=== PATIENT | female | born 1940 | race Caucasian/White ===

== ENCOUNTER 2019-02-27 15:36 | Inpatient (IN) | payer MEDICARE, OTHER ==
[~2019-02-27] VITALS: Ht 157.5 cm; Wt 68.5 kg
[2019-02-27] MEDS ORDERED: SOD CHLORIDE 0.9% 1,000 ML IV STA (15:39)
[2019-02-27 15:46] VITALS: Ht 157.5 cm; Wt 68.5 kg
[2019-02-27] MEDS ORDERED: KETOROLAC 15 MG INJ IV STA (15:52)
[2019-02-27] MEDS ORDERED: LORAZEPAM 2 MG INJ IV ONE (16:00)
[2019-02-27] MEDS ORDERED: ATEN50TA ORAL (16:30)
[2019-02-27] MEDS ORDERED: QUET50TA22 PO (16:30)
[2019-02-27] MEDS ORDERED: ESCI10TA48 ORAL (16:30)
[2019-02-27] MEDS ORDERED: BACL10TA ORAL (16:30)
[2019-02-27] MEDS ORDERED: IBUP-1544 ORAL (16:30)
[2019-02-27] MEDS ORDERED: TRAM50TA2 ORAL (16:30)
[2019-02-27] MEDS ORDERED: HYDR12.53 ORAL (16:30)
[2019-02-27] MEDS ORDERED: ARIP5TAB20 ORAL (16:30)
[2019-02-27] MEDS ORDERED: FURO20TA3 ORAL (16:30)
--- NOTE | 2019-02-27 17:24 | ERD ---
ER Documentation Chief Complaint Chief Complaint BIBA; ALTERED MORE THAN USUAL ACCDG TO FAMILY; MOANING; A/OX1 HPI This is an 78-year-old woman brought in by EMS from [facility] for complaints of chest pain today left hip pain x2 days, weakness, and hypotension at the facility. Symptoms were noted by family members were visiting her today. Her chest pain cannot be accurately described, but she denies cough, she has had no fevers, no vomiting or diarrhea. HPI was limited but supplemented by reviewing longterm records, and speaking to EMS and family members later at the bedside. ROS All systems reviewed and are negative except as per history of present illness. Medications Home Meds Reported Medications Aripiprazole (Aripiprazole) 5 Mg Tablet, 1 TAB ORAL DAILY 02/27/19 Escitalopram Oxalate* (Escitalopram Oxalate*) 10 Mg Tablet, 1 TAB ORAL QHS 02/27/19 Furosemide* (Furosemide*) 20 Mg Tablet, 1 TAB ORAL DAILY 02/27/19 Atenolol* (Atenolol*) 50 Mg Tablet, 1 TAB ORAL DAILY 02/27/19 Baclofen* (Baclofen*) 10 Mg Tablet, 1 TAB ORAL BID PRN for MUSCLE SPASMS 02/27/19 Hydrochlorothiazide (Hydrochlorothiazide) 12.5 Mg Capsule, 1 CAP ORAL DAILY 02/27/19 Quetiapine Fumarate* (Quetiapine Fumarate*) 50 Mg Tablet, 50 MG PO HS, TAB 02/27/19 Ibuprofen* (Ibuprofen*) 800 Mg Tablet, 1 TAB ORAL Q8 02/27/19 Tramadol HCl (Tramadol HCl) 50 Mg Tablet, 1 TAB ORAL Q12 02/27/19 Allergies Allergies: Coded Allergies: No Known Allergy (Unverified , 02/27/19) PMhx/Soc Hypertension, Alzheimer dementia, left intratrochanteric hip fracture status post fall 2 months ago Anesthesia Reaction: No Hx Neurological Disorder: No Hx Respiratory Disorders: No Hx Cardiac Disorders: Yes (HTN) Hx Psychiatric Problems: No Hx Miscellaneous Medical Probl: No (GEN BODY PAIN) Hx Alcohol Use: No Hx Substance Use: No Hx Tobacco Use: No Smoking Status: Never smoker FmHx Family History: No diabetes Physical Exam Vitals Vital Signs Date Temp Pulse Resp B/P (MAP) Pulse Ox O2 O2 Flow FiO2 Time Delivery Rate 02/27/19 68 18 126/90 100 Room Air 17:29 (102) 02/27/19 98.0 65 20 139/66 99 15:46 (90) Physical Exam Const: In moderate discomfort, anxious, afebrile HEENT: Dry mucous membranes, pink conjunctive a, no cervical spine deformity or tenderness Resp: Clear to auscultation bilaterally Cardio: Regular rate and rhythm, no murmurs Abd: Soft, non tender, non distended. No guarding or masses Skin: No petechiae or rashes, mottled skin to the lower extremities bilaterally, no abrasions hematomas or contusions Back: No midline or flank tenderness Ext: No cyanosis, 2+ pitting edema in the lower extremities bilaterally, capillary refill less than 2 seconds, osteoarthritic changes to the knees Neur: Eyes open, patient moving all extremities, agitated, pupils equal round reactive to light, responsive to verbal stimuli Result Diagram: 02/27/19 1550 02/27/19 1550 Results 24 hrs Laboratory Tests Test 02/27/19 15:50 02/27/19 16:02 White Blood Count 13.8 10^3/ul Red Blood Count 4.40 10^6/ul Hemoglobin 12.2 g/dl Hematocrit 39.1 % Mean Corpuscular Volume 88.9 fl Mean Corpuscular Hemoglobin 27.7 pg Mean Corpuscular Hemoglobin Concent 31.2 g/dl Red Cell Distribution Width 13.0 % Platelet Count 410 10^3/UL Mean Platelet Volume 10.1 fl Immature Granulocytes % 0.600 % Neutrophils % 78.4 % Lymphocytes % 13.9 % Monocytes % 6.0 % Eosinophils % 0.9 % Basophils % 0.2 % Nucleated Red Blood Cells % 0.0 /100WBC Immature Granulocytes # 0.080 10^3/ul Neutrophils # 10.8 10^3/ul Lymphocytes # 1.9 10^3/ul Monocytes # 0.8 10^3/ul Eosinophils # 0.1 10^3/ul Basophils # 0.0 10^3/ul Nucleated Red Blood Cells # 0.0 10^3/ul Prothrombin Time 13.1 Sec Prothrombin Time Ratio 1.0 INR International Normalized Ratio 0.98 Activated Partial Thromboplast Time 27.4 Sec Sodium Level 138 mmol/L Potassium Level 3.6 mmol/L Chloride Level 98 mmol/L Carbon Dioxide Level 30 mmol/L Anion Gap 10 Blood Urea Nitrogen 38 mg/dl Creatinine 0.98 mg/dl Est Glomerular Filtrat Rate mL/min mL/min Glucose Level 174 mg/dl Calcium Level 8.6 mg/dl Total Bilirubin 0.6 mg/dl Direct Bilirubin 0.00 mg/dl Indirect Bilirubin 0.6 mg/dl Aspartate Amino Transf (AST/SGOT) 65 IU/L Alanine Aminotransferase (ALT/SGPT) 45 IU/L Alkaline Phosphatase 111 IU/L Troponin I < 0.012 ng/ml B-Type Natriuretic Peptide 2840 PG/ML Total Protein 6.7 g/dl Albumin 3.5 g/dl Globulin 3.20 g/dl Albumin/Globulin Ratio 1.09 Lipase 206 U/L Urine Color JOHN Urine Clarity SLIGHTLY CLOUDY Urine pH 5.0 Urine Specific [place] 1.017 Urine Ketones NEGATIVE mg/dL Urine Nitrite NEGATIVE mg/dL Urine Bilirubin NEGATIVE mg/dL Urine Urobilinogen 2+ mg/dL Urine Leukocyte Esterase NEGATIVE Delgado/ul Urine Microscopic RBC 1 /HPF Urine Microscopic WBC 4 /HPF Urine Bacteria FEW /HPF Urine Hemoglobin NEGATIVE mg/dL Urine Glucose NEGATIVE mg/dL Urine Total Protein NEGATIVE mg/dl Current Medications Medications Dose Sig/Brittney Start Time Status Last (Trade) Ordered Route PRN Stop Time Admin Dose Reason Admin Lorazepam 1 mg ONCE ONCE 02/27/19 DC 02/27/19 (Ativan) IV 16:00 16:03 02/27/19 16:01 Sodium 1,000 ml @ Q1H STAT 02/27/19 DC 02/27/19 Chloride 1,000 mls/hr IV 15:39 16:04 02/27/19 16:38 Ketorolac 15 mg ONCE STAT 02/27/19 DC 02/27/19 Tromethamine IV 15:52 16:03 (Toradol) 02/27/19 15:53 Aspirin 162 mg ONCE ONCE 02/27/19 DC (Aspirin) PO 18:00 02/27/19 18:01 Aspirin 300 mg ONCE ONCE 02/27/19 (Aspirin) WV 18:30 02/27/19 18:31 Procedures/MDM IV line was established patient was placed on rn cardiac rhythm strip revealed a sinus rhythm at about 70 bpm with upright P and T waves. Patient was afebrile For dehydration administered 1 L normal saline IV For agitation I administered lorazepam 1 mg IV and Toradol 15 mg IV x1 for pain 1 view chest x-ray performed, read by me reveals atelectatic changes bilaterally, no acute infiltrates, no pneumothorax CT scan of the brain was negative for acute bleed mass or shift. 1 view pelvis x-ray performed, read by me reveals a left intratrochanteric femur fracture and osteoarthritic changes bilaterally, no other fracture dislocations noted Doppler ultrasound of the bilateral lower extremities was performed, no acute DVT noted. EKG performed, read by me revealed a normal sinus rhythm at 72 bpm, normal axis, narrow QRS complex, no concerning ST elevations or depressions noted CBC was unremarkable, electrolytes revealed dehydration with a BUN/creatinine 38/1, liver function tests normal, troponin negative, BNP elevated, urinalysis negative for infection. I administered aspirin 300 mg per rectum for cardioprotective measures. Departure Diagnosis: Primary Impression: Acute encephalopathy Additional Impressions: Acute dehydration Chest pain Chest pain type: unspecified Qualified Codes: R07.9 - Chest pain, unspecified Condition: JUSTINA Frederick MD February 27, 2019 17:24
[2019-02-27] MEDS ORDERED: ASPIRIN 81 MG TAB PO ONE (18:00)
[2019-02-27] MEDS ORDERED: ASPIRIN 300 MG SUPP PR ONE (18:30)
[2019-02-27] MEDS ORDERED: traMADol 50 MG TAB PO PRN (18:30)
[2019-02-27] MEDS ORDERED: DOCUSATE SODIUM 100 MG CAP PO PRN (18:30)
[2019-02-27] MEDS ORDERED: NACL 0.9% 3 ML SYG IV SCH (18:30)
[2019-02-27] MEDS ORDERED: NITROGLYCERIN (SL) 0.4 MG TAB SL PRN (18:30)
[2019-02-27] MEDS ORDERED: ONDANSETRON 4 MG INJ IV PRN (18:30)
[2019-02-27] MEDS ORDERED: ACETAMINOPHEN 325 MG TAB PO PRN (18:30)
[2019-02-27] MEDS ORDERED: MAGNESIUM HYDROXIDE 30ML CUP PO PRN (18:30)
--- NOTE | 2019-02-27 18:42 | HP ---
Date/Time of Note Date/Time of Note DATE: 02/27/19 TIME: 18:24 Assessment/Plan VTE Prophylaxis SCD applied (from Nsg): Yes Pharmacological prophylaxis: heparin Lines/Catheters IV Catheter Type (from Nrsg): Saline Lock Urinary Cath still in place: Yes Reason Cath still needed: terminal illness/intractable pain Assessment/Plan Assessment/Plan 1. Acute metabolic encephalopathy - per family, more altered than normal and concerned about dehydration - will monitor for improvement in mentation 2. Acute on chronic heart failure - BNP elevated - ECHO ordered to assess EF - CXR negative for congestion - will continue Lasix daily and monitor I/O and daily weights - patient does not have any pulmonary congestion but does have b/l LE edema 3. Left hip fracture - noted with fall 2 months ago and was treated at [facility]. Will triage for records given family states she had R hip repairs but also unsure what side - if new, will consult ortho for evaluation and cardiology consult for clearance - LE dopplers negative 4. Acute chest pain - trop negative and will trend - most likely secondary to CHF - nitro and O2 PRN 5. Dementia - stable - per family, was able to feed self and ambulate to bathroom prior to fall 6. Gait instability - will await records from [place] and PT/OT based on results 7. Diet - Cardiac 8. DVT ppx - Heparin 9. Disposition - Admit to telemetry for treatment of acute congestive heart failure. Will awaiting records from [facility] prior to pursing intervention for L hip fracture. Result Diagram: 02/27/19 1550 02/27/19 1550 Results 24hrs Laboratory Tests Test 02/27/19 15:50 02/27/19 16:02 White Blood Count 13.8 H Red Blood Count 4.40 Hemoglobin 12.2 Hematocrit 39.1 Mean Corpuscular Volume 88.9 Mean Corpuscular Hemoglobin 27.7 L Mean Corpuscular Hemoglobin Concent 31.2 L Red Cell Distribution Width 13.0 Platelet Count 410 Mean Platelet Volume 10.1 Immature Granulocytes % 0.600 H Neutrophils % 78.4 H Lymphocytes % 13.9 L Monocytes % 6.0 Eosinophils % 0.9 Basophils % 0.2 Nucleated Red Blood Cells % 0.0 Immature Granulocytes # 0.080 H Neutrophils # 10.8 H Lymphocytes # 1.9 Monocytes # 0.8 Eosinophils # 0.1 Basophils # 0.0 Nucleated Red Blood Cells # 0.0 Prothrombin Time 13.1 Prothrombin Time Ratio 1.0 INR International Normalized Ratio 0.98 Activated Partial Thromboplast Time 27.4 Sodium Level 138 Potassium Level 3.6 Chloride Level 98 Carbon Dioxide Level 30 Anion Gap 10 Blood Urea Nitrogen 38 H Creatinine 0.98 Est Glomerular Filtrat Rate mL/min Glucose Level 174 Calcium Level 8.6 Total Bilirubin 0.6 Direct Bilirubin 0.00 Indirect Bilirubin 0.6 Aspartate Amino Transf (AST/SGOT) 65 H Alanine Aminotransferase (ALT/SGPT) 45 Alkaline Phosphatase 111 Troponin I < 0.012 B-Type Natriuretic Peptide 2840 H Total Protein 6.7 Albumin 3.5 Globulin 3.20 Albumin/Globulin Ratio 1.09 Lipase 206 Urine Color JOHN Urine Clarity SLIGHTLY CLOUDY A Urine pH 5.0 Urine Specific [place] 1.017 Urine Ketones NEGATIVE Urine Nitrite NEGATIVE Urine Bilirubin NEGATIVE Urine Urobilinogen 2+ H Urine Leukocyte Esterase NEGATIVE Urine Microscopic RBC 1 Urine Microscopic WBC 4 Urine Bacteria FEW A Urine Hemoglobin NEGATIVE Urine Glucose NEGATIVE Urine Total Protein NEGATIVE HPI/ROS Admit Date/Time Admit Date/Time 02/27/19 at 1830 Hx of Present Illness 78 yo F with PMH Alzheimers and HTN presented to ED from board and care for altered mental status. Patients is lethargic since given ativan and history obtained from family at bedside and ED physician. Per family, patient was not acting her normal self and was moaning. She was complaining of chest discomfort and BP was taken by daughter in law. She noticed her BP was low and called 9- 11. She was concerned about dehydration causing her symptoms. Patient did complaining to Ed physician of dizziness and chest discomfort and left hip pain, but denied any shortness of breath. Patient did have an fall a couple months ago and was seen at [facility] where she was found with hip fracture and "glued back together." Family believes it was right hip but following discharge, she was not able to ambulate despite orthopedic surgeon assuring she would walk again. Prior to fall patient was able to manage her ADLs and ambulate without issues. ROS All 12 systems reviewed and pertinent positives as per HPI. Unable to fully obtain ROS given patient sedated. Constitutional: disoriented PMH/Family/Social Past Medical History Medical History: hypertension, other (alzheimers) Medications Current Medications Aspirin (Aspirin) 300 mg ONCE ONCE TN Last administered on 02/27/19at 18:20; Admin Dose 300 MG; Start 02/27/19 at 18:30; Stop 02/27/19 at 18:31 Aripiprazole (Abilify) 5 mg DAILY PO ; Start 02/28/19 at 09:00; Status UNV Atenolol (Tenormin) 50 mg DAILY PO ; Start 02/28/19 at 09:00; Status UNV Escitalopram Oxalate (Lexapro) 10 mg QHS PO ; Start 02/27/19 at 21:00; Status UNV Tramadol HCl (Ultram) 50 mg Q8H PRN PO PAIN LEVEL 4-6; Start 02/27/19 at 18:30; Status UNV Miscellaneous Information 50 mg HS PO ; Start 02/27/19 at 21:00; Status UNV Furosemide (Lasix) 20 mg DAILY IV ; Start 02/28/19 at 09:00 Coded Allergies: No Known Allergy (Unverified , 02/27/19) Past Surgical History Past Surgical Hx: other (right hip repair) Family History Significant Family History: no pertinent family hx Social History Alcohol Use: none Smoking Status: Never smoker Drug Use: none Exam/Review of Systems Vital Signs Vitals Vital Signs Date Temp Pulse Resp B/P (MAP) Pulse Ox O2 O2 Flow FiO2 Time Delivery Rate 02/27/19 68 18 126/90 100 Room Air 17:29 (102) 02/27/19 98.0 15:46 Exam Exam General: Patient is in no acute distress. sedated after given ativan in ED. HEENT: Atraumatic, normocephalic. The pupils are equal, round and reactive. Extraocular motor are intact Neck: Supple with full range of motion. No rigidity or meningismus Chest: Nontender Lungs: Clear to auscultation bilaterally, no wheezing or rhonchi Heart: Normal S1-S2, Regular rhythm and rate. No murmur, S3, or S4 Abdomen: Soft , nontender, nondistended , bowel sounds are present. No guarding no rebound tenderness , No masses or organomegaly. No costovertebral temporal angle mass Extremities: Normal to inspection, 1+ pitting edema LLE. no cyanosis or clubbing Skin: no rashes or lesions Additional Comments Home medications reviewed PROCEDURE: US Lower extremity Venous. Bilateral CLINICAL INDICATION: swelling TECHNIQUE: Multiple sonographic images of the bilateral lower extremity deep venous system was obtained utilizing grayscale, color-flow, compressive sonography and doppler imaging with augmentation. The images were reviewed on a PACS workstation. COMPARISON: None. FINDINGS: There is normal compressibility and flow within the bilateral common femoral, superficial femoral, posterior tibial, peroneal and popliteal veins. The peroneal veins are poorly visualized due to subcutaneous edema. IMPRESSION: No sonographic evidence for deep venous thrombosis. Subcutaneous edema is seen in the lower extremities. RPTAT: AA .Lynette Persaud MD, Date Time Electronically viewed and signed by .Lynette Persaud MD, MD on 02/27/2019 17:39 PROCEDURE: Pelvis. CLINICAL INDICATION: Status post trauma TECHNIQUE: A single AP view the pelvis. COMPARISON: Pelvis, 01/03/2019 FINDINGS: Since the previous exam there is now a displaced left intertrochanteric fracture with slight superior subluxation of the proximal femur. There is varus deformity of the fracture site. The femoral head is present within the acetabulum. Images of the right femur again demonstrate moderate to severe degenerative changes with joint space narrowing. The osseous structures are osteopenic. Pubic symphysis is intact. The sacroiliac joints are not well visualized. The sacrum is partially obscured secondary to overlying stool content. Soft tissues are unremarkable. IMPRESSION: There is a left intertrochanteric fracture with varus deformity. RPTAT: [facility] Physician Manuel Date Time Electronically viewed and signed by Physician Manuel on 02/27/2019 16:47 PROCEDURE: CT Brain without contrast. CLINICAL INDICATION: Altered level of consciousness TECHNIQUE: A CT of the brain was performed on a multidetector CT scanner utilizing axial sections from the skull base through the vertex without contrast. Images were reviewed on a high-resolution PACS workstation. Exam CTDI = 38.54 mGy and the DLP = 634.23 mGy-cm. DICOM images are available. One or more of the following dose reduction techniques were used: Automated exposure control. Adjustment of the mA and/or kV according to patient size. Use of iterative reconstruction technique. COMPARISON: CT head 01/15/2019 and MRI brain 01/03/2019. FINDINGS: Mild diffuse cerebral and cerebellar atrophy is present. There is proportionate dilatation of the ventricular system and sulci in a symmetric fashion. There is prominence of the extraaxial spaces secondary to atrophy. There is no evidence of intracranial hemorrhage, mass effect or midline shift. There is approximately 1.9 x 2.1 cm (craniocaudal x transverse) Planum sphenoidale meningioma with mild surrounding vasogenic edema in the left anterior frontal lobe. No abnormal intra-axial or extra-axial fluid collections are seen. The density of the brain is normal and the soriano/white matter diff erentiation is well preserved. Mild to moderate patchy diffuse deep white matter microangiopathic ischemic change is seen. The osseous structures are intact. Mild mucosal thickening is seen in the sphenoid sinuses. The remainder of the paranasal sinuses are clear. Intracranial vascular calcifications are present. IMPRESSION: 1. No intracranial hemorrhage, mass effect or midline shift. 2. Mild generalized atrophy. Mild to moderate chronic microangiopathic ischemic change. 3. Intracranial atherosclerosis. 4. 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 RPTAT: [facility] .Ambreen Jamil MD, MD Date Time Electronically viewed and signed by .Ambreen Jamil MD, on 02/27/2019 16:57 PROCEDURE: XR Chest. CLINICAL INDICATION: Chest pain TECHNIQUE: AP chest x-ray. COMPARISON: CR NON GRID CHEST 02/26/2015; FINDINGS: The cardiomediastinal silhouette is grossly stable. There is a apparent lucency in the mid trachea which may represent a direct visualization into the trachea lumen as it is probably tortuous.. The lungs are clear. No focal opacification is seen. There is no pleural effusion or pneumothorax. The osseous structures are unremarkable. IMPRESSION: No acute cardiopulmonary process RPTAT: [facility] Physician Manuel Date Time Electronically viewed and signed by Johan Paredes Physician on 02/27/2019 16:48 VIRI STOKES MD February 27, 2019 18:42
[2019-02-27 20:40] VITALS: PULSE 69
[2019-02-27 22:30] VITALS: BP 129/59; PULSE 79; RESP 18
[2019-02-27] MEDS: ESCITALOPRAM 10 MG TAB PO SCH (23:01)
[2019-02-27] MEDS: QUETIAPINE 25 MG TAB PO SCH (23:01)
[2019-02-27] MEDS: FAMOTIDINE 20 MG TAB PO SCH (23:03)
[2019-02-28] VITALS (25 sets, daily range): BP systolic 109–189; BP diastolic 55–102; PULSE 54–87; RESP 12–21
[2019-02-28] MEDS: ENOXAPARIN 40 MG/0.4 ML SYG SC SCH (07:59)
[2019-02-28] MEDS: FAMOTIDINE 20 MG TAB PO SCH (09:00)
[2019-02-28] MEDS: ARIPIPRAZOLE 5 MG TAB PO SCH (09:00)
[2019-02-28] MEDS: ATENOLOL 50 MG TAB PO SCH (09:00)
[2019-02-28] MEDS ORDERED: FUROSEMIDE 20 MG INJ IV SCH (09:00)
[2019-02-28] MEDS: POTASSIUM CHLORIDE 100 ML IVPB SCH ×3 (09:08→13:31)
--- NOTE | 2019-02-28 10:07 | RADRPT ---
Echocardiogram Report Patient Name: Mayur ANNA ID: [id number] : 1940 (78y 4m)Study Date: 02/28/2019 7:53:53 AM Gender: FAccession #: [id number] Tech: ChonRafy Doll [facility] Location: [facility] Ref.Physician: VIRI STOKES Height(Cm): BSA: Weight(Kg): Quality: AdequateOrder Physician: VIRI STOKES Account #: Procedures: Echocardiographic Report: Transthoracic echocardiogram with complete 2D, M-Mode, and doppler examination. Indications: Evaluate Left Ventricular function, and Congestive Heart Failure. Measurements: 2D/M Mode Doppler Measurement Value Normal Range Measurement Value Normal Range LVIDd 2D 4.0 [ 3.8 - 5.2 ] cm ROBERT VTI 2.8 [ 2.0 - 4.0 ] cm2 LVIDs 2D 1.6 [ 2.2 - 3.5 ] cm AV Mean Diego 1.5 [ 70.0 - 90.0 ] cm/sec LVPWd 2D 1.1 [ 0.6 - 0.9 ] cm AV Mean PG 11.0 [ 2.0 - 4.0 ] mmHg IVSd 2D 1.0 [ 0.6 - 0.9 ] cm AV VTI 43.8 cm AoR Diam 2D 2.6 [ 2.3 - 3.1 ] cm LVOT Mean Diego 1.4 [ 60.0 - 80.0 ] cm/sec EDV 2D 68.3 [ 46.0 - 106.0 ] ml LVOT Mean PG 9.0 [ 1.0 - 3.0 ] mmHg ESV 2D 7.4 [ 14.0 - 42.0 ] ml LVOT Peak Diego 2.0 [ 70.0 - 110.0 ] cm/sec EF 2D 89.2 [ 54.0 - 74.0 ] percent LVOT Peak PG 16.0 [ 2.0 - 6.0 ] mmHg LA Dimen 2D 3.0 [ 2.7 - 3.8 ] cm LVOT VTI 38.7 [ 20.0 - 30.0 ] cm LVOT Diam 2.0 [ 2.1 - 2.5 ] cm MV E Peak Diego 0.7 [ 60.0 - 130.0 ] cm/sec MV A Peak Diego 1.0 [ 100.0 - 120.0 ] cm/sec MV E/A 0.6 [ 0.8 - 1.5 ] ratio MV Decel Time 190 [ 104 - 258 ] msec Lat E` Diego 0.1 [ 10.0 - 15.0 ] cm/sec Lateral E/E` 7.9 [ 1.0 - 2.0 ] ratio MV E/A 0.6 [ 0.8 - 1.5 ] ratio TR Peak Diego 1.8 [ 100.0 - 280.0 ] cm/sec TR Peak PG 13.0 mmHg RVSP 16.0 [ 10.0 - 36.0 ] mmHg RA Pressure 3.0 mmHg Findings: Left Ventricle: Normal left ventricular systolic function. Normal left ventricular cavity size. Mild concentric left ventricular hypertrophy. Ejection fraction is visually estimated at 65 %. Tissue Doppler/Mitral Doppler indices are consistent with impaired relaxation (Stage I diastolic dysfunction). Right Ventricle: Normal right ventricular size. Normal right ventricular systolic function. Left Atrium: The left atrium is normal in size. Right Atrium: The right atrium is normal in size. Mitral Valve: Mitral valve leaflets appear mildly thickened. Mild mitral annular calcification. Trace mitral regurgitation. Aortic Valve: Aortic valve Max velocity 2.18 m/sec. Max PG 19.00 mmHg. Mean PG 11.00 mmHg. Aortic valve area 2.80 cm2. Aortic sclerosis without significant stenosis. Trace aortic valve regurgitation. Tricuspid Valve: Normal appearance of the tricuspid valve. The estimated Peak RVSP is 16 mmHg. There is trace tricuspid regurgitation. Pulmonic Valve: Pulmonic valve not well visualized. Pericardium: Normal pericardium with no significant pericardial effusion. Aorta: Normal aortic root. IVC: Normal size and normal respiratory collapse consistent with normal right atrial pressure. Conclusions: Normal left ventricular systolic function. Normal left ventricular cavity size. Mild concentric left ventricular hypertrophy. Ejection fraction is visually estimated at 65 %. Tissue Doppler/Mitral Doppler indices are consistent with impaired relaxation (Stage I diastolic dysfunction). Mitral valve leaflets appear mildly thickened. Mild mitral annular calcification. Trace mitral regurgitation. Aortic valve Max velocity 2.18 m/sec. Max PG 19.00 mmHg. Mean PG 11.00 mmHg. Aortic valve area 2.80 cm2. Aortic sclerosis without significant stenosis. Trace aortic valve regurgitation. Normal appearance of the tricuspid valve. The estimated Peak RVSP is 16 mmHg. There is trace tricuspid regurgitation. Electronically Signed By: Chris Smith 2019-02-28 10:07:05 PDT
[2019-02-28] MEDS: D5W-0.45 NACL + KCL 20 MEQ 1,000 ML IV SCH (10:28)
--- NOTE | 2019-02-28 10:42 | CONS ---
Assessment/Plan Assessment/Plan Hospital Course (Demo Recall) Cardiovascular preop evaluation Hip fracture Hypertension Aortic valve disorder Dementia Encephalopathy Hypokalemia Elevated BNP level. Clinically does not appear to be in decompensated heart f ailure though Recommendations: Her potassium is being replaced now. I will discontinue the Lasix given especially her hypokalemia. We will replace electrolytes as needed Continue the beta-william as tolerated We will obtain a baseline EKG Otherwise no further cardiac work-up would be indicated prior to proposed hip surgery. Patient has multiple risk factors with replacement at least at moderate risk of cardiovascular event. Above was discussed with patient and son extensively Thank you for his referral we will continue to follow along with SADE DEMPSEY MD [facility] Consultation Date/Type/Reason Admit Date/Time 02/27/19 at 1830 Date of Consultation: February 28, 2019 Type of Consult Cardiology Reason for Consultation cv preop evaluation Requesting Provider: VIRI STOKES MD Date/Time of Note DATE: 02/28/19 TIME: 10:36 Hx of Present Illness Interventional cardiology consultation note Chief complaint: encephalopathy Reason for consult: Cardiovascular preop evaluation, elevated BNP History of present illness: Thank you for this referral. History was obtained from the patient's son dis cussion with the staff and physicians. Patient himself is nonverbal and history to me. This is a 78-year-old Filipino female with history of severe dementia who was brought in because of positive consciousness. Patient pain has become more confused and altered was [facility]. Patient also noted to have left hip fracture and has been scheduled for hip surgery this afternoon. Patient himself is unable to provide any reliable history to me she has severe dementia has not been able to answer any of my question. According to the son she has had no cardiac disorders in the past. No history of diabetes. She has had hip surgeries as of some sort per son's report 2 months ago and no cardiac complication was noted. She is not able to walk much she has severe pain apparently with any movement Allergies: No known drug allergies Medications were reviewed as per medical reconciliation sheet Family history: No reported history of early coronary artery disease Social history: Non-smoker Past medical history: Dementia. According to the son at baseline she knows her son but not anybody else. , status post some sort of hip injuries at the right side per family report. Possibly mild hypertension Review of system: Patient denies all others except for above-mentioned Past Medical History Home Meds Reported Medications Aripiprazole (Aripiprazole) 5 Mg Tablet, 1 TAB ORAL DAILY 02/27/19 Escitalopram Oxalate* (Escitalopram Oxalate*) 10 Mg Tablet, 1 TAB ORAL QHS 02/27/19 Furosemide* (Furosemide*) 20 Mg Tablet, 1 TAB ORAL DAILY 02/27/19 Atenolol* (Atenolol*) 50 Mg Tablet, 1 TAB ORAL DAILY 02/27/19 Baclofen* (Baclofen*) 10 Mg Tablet, 1 TAB ORAL BID PRN for MUSCLE SPASMS 02/27/19 Hydrochlorothiazide (Hydrochlorothiazide) 12.5 Mg Capsule, 1 CAP ORAL DAILY 02/27/19 Quetiapine Fumarate* (Quetiapine Fumarate*) 50 Mg Tablet, 50 MG PO HS, TAB 02/27/19 Ibuprofen* (Ibuprofen*) 800 Mg Tablet, 1 TAB ORAL Q8 02/27/19 Tramadol HCl (Tramadol HCl) 50 Mg Tablet, 1 TAB ORAL Q12 02/27/19 Medications Current Medications Aripiprazole (Abilify) 5 mg DAILY PO ; Start 02/28/19 at 09:00 Atenolol (Tenormin) 50 mg DAILY PO ; Start 02/28/19 at 09:00 Escitalopram Oxalate (Lexapro) 10 mg QHS PO Last administered on 02/27/19at 23:01; Admin Dose 10 MG; Start 02/27/19 at 21:00 Tramadol HCl (Ultram) 50 mg Q8H PRN PO PAIN LEVEL 4-6; Start 02/27/19 at 18:30 Quetiapine Fumarate (Seroquel) 50 mg HS PO Last administered on 02/27/19at 23:01 ; Admin Dose 50 MG; Start 02/27/19 at 21:00 Furosemide (Lasix) 20 mg DAILY IV Last administered on 02/28/19at 09:09; Admin Dose 20 MG; Start 02/28/19 at 09:00 IV Flush (NS 3 ml) 3 ml PER PROTOCOL IV ; Start 02/27/19 at 18:30 Ondansetron HCl (Zofran Inj) 4 mg Q6H PRN IV NAUSEA/VOMITING; Start 02/27/19 at 18:30 Nitroglycerin (Nitroglycerin (Sl Tab) 0.4 Mg) 1 tab Q5M PRN SL .CHEST PAIN; Start 02/27/19 at 18:30 Acetaminophen (Tylenol Tab) 650 mg Q6H PRN PO .PAIN 1-3 OR TEMP; Start 02/27/19 at 18:30 Docusate Sodium (Colace) 100 mg Q12H PRN PO .CONSTIPATION; Start 02/27/19 at 18:30 Magnesium Hydroxide (Milk Of Mag) 30 ml DAILY PRN PO .CONSTIPATION; Start 02/27/19 at 18:30 Famotidine (Pepcid) 20 mg DAILY PO Last administered on 02/27/19at 23:03; Admin Dose 20 MG; Start 02/27/19 at 21:00 Enoxaparin Sodium (Lovenox) 40 mg DAILY SC ; Start 02/28/19 at 09:00 Potassium Chloride 100 ml @ 50 mls/hr Q2H IVPB Last administered on 02/28/19at 09:08; Admin Dose 50 MLS/HR; Start 02/28/19 at 09:00; Stop 02/28/19 at 14:59 Potassium Chloride/Dextrose/ Sod Cl 1,000 ml @ 40 mls/hr Q24H IV Last admini stered on 02/28/19at 10:28; Admin Dose 40 MLS/HR; Start 02/28/19 at 09:30 Allergies: Coded Allergies: No Known Allergy (Unverified , 02/27/19) Past Surgical History Past Surgical Hx: other (right hip repair) Social History Alcohol Use: none Smoking Status: Never smoker Drug Use: none Exam/Review of Systems Vital Signs Vitals Vital Signs Date Temp Pulse Resp B/P (MAP) Pulse Ox O2 O2 Flow FiO2 Time Delivery Rate 02/28/19 76 08:20 02/28/19 98.6 20 127/58 94 07:11 (81) 02/28/19 Room Air 00:55 Exam Exam General: no acute distress HEENT: NC/AT. pupils are equal. round. NECK: NO JVD. no stridor. CV: RRR. systolic murmur; no gallop or rubs. PULM: no wheezing or rhonchi. GI: SOFT, NT, ND, no rebound or guarding Extremity: trace B/L LE edema. no clubbing. neuro: awake but no pneumonias answer questions Psych: calm rectal: deferred Echocardiogram was personally reviewed which shows: ormal left ventricular systolic function. Normal left ventricular cavity size. Mild concentric left ventricular hypertrophy. Ejection fraction is visually estimated at 65 %. Tissue Doppler/Mitral Doppler indices are consistent with impaired relaxation (Stage I diastolic dysfunction). Mitral valve leaflets appear mildly thickened. Mild mitral annular calcification. Trace mitral regurgitation. Aortic valve Max velocity 2.18 m/sec. Max PG 19.00 mmHg. Mean PG 11.00 mmHg. Aortic valve area 2.80 cm2. Aortic sclerosis without significant stenosis. Trace aortic valve regurgitation. Normal appearance of the tricuspid valve. The estimated Peak RVSP is 16 mmHg. There is trace tricuspid regurgitation. Labs Result Diagram: 02/28/19 0503 02/28/19 0503 Results 24hrs Laboratory Tests Test 02/27/19 15:50 02/27/19 16:02 02/27/19 19:03 02/27/19 19:04 White Blood Count 13.8 H Red Blood Count 4.40 Hemoglobin 12.2 Hematocrit 39.1 Mean Corpuscular 88.9 Volume Mean Corpuscular 27.7 L Hemoglobin Mean Corpuscular 31.2 L Hemoglobin Concen t Red Cell 13.0 Distribution Width Platelet Count 410 Mean Platelet 10.1 Volume Immature 0.600 H Granulocytes % Neutrophils % 78.4 H Lymphocytes % 13.9 L Monocytes % 6.0 Eosinophils % 0.9 Basophils % 0.2 Nucleated Red 0.0 Blood Cells % Immature 0.080 H Granulocytes # Neutrophils # 10.8 H Lymphocytes # 1.9 Monocytes # 0.8 Eosinophils # 0.1 Basophils # 0.0 Nucleated Red 0.0 Blood Cells # Prothrombin Time 13.1 Prothrombin Time 1.0 Ratio INR International 0.98 Normalized Ratio Activated 27.4 Partial Thrombopl ast Time Sodium Level 138 Potassium Level 3.6 Chloride Level 98 Carbon Dioxide 30 Level Anion Gap 10 Blood Urea 38 H Nitrogen Creatinine 0.98 Est Glomerular Filtrat Rate mL/min Glucose Level 174 Calcium Level 8.6 Total Bilirubin 0.6 Direct Bilirubin 0.00 Indirect 0.6 Bilirubin Aspartate Amino 65 H Transf (AST/SGOT) Alanine 45 Aminotransferase (ALT/SGPT) Alkaline 111 Phosphatase Troponin I < 0.012 < 0.012 B-Type 2840 H Natriuretic Peptide Total Protein 6.7 Albumin 3.5 Globulin 3.20 Albumin/Globulin 1.09 Ratio Lipase 206 Urine Color JOHN Urine Clarity SLIGHTLY CLOUDY A Urine pH 5.0 Urine Specific 1.017 [place] Urine Ketones NEGATIVE Urine Nitrite NEGATIVE Urine Bilirubin NEGATIVE Urine 2+ H Urobilinogen Urine Leukocyte NEGATIVE Esterase Urine Microscopic 1 RBC Urine Microscopic 4 WBC Urine Bacteria FEW A Urine Hemoglobin NEGATIVE Urine Glucose NEGATIVE Urine Total NEGATIVE Protein Creatine Kinase 757 H Creatine Kinase 1.6 Index Creatinine Kinase 11.90 H MB (Mass) Hemoglobin A1c 5.3 Test 02/28/19 00:45 02/28/19 05:03 Creatine Kinase 593 H Creatine Kinase 1.4 Index Creatinine Kinase 8.21 H MB (Mass) Troponin I < 0.012 White Blood Count 9.8 # Red Blood Count 3.46 #L Hemoglobin 9.7 #L Hematocrit 30.0 #L Mean Corpuscular 86.7 Volume Mean Corpuscular 28.0 L Hemoglobin Mean Corpuscular 32.3 Hemoglobin Concen t Red Cell 13.1 Distribution Width Platelet Count 325 # Mean Platelet 10.9 H Volume Immature 0.400 Granulocytes % Neutrophils % 66.6 Lymphocytes % 21.4 Monocytes % 9.0 Eosinophils % 2.3 Basophils % 0.3 Nucleated Red 0.0 Blood Cells % Immature 0.040 H Granulocytes # Neutrophils # 6.5 Lymphocytes # 2.1 Monocytes # 0.9 Eosinophils # 0.2 Basophils # 0.0 Nucleated Red 0.0 Blood Cells # Sodium Level 137 Potassium Level 2.9 *L Chloride Level 104 Carbon Dioxide 29 Level Anion Gap 4 L Blood Urea 30 H Nitrogen Creatinine 0.61 Est Glomerular Filtrat Rate mL/min Glucose Level 81 # Calcium Level 7.5 L Magnesium Level 1.9 Medications Medications Current Medications Aripiprazole (Abilify) 5 mg DAILY PO ; Start 02/28/19 at 09:00 Atenolol (Tenormin) 50 mg DAILY PO ; Start 02/28/19 at 09:00 Escitalopram Oxalate (Lexapro) 10 mg QHS PO Last administered on 02/27/19at 23:01; Admin Dose 10 MG; Start 02/27/19 at 21:00 Tramadol HCl (Ultram) 50 mg Q8H PRN PO PAIN LEVEL 4-6; Start 02/27/19 at 18:30 Quetiapine Fumarate (Seroquel) 50 mg HS PO Last administered on 02/27/19at 2 3:01; Admin Dose 50 MG; Start 02/27/19 at 21:00 Furosemide (Lasix) 20 mg DAILY IV Last administered on 02/28/19at 09:09; Admin Dose 20 MG; Start 02/28/19 at 09:00 IV Flush (NS 3 ml) 3 ml PER PROTOCOL IV ; Start 02/27/19 at 18:30 Ondansetron HCl (Zofran Inj) 4 mg Q6H PRN IV NAUSEA/VOMITING; Start 02/27/19 at 18:30 Nitroglycerin (Nitroglycerin (Sl Tab) 0.4 Mg) 1 tab Q5M PRN SL .CHEST PAIN; Start 02/27/19 at 18:30 Acetaminophen (Tylenol Tab) 650 mg Q6H PRN PO .PAIN 1-3 OR TEMP; Start 02/27/19 at 18:30 Docusate Sodium (Colace) 100 mg Q12H PRN PO .CONSTIPATION; Start 02/27/19 at 18:30 Magnesium Hydroxide (Milk Of Mag) 30 ml DAILY PRN PO .CONSTIPATION; Start 02/27/19 at 18:30 Famotidine (Pepcid) 20 mg DAILY PO Last administered on 02/27/19at 23:03; Admin Dose 20 MG; Start 02/27/19 at 21:00 Enoxaparin Sodium (Lovenox) 40 mg DAILY SC ; Start 02/28/19 at 09:00 Potassium Chloride 100 ml @ 50 mls/hr Q2H IVPB Last administered on 02/28/19at 09:08; Admin Dose 50 MLS/HR; Start 02/28/19 at 09:00; Stop 02/28/19 at 14:59 Potassium Chloride/Dextrose/ Sod Cl 1,000 ml @ 40 mls/hr Q24H IV Last ad ministered on 02/28/19at 10:28; Admin Dose 40 MLS/HR; Start 02/28/19 at 09:30 SADE DEMPSEY MD February 28, 2019 10:42
--- NOTE | 2019-02-28 10:57 | PN ---
Date/Time of Note Date/Time of Note DATE: 02/28/19 TIME: 10:56 Assessment/Plan VTE Prophylaxis SCD applied (from Nsg): Yes Pharmacological prophylaxis: heparin Lines/Catheters IV Catheter Type (from Nrsg): Saline Lock Urinary Cath still in place: Yes Reason Cath still needed: terminal illness/intractable pain Assessment/Plan Assessment/Plan 1. Acute metabolic encephalopathy - still pleasantly confused but remains stable - continue monitoring for improvement 2. Acute on chronic heart failure - BNP elevated - ECHO results noted with preserved EF - CXR negative for congestion - Cardiology consultation appreciated 3. Left hip fracture s/p fall 2 months ago - Ortho on board and plans for intervention today. Cleared by cardiology and medicine to proceed - LE dopplers negative 4. Acute chest pain- resolved - serial trop neg 5. Dementia - stable - per family, was able to feed self and ambulate to bathroom prior to fall 6. Gait instability - PT per Ortho following surgical intervention 7. Disposition - Plans for L hip repair today. Discharge planning based on how patient progresses with physical therapy Result Diagram: 02/28/19 0503 02/28/19 0503 Results 24hrs Laboratory Tests Test 02/27/19 15:50 02/27/19 16:02 02/27/19 19:03 02/27/19 19:04 White Blood Count 13.8 H Red Blood Count 4.40 Hemoglobin 12.2 Hematocrit 39.1 Mean Corpuscular 88.9 Volume Mean Corpuscular 27.7 L Hemoglobin Mean Corpuscular 31.2 L Hemoglobin Concen t Red Cell 13.0 Distribution Width Platelet Count 410 Mean Platelet 10.1 Volume Immature 0.600 H Granulocytes % Neutrophils % 78.4 H Lymphocytes % 13.9 L Monocytes % 6.0 Eosinophils % 0.9 Basophils % 0.2 Nucleated Red 0.0 Blood Cells % Immature 0.080 H Granulocytes # Neutrophils # 10.8 H Lymphocytes # 1.9 Monocytes # 0.8 Eosinophils # 0.1 Basophils # 0.0 Nucleated Red 0.0 Blood Cells # Prothrombin Time 13.1 Prothrombin Time 1.0 Ratio INR International 0.98 Normalized Ratio Activated 27.4 Partial Thrombopl ast Time Sodium Level 138 Potassium Level 3.6 Chloride Level 98 Carbon Dioxide 30 Level Anion Gap 10 Blood Urea 38 H Nitrogen Creatinine 0.98 Est Glomerular Filtrat Rate mL/min Glucose Level 174 Calcium Level 8.6 Total Bilirubin 0.6 Direct Bilirubin 0.00 Indirect 0.6 Bilirubin Aspartate Amino 65 H Transf (AST/SGOT) Alanine 45 Aminotransferase (ALT/SGPT) Alkaline 111 Phosphatase Troponin I < 0.012 < 0.012 B-Type 2840 H Natriuretic Peptide Total Protein 6.7 Albumin 3.5 Globulin 3.20 Albumin/Globulin 1.09 Ratio Lipase 206 Urine Color JOHN Urine Clarity SLIGHTLY CLOUDY A Urine pH 5.0 Urine Specific 1.017 [place] Urine Ketones NEGATIVE Urine Nitrite NEGATIVE Urine Bilirubin NEGATIVE Urine 2+ H Urobilinogen Urine Leukocyte NEGATIVE Esterase Urine Microscopic 1 RBC Urine Microscopic 4 WBC Urine Bacteria FEW A Urine Hemoglobin NEGATIVE Urine Glucose NEGATIVE Urine Total NEGATIVE Protein Creatine Kinase 757 H Creatine Kinase 1.6 Index Creatinine Kinase 11.90 H MB (Mass) Hemoglobin A1c 5.3 Test 02/28/19 00:45 02/28/19 05:03 Creatine Kinase 593 H Creatine Kinase 1.4 Index Creatinine Kinase 8.21 H MB (Mass) Troponin I < 0.012 White Blood Count 9.8 # Red Blood Count 3.46 #L Hemoglobin 9.7 #L Hematocrit 30.0 #L Mean Corpuscular 86.7 Volume Mean Corpuscular 28.0 L Hemoglobin Mean Corpuscular 32.3 Hemoglobin Concen t Red Cell 13.1 Distribution Width Platelet Count 325 # Mean Platelet 10.9 H Volume Immature 0.400 Granulocytes % Neutrophils % 66.6 Lymphocytes % 21.4 Monocytes % 9.0 Eosinophils % 2.3 Basophils % 0.3 Nucleated Red 0.0 Blood Cells % Immature 0.040 H Granulocytes # Neutrophils # 6.5 Lymphocytes # 2.1 Monocytes # 0.9 Eosinophils # 0.2 Basophils # 0.0 Nucleated Red 0.0 Blood Cells # Sodium Level 137 Potassium Level 2.9 *L Chloride Level 104 Carbon Dioxide 29 Level Anion Gap 4 L Blood Urea 30 H Nitrogen Creatinine 0.61 Est Glomerular Filtrat Rate mL/min Glucose Level 81 # Calcium Level 7.5 L Magnesium Level 1.9 Subjective 24 Hr Interval Summary Free Text/Dictation Patient still confused and moaning with left leg moved. No acute overnight events. Plans for L hip surgery today. Exam/Review of Systems Exam Vitals Vital Signs Date Temp Pulse Resp B/P (MAP) Pulse Ox O2 O2 Flow FiO2 Time Delivery Rate 02/28/19 76 08:20 02/28/19 98.6 20 127/58 94 07:11 (81) 02/28/19 Room Air 00:55 Exam General: Patient is in no acute distress. pleasantly confused Neck: Supple Chest: Nontender Lungs: Clear to auscultation bilaterally, no wheezing or rhonchi Heart: Normal S1-S2, Regular rhythm and rate. No murmur, S3, or S4 Abdomen: Soft , nontender, nondistended , bowel sounds are present. No guarding no rebound tenderness Extremities: Normal to inspection, 1+ pitting edema LLE. no cyanosis or clubbing Skin: no rashes or lesions Results Results 24hrs Laboratory Tests Test 02/27/19 15:50 02/27/19 16:02 02/27/19 19:03 02/27/19 19:04 White Blood Count 13.8 H Red Blood Count 4.40 Hemoglobin 12.2 Hematocrit 39.1 Mean Corpuscular 88.9 Volume Mean Corpuscular 27.7 L Hemoglobin Mean Corpuscular 31.2 L Hemoglobin Concen t Red Cell 13.0 Distribution Width Platelet Count 410 Mean Platelet 10.1 Volume Immature 0.600 H Granulocytes % Neutrophils % 78.4 H Lymphocytes % 13.9 L Monocytes % 6.0 Eosinophils % 0.9 Basophils % 0.2 Nucleated Red 0.0 Blood Cells % Immature 0.080 H Granulocytes # Neutrophils # 10.8 H Lymphocytes # 1.9 Monocytes # 0.8 Eosinophils # 0.1 Basophils # 0.0 Nucleated Red 0.0 Blood Cells # Prothrombin Time 13.1 Prothrombin Time 1.0 Ratio INR International 0.98 Normalized Ratio Activated 27.4 Partial Thrombopl ast Time Sodium Level 138 Potassium Level 3.6 Chloride Level 98 Carbon Dioxide 30 Level Anion Gap 10 Blood Urea 38 H Nitrogen Creatinine 0.98 Est Glomerular Filtrat Rate mL/min Glucose Level 174 Calcium Level 8.6 Total Bilirubin 0.6 Direct Bilirubin 0.00 Indirect 0.6 Bilirubin Aspartate Amino 65 H Transf (AST/SGOT) Alanine 45 Aminotransferase (ALT/SGPT) Alkaline 111 Phosphatase Troponin I < 0.012 < 0.012 B-Type 2840 H Natriuretic Peptide Total Protein 6.7 Albumin 3.5 Globulin 3.20 Albumin/Globulin 1.09 Ratio Lipase 206 Urine Color JOHN Urine Clarity SLIGHTLY CLOUDY A Urine pH 5.0 Urine Specific 1.017 [place] Urine Ketones NEGATIVE Urine Nitrite NEGATIVE Urine Bilirubin NEGATIVE Urine 2+ H Urobilinogen Urine Leukocyte NEGATIVE Esterase Urine Microscopic 1 RBC Urine Microscopic 4 WBC Urine Bacteria FEW A Urine Hemoglobin NEGATIVE Urine Glucose NEGATIVE Urine Total NEGATIVE Protein Creatine Kinase 757 H Creatine Kinase 1.6 Index Creatinine Kinase 11.90 H MB (Mass) Hemoglobin A1c 5.3 Test 02/28/19 00:45 02/28/19 05:03 Creatine Kinase 593 H Creatine Kinase 1.4 Index Creatinine Kinase 8.21 H MB (Mass) Troponin I < 0.012 White Blood Count 9.8 # Red Blood Count 3.46 #L Hemoglobin 9.7 #L Hematocrit 30.0 #L Mean Corpuscular 86.7 Volume Mean Corpuscular 28.0 L Hemoglobin Mean Corpuscular 32.3 Hemoglobin Concen t Red Cell 13.1 Distribution Width Platelet Count 325 # Mean Platelet 10.9 H Volume Immature 0.400 Granulocytes % Neutrophils % 66.6 Lymphocytes % 21.4 Monocytes % 9.0 Eosinophils % 2.3 Basophils % 0.3 Nucleated Red 0.0 Blood Cells % Immature 0.040 H Granulocytes # Neutrophils # 6.5 Lymphocytes # 2.1 Monocytes # 0.9 Eosinophils # 0.2 Basophils # 0.0 Nucleated Red 0.0 Blood Cells # Sodium Level 137 Potassium Level 2.9 *L Chloride Level 104 Carbon Dioxide 29 Level Anion Gap 4 L Blood Urea 30 H Nitrogen Creatinine 0.61 Est Glomerular Filtrat Rate mL/min Glucose Level 81 # Calcium Level 7.5 L Magnesium Level 1.9 Medications Medication Current Medications Aripiprazole (Abilify) 5 mg DAILY PO ; Start 02/28/19 at 09:00 Atenolol (Tenormin) 50 mg DAILY PO ; Start 02/28/19 at 09:00 Escitalopram Oxalate (Lexapro) 10 mg QHS PO Last administered on 02/27/19at 23:01; Admin Dose 10 MG; Start 02/27/19 at 21:00 Tramadol HCl (Ultram) 50 mg Q8H PRN PO PAIN LEVEL 4-6; Start 02/27/19 at 18:30 Quetiapine Fumarate (Seroquel) 50 mg HS PO Last administered on 02/27/19at 23:01; Admin Dose 50 MG; Start 02/27/19 at 21:00 IV Flush (NS 3 ml) 3 ml PER PROTOCOL IV ; Start 02/27/19 at 18:30 Ondansetron HCl (Zofran Inj) 4 mg Q6H PRN IV NAUSEA/VOMITING; Start 02/27/19 at 18:30 Nitroglycerin (Nitroglycerin (Sl Tab) 0.4 Mg) 1 tab Q5M PRN SL .CHEST PAIN; Start 02/27/19 at 18:30 Acetaminophen (Tylenol Tab) 650 mg Q6H PRN PO .PAIN 1-3 OR TEMP; Start 02/27/19 at 18:30 Docusate Sodium (Colace) 100 mg Q12H PRN PO .CONSTIPATION; Start 02/27/19 at 18:30 Magnesium Hydroxide (Milk Of Mag) 30 ml DAILY PRN PO .CONSTIPATION; Start 02/27/19 at 18:30 Famotidine (Pepcid) 20 mg DAILY PO Last administered on 02/27/19at 23:03; Admin Dose 20 MG; Start 02/27/19 at 21:00 Enoxaparin Sodium (Lovenox) 40 mg DAILY SC ; Start 02/28/19 at 09:00 Potassium Chloride 100 ml @ 50 mls/hr Q2H IVPB Last administered on 02/28/19at 09:08; Admin Dose 50 MLS/HR; Start 02/28/19 at 09:00; Stop 02/28/19 at 14:59 Potassium Chloride/Dextrose/ Sod Cl 1,000 ml @ 40 mls/hr Q24H IV Last administered on 02/28/19at 10:28; Admin Dose 40 MLS/HR; Start 02/28/19 at 09:30 Magnesium Sulfate 50 ml @ 25 mls/hr ONCE ONCE IVPB ; Start 02/28/19 at 11:00; Stop 02/28/19 at 12:59 [facility]isc[facility] This patient briones... PRN PRN XX WOUND CARE; Start 02/28/19 at 11:00 VIRI STOKES MD February 28, 2019 10:56
[2019-02-28] MEDS ORDERED: PENDING SANTYL ORDER FOR WOUND CARE XX PRN (11:00)
[2019-02-28] MEDS ORDERED: MAGNESIUM SULFATE 2 GM/50 ML 50 ML IVPB ONE (11:00)
--- NOTE | 2019-02-28 14:30 | PREAC ---
Date/Time of Note Date/Time of Note DATE: 02/28/19 TIME: 14:22 Anesthesia Eval and Record Evaluation Time Pre-Procedure Interview DATE: 02/28/19 TIME: 14:22 Age 78 Sex female NPO: 8 hrs Preoperative diagnosis left hip fracture (fell 2 months ago) Planned procedure left hip IM nailing Past Medical History Past Medical History: Includes Cardio: HTN, Dyslipidemia, CHF (elevated BNPs, acute on chronic CHF, EF 65%), Other (on admission, chest pain, NEGATIVE troponins) Neuro: Other (dementia. acute metabolic encephalopathy. ) Musculoskeletal: Other (left hip fracture from a fall 2 months ago) Surgery & Anesthesia Issues No known issue (no issues according to son) Meds Anticoagulation: Yes (ASA NV given today) Beta Jayden within 24 hr: Yes Reported Medications Aripiprazole (Aripiprazole) 5 Mg Tablet, 1 TAB ORAL DAILY 02/27/19 Escitalopram Oxalate* (Escitalopram Oxalate*) 10 Mg Tablet, 1 TAB ORAL QHS 02/27/19 Furosemide* (Furosemide*) 20 Mg Tablet, 1 TAB ORAL DAILY 02/27/19 Atenolol* (Atenolol*) 50 Mg Tablet, 1 TAB ORAL DAILY 02/27/19 Baclofen* (Baclofen*) 10 Mg Tablet, 1 TAB ORAL BID PRN for MUSCLE SPASMS 02/27/19 Hydrochlorothiazide (Hydrochlorothiazide) 12.5 Mg Capsule, 1 CAP ORAL DAILY 02/27/19 Quetiapine Fumarate* (Quetiapine Fumarate*) 50 Mg Tablet, 50 MG PO HS, TAB 02/27/19 Ibuprofen* (Ibuprofen*) 800 Mg Tablet, 1 TAB ORAL Q8 02/27/19 Tramadol HCl (Tramadol HCl) 50 Mg Tablet, 1 TAB ORAL Q12 02/27/19 Current Medications Aripiprazole (Abilify) 5 mg DAILY PO ; Start 02/28/19 at 09:00 Atenolol (Tenormin) 50 mg DAILY PO ; Start 02/28/19 at 09:00 Escitalopram Oxalate (Lexapro) 10 mg QHS PO Last administered on 02/27/19at 23:01; Admin Dose 10 MG; Start 02/27/19 at 21:00 Tramadol HCl (Ultram) 50 mg Q8H PRN PO PAIN LEVEL 4-6; Start 02/27/19 at 18:30 Quetiapine Fumarate (Seroquel) 50 mg HS PO Last administered on 02/27/19at 23:01; Admin Dose 50 MG; Start 02/27/19 at 21:00 IV Flush (NS 3 ml) 3 ml PER PROTOCOL IV ; Start 02/27/19 at 18:30 Ondansetron HCl (Zofran Inj) 4 mg Q6H PRN IV NAUSEA/VOMITING; Start 02/27/19 at 18:30 Nitroglycerin (Nitroglycerin (Sl Tab) 0.4 Mg) 1 tab Q5M PRN SL .CHEST PAIN; Start 02/27/19 at 18:30 Acetaminophen (Tylenol Tab) 650 mg Q6H PRN PO .PAIN 1-3 OR TEMP; Start 02/27/19 at 18:30 Docusate Sodium (Colace) 100 mg Q12H PRN PO .CONSTIPATION; Start 02/27/19 at 18:30 Magnesium Hydroxide (Milk Of Mag) 30 ml DAILY PRN PO .CONSTIPATION; Start 02/27/19 at 18:30 Famotidine (Pepcid) 20 mg DAILY PO Last administered on 02/27/19at 23:03; Admin Dose 20 MG; Start 02/27/19 at 21:00 Enoxaparin Sodium (Lovenox) 40 mg DAILY SC ; Start 02/28/19 at 09:00 Potassium Chloride 100 ml @ 50 mls/hr Q2H IVPB Last administered on 02/28/19at 13:31; Admin Dose 50 MLS/HR; Start 02/28/19 at 09:00; Stop 02/28/19 at 14:59 Potassium Chloride/Dextrose/ Sod Cl 1,000 ml @ 40 mls/hr Q24H IV Last administered on 02/28/19at 10:28; Admin Dose 40 MLS/HR; Start 02/28/19 at 09:30 Miscellaneous Information (Pending Santyl Order For Wound Care) This patient briones... PRN PRN XX WOUND CARE; Start 02/28/19 at 11:00 Meds reviewed: Yes Allergies Coded Allergies: No Known Allergy (Unverified , 02/27/19) Allergies Reviewed: Yes Labs/Studies Labs Reviewed: Other (K 2.9 this am, KCL repleted by primary team, will recheck K before surgery-already ordered, Dr Tayefeh aware. ) Result Diagram: 02/28/19 0503 02/28/19 0503 Laboratory Tests 02/28/19 05:03 test: N/A Studies: ECG (NSR nonspecific T wave abn), CXR (no acute disease ) Pre-procedure Exam Last vitals Vital Signs Date Temp Pulse Resp B/P (MAP) Pulse Ox O2 O2 Flow FiO2 Time Delivery Rate 02/28/19 83 12:26 02/28/19 99.2 20 136/65 93 11:08 (88) 02/28/19 Room Air 00:55 Airway: Adequate mouth opening (unable to assess, dementi), Adequate thyromental dist (unable to assess, dementia ) Mallampati: Mallampati I (unable to assess, dementia) Teeth: Abnormal (unable to assess, dementia ) Lung: Normal Heart: Normal ASA Physical Status ASA physical status: 3 Emergency: None Planned Anesthetic General/MAC: LMA Neuraxial: Spinal Nerve block: Femoral, Other (fascia iliaca, left ) Planned Pain Management Sub-arachniod narcotics, Single shot nerve block, Parenteral pain med, Local by surgeon Pre-operative Attestations Prior to commencing anesthesia and surgery, the patient was re-evaluated, there was verification of: *The patient's identity *The results of appropriate recent lab work and preoperative vital signs *The above evaluation not changing prior to induction *Anesthetic plan, risk benefits, alternative and complications discussed with patient/family; questions answered; patient/family understands, accepts and wishes to proceed. ANSHU MATAMOROS February 28, 2019 14:30
[2019-02-28] MEDS ORDERED: PHENYLephrine (100 MCG/ML) 10ML SYG ONE ×3 (15:40→17:00)
[2019-02-28] MEDS ORDERED: MIDAZOLAM 1 MG/ML 2 ML INJ ONE (15:40)
[2019-02-28] MEDS ORDERED: PROPOFOL 100 ML ONE (15:40)
[2019-02-28] MEDS ORDERED: ROPIVACAINE 0.5 % 30 ML VIAL ONE (15:40)
[2019-02-28] MEDS ORDERED: CEFAZOLIN 1 GM INJ ONE ×2 (15:40→19:07)
[2019-02-28] MEDS ORDERED: FENTAnyl 50 MCG/ML VIAL ONE (15:40)
--- NOTE | 2019-02-28 15:42 | HPN ---
Date/Time of Note Date/Time of Note DATE: 02/28/19 TIME: 15:41 Interval H&P Admission Note Pt. seen H&P reviewed: No system changes Patient denies fever, chills, shortness of breath, chest pain, nausea/vomiting, constipation, diarrhea, numbness, and tingling. MUSCULOSKELETAL: Left lower extremity Skin intact over thigh and hip region. There is a superficial abrasion/ulcer over the anterior tibia. There is chronic venous stasis over bilateral lower extremities. Unable to test sensation motor function accurately secondary to patient's end- stage dementia. She does spontaneously wiggle her toes. Dorsalis Pedis pulse +2, Brisk capillary refill. Compartments are soft. Calves non-tender to palpation bilaterally. DAV SUAZO MD February 28, 2019 15:42
[2019-02-28] MEDS: ACCU-CHEK XX SCH ×2 (17:00→21:00)
[2019-02-28] MEDS ORDERED: HETASTARCH 6% NACL 500 ML ONE (17:01)
[2019-02-28] MEDS ORDERED: ALBUMIN HUMAN 5% 500 ML ONE (17:01)
[2019-02-28] MEDS ORDERED: METOCLOPRAMIDE 10 MG INJ ONE (17:12)
[2019-02-28] MEDS ORDERED: ONDANSETRON 4 MG INJ ONE (17:12)
[2019-02-28] MEDS ORDERED: DEXAMETHASONE 4 MG/ML 5 ML INJ ONE (17:12)
[2019-02-28] MEDS ORDERED: POLYMYXIN/BACITRACIN 1L IRRIG ONE (17:16)
[2019-02-28] MEDS ORDERED: HYDROmorphONE 1 MG/5 ML IV SYRINGE IV PRN ×2 (17:30)
[2019-02-28] MEDS ORDERED: ACETAMINOPHEN 500 MG TAB PO PRN (17:30)
[2019-02-28] MEDS ORDERED: NALBUPHINE HCL (10 MG/1 ML) INJ IV PRN (17:30)
[2019-02-28] MEDS ORDERED: ALBUMIN HUMAN 5% 250 ML IV PRN (17:30)
[2019-02-28] MEDS ORDERED: HYDROmorphONE 0.5 MG/0.5 ML SYG IV PRN ×3 (17:30→20:00)
[2019-02-28] MEDS ORDERED: FENTAnyl 50 MCG/ML VIAL IV PRN ×2 (17:30)
[2019-02-28] MEDS ORDERED: MEPERIDINE 25 MG INJ IV PRN (17:30)
[2019-02-28] MEDS ORDERED: OXYCODONE/ACETAMINOPHEN (5/325) TAB PO PRN (17:30)
[2019-02-28] MEDS ORDERED: EPHEDrine 25 MG/5 ML SYG IV PRN (17:30)
[2019-02-28] MEDS ORDERED: hydrALAzine 20 MG INJ IV PRN (17:30)
[2019-02-28] MEDS ORDERED: NALOXONE (0.4 MG/ML) INJ IV PRN ×2 (17:30→20:00)
[2019-02-28] MEDS ORDERED: LABETALOL HCL 20MG INJ IV PRN (17:30)
[2019-02-28] MEDS ORDERED: DIPHENHYDRAMINE 50 MG INJ IV PRN ×3 (17:30→20:00)
[2019-02-28] MEDS ORDERED: morphine 2 MG INJ IV PRN ×2 (17:30)
[2019-02-28] MEDS ORDERED: ONDANSETRON 4 MG INJ IV PRN ×2 (17:30)
[2019-02-28] MEDS ORDERED: TRANEXAMIC ACID 1GM/100ML(PMX) 100 ML ONE (18:54)
--- NOTE | 2019-02-28 19:37 | PAC ---
Date/Time of Note Date/Time of Note DATE: 02/28/19 TIME: 19:36 Post-Anesthesia Notes Post-Anesthesia Note Last documented vital signs Vital Signs Date Temp Pulse Resp B/P (MAP) Pulse Ox O2 O2 Flow FiO2 Time Delivery Rate 02/28/19 83 12:26 02/28/19 99.2 54 20 136/65 93 face mask 19:38 (88) 02/28/19 Room Air 00:55 Activity: WNL Respiratory function: WNL Cardiovascular function: WNL Mental status: Baseline Pain reasonably controlled: Yes Hydration appropriate: Yes Nausea/Vomiting absent: Yes JED BHATIA MD February 28, 2019 19:37
[2019-02-28] MEDS ORDERED: NA PHOSPHATE/BIPHOS 133 ML ENEMA PR PRN (20:00)
[2019-02-28] MEDS ORDERED: SENNA/DOCUSATE NA (8.6MG/50MG) TAB PO PRN (20:00)
[2019-02-28] MEDS ORDERED: MAGNESIUM HYDROXIDE 30ML CUP PO PRN (20:00)
[2019-02-28] MEDS ORDERED: NACL 0.9% 3 ML SYG IV SCH (20:00)
[2019-02-28] MEDS ORDERED: BISACODYL 10 MG SUPP PR PRN (20:00)
[2019-02-28] MEDS ORDERED: oxyCODONE 5 MG TAB PO PRN (20:00)
--- NOTE | 2019-02-28 20:08 | CONS ---
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 Orthopedics was consulted for the intertrochanteric left hip fracture. Based on the history of the patient falling and not walking for the past 4 to 6 weeks as well as the appearance on x-ray, and the fact there are decubitus ulcers on the right greater trochanter in order to offload the left hip I am suspicious that this may be a subacute IT fracture that occurred when the patient stopped walking and beginning to mid January. The patient continues to have significant pain and is bedridden and is sustaining decubitus ulcers as a result. I am recommending to the family that she undergo intramedullary nailing of her left intertrochanteric hip fracture. I reviewed the benefits and risks. The risks include but not limited to, medical complications, anesthesia, cardiopulmonary, , DVT, nonunion, malunion, hardware failure, pain, need for revision surgery, neurovascular injury. They understood this and wished to proceed with surgery. Plan: N.p.o. Nonweightbearing left lower extremity Cardiac clearance Pain control Wound care DVT prophylaxis: SCDs. Postop patient will need Lovenox 40 mg daily x6 weeks Consultation Date/Type/Reason Admit Date/Time 02/27/19 at 0700 Date of Consultation: February 28, 2019 Reason for Consultation Left IT fracture Date/Time of Note DATE: 02/28/19 TIME: 19:59 Hx of Present Illness 78-year-old female with end-stage Alzheimer's presented to the [facility] emergency department for change in mental status. She was found to have a left intertrochanteric hip fracture. She has had multiple falls over the last several months. The beginning of January she fell and underwent a kyphoplasty at [facility]. Shortly after that the beginning of January she fell again. Per the family she did not want to walk after that. She did not have any known fracture at that time, but she was not evaluated for such as the patient was not showing any signs of pain. Orthopedics was consulted in regards to the left intertrochanteric hip fracture. Prior to her stop walking about 6 weeks ago she was walking using a walker. Could not obtain secondary to end-stage Alzheimer's Past Medical History Medical History: hypertension, other (alzheimers) Home Meds Reported Medications Aripiprazole (Aripiprazole) 5 Mg Tablet, 1 TAB ORAL DAILY 02/27/19 Escitalopram Oxalate* (Escitalopram Oxalate*) 10 Mg Tablet, 1 TAB ORAL QHS 02/27/19 Furosemide* (Furosemide*) 20 Mg Tablet, 1 TAB ORAL DAILY 02/27/19 Atenolol* (Atenolol*) 50 Mg Tablet, 1 TAB ORAL DAILY 02/27/19 Baclofen* (Baclofen*) 10 Mg Tablet, 1 TAB ORAL BID PRN for MUSCLE SPASMS 02/27/19 Hydrochlorothiazide (Hydrochlorothiazide) 12.5 Mg Capsule, 1 CAP ORAL DAILY 02/27/19 Quetiapine Fumarate* (Quetiapine Fumarate*) 50 Mg Tablet, 50 MG PO HS, TAB 02/27/19 Ibuprofen* (Ibuprofen*) 800 Mg Tablet, 1 TAB ORAL Q8 02/27/19 Tramadol HCl (Tramadol HCl) 50 Mg Tablet, 1 TAB ORAL Q12 02/27/19 Medications Current Medications Aripiprazole (Abilify) 5 mg DAILY PO ; Start 02/28/19 at 09:00 Atenolol (Tenormin) 50 mg DAILY PO ; Start 02/28/19 at 09:00 Escitalopram Oxalate (Lexapro) 10 mg QHS PO Last administered on 02/27/19at 23:01; Admin Dose 10 MG; Start 02/27/19 at 21:00 Tramadol HCl (Ultram) 50 mg Q8H PRN PO PAIN LEVEL 4-6; Start 02/27/19 at 18:30 Quetiapine Fumarate (Seroquel) 50 mg HS PO Last administered on 02/27/19at 23:01; Admin Dose 50 MG; Start 02/27/19 at 21:00 IV Flush (NS 3 ml) 3 ml PER PROTOCOL IV ; Start 02/27/19 at 18:30 Ondansetron HCl (Zofran Inj) 4 mg Q6H PRN IV NAUSEA/VOMITING; Start 02/27/19 at 18:30 Nitroglycerin (Nitroglycerin (Sl Tab) 0.4 Mg) 1 tab Q5M PRN SL .CHEST PAIN; Start 02/27/19 at 18:30 Acetaminophen (Tylenol Tab) 650 mg Q6H PRN PO .PAIN 1-3 OR TEMP; Start 02/27/19 at 18:30 Docusate Sodium (Colace) 100 mg Q12H PRN PO .CONSTIPATION; Start 02/27/19 at 18:30 Magnesium Hydroxide (Milk Of Mag) 30 ml DAILY PRN PO .CONSTIPATION; Start 02/27/19 at 18:30 Famotidine (Pepcid) 20 mg DAILY PO Last administered on 02/27/19at 23:03; Admin Dose 20 MG; Start 02/27/19 at 21:00 Enoxaparin Sodium (Lovenox) 40 mg DAILY SC ; Start 02/28/19 at 09:00 Potassium Chloride/Dextrose/ Sod Cl 1,000 ml @ 40 mls/hr Q24H IV Last administered on 02/28/19at 10:28; Admin Dose 40 MLS/HR; Start 02/28/19 at 09:30 Miscellaneous Information (Pending Santyl Order For Wound Care) This patient briones... PRN PRN XX WOUND CARE; Start 02/28/19 at 11:00 Diagnostic Test (Pha) (Accu-Chek) 1 ea Q4 XX ; Start 02/28/19 at 17:00 Hydromorphone HCl (Dilaudid) 0.2 mg PACU PRN IV MILD PAIN 1-3; Start 02/28/19 at 17:30; Stop 02/28/19 at 23:30 Hydromorphone HCl (Dilaudid) 0.4 mg PACU PRN IV MOD PAIN 4-6; Start 02/28/19 at 17:30; Stop 02/28/19 at 23:30 Fentanyl (Sublimaze) 25 mcg PACU ORDER PRN IV MILD PAIN 1-3; Start 02/28/19 at 17:30; Stop 02/28/19 at 23:30 Fentanyl (Sublimaze) 50 mcg PACU ORDER PRN IV MOD PAIN 4-6; Start 02/28/19 at 17:30; Stop 02/28/19 at 23:30 Oxycodone/ Acetaminophen (Percocet (5/ 325)) 1 tab PACU ORDER PRN PO .PAIN 1-5; Start 02/28/19 at 17:30; Stop 02/28/19 at 23:30 Ondansetron HCl (Zofran Inj) 4 mg PACU ORDER PRN IV NAUSEA/VOMITING; Start 02/28/19 at 17:30; Stop 02/28/19 at 23:30 Labetalol HCl (Labetalol) 5 mg PACU ORDER PRN IV HIGH BLOOD PRESSURE; Start 02/28/19 at 17:30; Stop 02/28/19 at 23:30 Hydralazine HCl (Apresoline) 5 mg PACU ORDER PRN IV HIGH BLOOD PRESSURE; Start 02/28/19 at 17:30; Stop 02/28/19 at 23:30 Ephedrine Sulfate 5 mg PACU ORDER PRN IV BLOOD PRESSURE SUPPORT; Start 02/28/19 at 17:30; Stop 02/28/19 at 23:30 Albumin Human 250 ml @ 750 mls/hr PACU ORDER PRN IV BP SUPPORT; Start 02/28/19 at 17:30; Stop 02/28/19 at 23:30 Meperidine HCl (Demerol) 25 mg PACU ORDER PRN IV .RIGORS; Start 02/28/19 at 17:30; Stop 02/28/19 at 23:30 Diphenhydramine HCl (Benadryl) 25 mg PACU ORDER PRN IV .PRURITUS; Start 02/28/19 at 17:30; Stop 02/28/19 at 23:30 Hydromorphone HCl (Dilaudid) 0.2 mg Q2H PRN IV .PAIN 1-5; Start 02/28/19 at 17:30; Stop 02/28/19 at 21:00 Hydromorphone HCl (Dilaudid) 0.4 mg Q2H PRN IV .PAIN 6-10; Start 02/28/19 at 17:30; Stop 02/28/19 at 21:00 Morphine Sulfate (morphine) 2 mg Q2H PRN IV .PAIN 1-5; Start 02/28/19 at 17:30; Stop 02/28/19 at 21:00 Morphine Sulfate (morphine) 4 mg Q2H PRN IV .PAIN 6-10; Start 02/28/19 at 17:30; Stop 02/28/19 at 21:00 Acetaminophen (Tylenol Tab) 500 mg Q4H PRN PO .PAIN 1-3; Start 02/28/19 at 17:30; Stop 02/28/19 at 21:00 Diphenhydramine HCl (Benadryl) 25 mg Q4H PRN IV .PRURITUS; Start 02/28/19 at 17:30; Stop 02/28/19 at 21:00 Nalbuphine HCl (Nubain) 10 mg Q4H PRN IV .PRURITUS; Start 02/28/19 at 17:30; Stop 02/28/19 at 21:00 Ondansetron HCl (Zofran Inj) 4 mg Q6H PRN IV .NAUSEA/VOMITING; Start 02/28/19 at 17:30; Stop 02/28/19 at 21:00 Naloxone HCl (Narcan) 0.2 mg Q2M PRN IV .RESP RATE; Start 02/28/19 at 17:30; Stop 02/28/19 at 21:00 Miscellaneous Information (* Miscellaneous Pharmacy Order) FENTANYL: 20 ... GIVEN NEURAXIAL XX ; Start 02/28/19 at 17:30; Stop 02/28/19 at 21:00 Allergies: Coded Allergies: No Known Allergy (Unverified , 02/27/19) Past Surgical History Kyphoplasty Past Surgical Hx: other (right hip repair) Social History Alcohol Use: none Smoking Status: Never smoker Drug Use: none Exam/Review of Systems Exam Vitals Vital Signs Date Temp Pulse Resp B/P (MAP) Pulse Ox O2 O2 Flow FiO2 Time Delivery Rate 02/28/19 Simple 8.0 19:53 Mask 02/28/19 99.0 19:34 02/28/19 83 12:26 02/28/19 20 136/65 93 11:08 (88) Exam General: Awake, alert, in no acute distress, pleasant and cooperative Heart: regular rhythm Lungs: breathing comfortably, no tachypnea or dyspnea MUSCULOSKELETAL: Left lower extremity: The skin is intact over the thigh and hip area. There is a wound over the anterior tibia and a large serous blister over the heel. The extremity is shortened and externally rotated. Movement of the extremity does cause the patient pain. Not able to test sensation and motor accurately secondary to patient's inability to follow commands. She does spontaneously wiggle her toes. Dorsalis Pedis pulse +2, Brisk capillary refill. Compartments are soft. Calves non-tender to palpation bilaterally. Bilateral venous stasis. On the right lower extremity there is a decubitus ulcer stage II over the greater trochanter Results Result Diagram: 02/28/19 0503 02/28/19 1420 Results 24hrs Laboratory Tests Test 02/28/19 00:45 02/28/19 05:03 02/28/19 14:20 Creatine Kinase 593 H Creatine Kinase Index 1.4 Creatinine Kinase MB (Mass) 8.21 H Troponin I < 0.012 White Blood Count 9.8 # Red Blood Count 3.46 #L Hemoglobin 9.7 #L Hematocrit 30.0 #L Mean Corpuscular Volume 86.7 Mean Corpuscular Hemoglobin 28.0 L Mean Corpuscular Hemoglobin Concent 32.3 Red Cell Distribution Width 13.1 Platelet Count 325 # Mean Platelet Volume 10.9 H Immature Granulocytes % 0.400 Neutrophils % 66.6 Lymphocytes % 21.4 Monocytes % 9.0 Eosinophils % 2.3 Basophils % 0.3 Nucleated Red Blood Cells % 0.0 Immature Granulocytes # 0.040 H Neutrophils # 6.5 Lymphocytes # 2.1 Monocytes # 0.9 Eosinophils # 0.2 Basophils # 0.0 Nucleated Red Blood Cells # 0.0 Sodium Level 137 Potassium Level 2.9 *L 3.8 Chloride Level 104 Carbon Dioxide Level 29 Anion Gap 4 L Blood Urea Nitrogen 30 H Creatinine 0.61 Est Glomerular Filtrat Rate mL/min Glucose Level 81 # Calcium Level 7.5 L Magnesium Level 1.9 Imaging Imaging AP pelvis and AP and lateral of the left femur demonstrate a displaced intertrochanteric hip fracture. There are some subtle signs that this may be a subacute fracture. No obvious callus formation Medications Medication Current Medications Aripiprazole (Abilify) 5 mg DAILY PO ; Start 02/28/19 at 09:00 Atenolol (Tenormin) 50 mg DAILY PO ; Start 02/28/19 at 09:00 Escitalopram Oxalate (Lexapro) 10 mg QHS PO Last administered on 02/27/19at 23:01; Admin Dose 10 MG; Start 02/27/19 at 21:00 Tramadol HCl (Ultram) 50 mg Q8H PRN PO PAIN LEVEL 4-6; Start 02/27/19 at 18:30 Quetiapine Fumarate (Seroquel) 50 mg HS PO Last administered on 02/27/19at 23:01; Admin Dose 50 MG; Start 02/27/19 at 21:00 IV Flush (NS 3 ml) 3 ml PER PROTOCOL IV ; Start 02/27/19 at 18:30 Ondansetron HCl (Zofran Inj) 4 mg Q6H PRN IV NAUSEA/VOMITING; Start 02/27/19 at 18:30 Nitroglycerin (Nitroglycerin (Sl Tab) 0.4 Mg) 1 tab Q5M PRN SL .CHEST PAIN; Start 02/27/19 at 18:30 Acetaminophen (Tylenol Tab) 650 mg Q6H PRN PO .PAIN 1-3 OR TEMP; Start 02/27/19 at 18:30 Docusate Sodium (Colace) 100 mg Q12H PRN PO .CONSTIPATION; Start 02/27/19 at 18:30 Magnesium Hydroxide (Milk Of Mag) 30 ml DAILY PRN PO .CONSTIPATION; Start 02/27/19 at 18:30 Famotidine (Pepcid) 20 mg DAILY PO Last administered on 02/27/19at 23:03; Admin Dose 20 MG; Start 02/27/19 at 21:00 Enoxaparin Sodium (Lovenox) 40 mg DAILY SC ; Start 02/28/19 at 09:00 Potassium Chloride/Dextrose/ Sod Cl 1,000 ml @ 40 mls/hr Q24H IV Last administ ered on 02/28/19at 10:28; Admin Dose 40 MLS/HR; Start 02/28/19 at 09:30 [facility] This patient briones... PRN PRN XX WOUND CARE; Start 02/28/19 at 11:00 Diagnostic Test (Pha) (Accu-Chek) 1 ea Q4 XX ; Start 02/28/19 at 17:00 Hydromorphone HCl (Dilaudid) 0.2 mg PACU PRN IV MILD PAIN 1-3; Start 02/28/19 at 17:30; Stop 02/28/19 at 23:30 Hydromorphone HCl (Dilaudid) 0.4 mg PACU PRN IV MOD PAIN 4-6; Start 02/28/19 at 17:30; Stop 02/28/19 at 23:30 Fentanyl (Sublimaze) 25 mcg PACU ORDER PRN IV MILD PAIN 1-3; Start 02/28/19 at 17:30; Stop 02/28/19 at 23:30 Fentanyl (Sublimaze) 50 mcg PACU ORDER PRN IV MOD PAIN 4-6; Start 02/28/19 at 17:30; Stop 02/28/19 at 23:30 Oxycodone/ Acetaminophen (Percocet (5/ 325)) 1 tab PACU ORDER PRN PO .PAIN 1-5; Start 02/28/19 at 17:30; Stop 02/28/19 at 23:30 Ondansetron HCl (Zofran Inj) 4 mg PACU ORDER PRN IV NAUSEA/VOMITING; Start 02/28/19 at 17:30; Stop 02/28/19 at 23:30 Labetalol HCl (Labetalol) 5 mg PACU ORDER PRN IV HIGH BLOOD PRESSURE; Start 02/28/19 at 17:30; Stop 02/28/19 at 23:30 Hydralazine HCl (Apresoline) 5 mg PACU ORDER PRN IV HIGH BLOOD PRESSURE; Start 02/28/19 at 17:30; Stop 02/28/19 at 23:30 Ephedrine Sulfate 5 mg PACU ORDER PRN IV BLOOD PRESSURE SUPPORT; Start 02/28/19 at 17:30; Stop 02/28/19 at 23:30 Albumin Human 250 ml @ 750 mls/hr PACU ORDER PRN IV BP SUPPORT; Start 02/28/19 at 17:30; Stop 02/28/19 at 23:30 Meperidine HCl (Demerol) 25 mg PACU ORDER PRN IV .RIGORS; Start 02/28/19 at 17: 30; Stop 02/28/19 at 23:30 Diphenhydramine HCl (Benadryl) 25 mg PACU ORDER PRN IV .PRURITUS; Start 02/28/19 at 17:30; Stop 02/28/19 at 23:30 Hydromorphone HCl (Dilaudid) 0.2 mg Q2H PRN IV .PAIN 1-5; Start 02/28/19 at 17:30; Stop 02/28/19 at 21:00 Hydromorphone HCl (Dilaudid) 0.4 mg Q2H PRN IV .PAIN 6-10; Start 02/28/19 at 17:30; Stop 02/28/19 at 21:00 Morphine Sulfate (morphine) 2 mg Q2H PRN IV .PAIN 1-5; Start 02/28/19 at 17:30; Stop 02/28/19 at 21:00 Morphine Sulfate (morphine) 4 mg Q2H PRN IV .PAIN 6-10; Start 02/28/19 at 17:30; Stop 02/28/19 at 21:00 Acetaminophen (Tylenol Tab) 500 mg Q4H PRN PO .PAIN 1-3; Start 02/28/19 at 17:30; Stop 02/28/19 at 21:00 Diphenhydramine HCl (Benadryl) 25 mg Q4H PRN IV .PRURITUS; Start 02/28/19 at 17:30; Stop 02/28/19 at 21:00 Nalbuphine HCl (Nubain) 10 mg Q4H PRN IV .PRURITUS; Start 02/28/19 at 17:30; Stop 02/28/19 at 21:00 Ondansetron HCl (Zofran Inj) 4 mg Q6H PRN IV .NAUSEA/VOMITING; Start 02/28/19 at 17:30; Stop 02/28/19 at 21:00 Naloxone HCl (Narcan) 0.2 mg Q2M PRN IV .RESP RATE; Start 02/28/19 at 17:30; Stop 02/28/19 at 21:00 Miscellaneous Information (* Miscellaneous Pharmacy Order) FENTANYL: 20 ... GIVEN NEURAXIAL XX ; Start 02/28/19 at 17:30; Stop 02/28/19 at 21:00 DAV SUAZO MD February 28, 2019 20:08
--- NOTE | 2019-02-28 20:20 | OPR ---
Date/Time of Note Date/Time of Note DATE: 02/28/19 TIME: 20:09 Operative Report Procedure Date: February 28, 2019 Preoperative Diagnosis Left intertrochanteric hip fracture Postoperative Diagnosis Subacute left intertrochanteric hip fracture Operation/Procedure Performed Percutaneous reduction of left intratrochanteric hip fracture Intramedullary nail of left intertrochanteric hip fracture Modifier 22 secondary to significantly increased complexity requiring 50% more time and effort. This was secondary to the fracture not being acute and being 6 weeks old. Reduction and fixation required additional techniques, equipment, and time. Surgeon see signature line Patient Advocate None Anesthesia Type: general, spinal Estimated Blood Loss: 250 - 300 ml's Transfusion none Specimen None Grafts/Implants Implants [place] gamma cephalo-medullary nail size 11 x 360, 125 degree angle 85 mm lag screw 40 mm distal interlocking screws Complications none Pt Condition Post Procedure: stable Procedure Description Procedure IT fracture indications and consent: This is a 78-year-old woman with end-stage Alzheimer's and hypertension who presented to the emergency department for altered mental status and was found to have a left hip fracture. Discussing the history with the family I was highly suspicious that this may be a subacute fracture and not an acute fracture. The patient stopped walking about 4 to 6 weeks ago. She has had multiple falls prior to this. Secondary to her end-stage Alzheimer's she is not able to communicate her pain appropriately. Orthopedics was consulted. Preoperative clearance process was begun. I discussed treatment options with the patient. I recommended surgical treatment as nonoperative treatment would leave the patient bed bound. I reviewed the benefits and risks. The risks include but not limited to medical complications, cardiopulmonary complications, anesthetic complications, bleeding, infection, nonunion, malunion, hardware failure, continued pain, need for further surgery, need for removal of hardware, neurovascular injury. The patient understood these benefits and risks and wished to proceed with surgery. Procedure in detail: Patient was brought to the operating room. The patient was given a spinal anesthetic and placed in supine position on the [place] table. All bony prominences were well-padded. Patient was appropriately positioned and put in traction on the left lower extremity. At this time fluoroscopy was used to confirm positioning as well as reduction of left intertrochanteric hip fracture. The fracture could not be reduced. It was 100% displaced on the lateral view and closed reduction with traction is not adequate. At this time the left lower extremity was prepped and draped in normal sterile fashion. A timeout was performed confirming the patient's name, medical record number, diagnosis, procedure performed, and laterality procedure. 2 g of Ancef was dosed. Fluoroscopy was used to localize the tip of greater trochanter and obtain the longitudinal axis of the femur. A #10 blade was used to make a skin incision several centimeters proximal and posterior to the tip of the greater trochanter. IT band was sharply incised. Tip of the greater trochanter could be palpated. The guidepin was then placed on the tip of the greater trochanter. Placement was confirmed on both AP and lateral fluoroscopy. The pin was then driven down with a wire tour driver just past the lesser trochanter. Soft tissue guide was placed over the guidepin followed by the opening reamer. This was then removed. A ball-tipped guidewire with a bend was placed into the opening hole. The guide wire was confirmed to be in the femur on both AP and lateral films. It was placed in the center of the femur distally in both the AP and lateral planes. This was measured at approximately 385 mm, a 360 mm length nail was chosen. The canal was quite capacious began reaming with a 9 mm reamer and sequentially reamed up to a 13 mm reamer where there was appropriate chatter at the isthmus. Therefore a 11 x 360 mm nail with 125 degree angle was chosen. This was then placed over the guidewire until the proper depth was obtained in the guidewire was then pulled out. A small 2 cm incision was made over the location of the future lag screw. Further attempts to reduce the fracture were made at this time as a lag screw would not be able to enter the neck on the lateral view. Indirect methods such as further adjustments with traction including adduction and rotation and using a mallet for direct pressure failed. Therefore fluoroscopy was used to locate the anterior aspect of the neck. A small longitudinal 2 cm incision was made directly over this spot. Blunt dissection was used to reach the femoral neck. This was palpated with a long tonsil. At this time a trocar with a sharp tip for traction was carefully placed over the anterior aspect of the neck. Pushing down and increasing traction reduced the fracture in both the lateral and AP. The lag screw sleeve was placed through the jig and a guidepin was placed center center in the femoral head which was confirmed on both AP and lateral fluoroscopy. The pin was driven to the subchondral bone. This measured 95 mm but was off bone. Therefore reamed to 90 mm and placed 85 mm screw. The lag screw was then put in compression mode. The fracture reduced and compressed very nicely on fluoroscopy. The set screw was then tightened all the way down. The screw was center center in the femoral head on both AP and lateral films. Our attention turned distally the distal interlocking screw jig was used. The static interlocking screw hole was used. Appropriate drill was used to drill through these holes. All jigs and hardware was removed and final x-rays were obtained confirming good reduction of the fracture and positioning placement of the hardware. At this time all wounds were closely irrigated. The IT band was closed with #0 Vicryl in [id number] fashion followed by subcutaneous closure and khoa for the skin. The lag screw and interlocking screw incisions were closed with 2-0 Vicryl and skin for khoa. The dressings were covered with Mepilex dressing. All counts were correct x2 Disposition: Patient was awoken from anesthesia and transferred back in stable condition. Patient will be weight-bear as tolerated in the left lower extremity. Will rece kelli Ancef 2 g for 24 hours postop. The patient will be on DVT prophylaxis, lovenox 40mg daily x6 weeks and SCDs while admitted. I would like to see the patient in clinic in 2 weeks. Implants [place] gamma cephalo-medullary nail size 11 x 360, 125 degree angle 85 mm lag screw 40 mm distal interlocking screws DAV SUAZO MD February 28, 2019 20:20
[2019-02-28] MEDS ORDERED: DOCUSATE SODIUM 100 MG CAP PO ONE (20:30)
[2019-02-28] MEDS: LACTATED RINGER'S 1,000 ML IV SCH (20:30)
[2019-02-28] MEDS: ESCITALOPRAM 10 MG TAB PO SCH (21:40)
[2019-02-28] MEDS: QUETIAPINE 25 MG TAB PO SCH (21:44)
[2019-02-28] MEDS: BALSAM PERU/CASTOR OIL 60 GM TUBE TOP SCH (21:44)
[2019-02-28] MEDS: CEFAZOLIN 2 GM/50 ML (PMX) 50 ML IVPB SCH (21:45)
[2019-02-28] MEDS: ACETAMINOPHEN 500 MG TAB PO SCH (23:00)
[2019-03-01] VITALS (12 sets, daily range): BP systolic 82–157; BP diastolic 56–78; PULSE 51–72; RESP 18–20
[2019-03-01] MEDS: ACCU-CHEK XX SCH ×4 (01:00→21:02)
[2019-03-01] MEDS: PANTOPRAZOLE (EC) 40 MG TAB PO SCH (05:54)
[2019-03-01] MEDS: CEFAZOLIN 2 GM/50 ML (PMX) 50 ML IVPB SCH ×2 (05:54→13:35)
[2019-03-01] MEDS: ACETAMINOPHEN 500 MG TAB PO SCH ×3 (05:55→22:00)
--- NOTE | 2019-03-01 08:13 | CONS ---
Consult Date/Type/Reason Admit Date/Time February 27, 2019 at 17:40 Initial Consult Date 02/28/19 Requesting Provider: VIRI STOKSE MD Date/Time of Note DATE: 03/01/19 TIME: 08:11 Subjective Interventional cardiology follow-up progress note Subjective: Discussed with staff telemetry was reviewed. Discussed with Dr. Garvin Patient status post orthopedic surgery March 01, 2019. No cardiac complications reported patient does not question though but appears to be more awake and more responsive. Objective: General: no acute distress HEENT: NC/AT. pupils are equal. round. NECK: NO JVD. no stridor. CV: RRR. systolic murmur; no gallop or rubs. PULM: no wheezing or rhonchi. GI: SOFT, NT, ND, no rebound or guarding Extremity: trace B/L LE edema. no clubbing. neuro: awake oriented x1 Psych: calm rectal: deferred Echocardiogram was personally reviewed which shows: ormal left ventricular systolic function. Normal left ventricular cavity size. Mild concentric left ventricular hypertrophy. Ejection fraction is visually estimated at 65 %. Tissue Doppler/Mitral Doppler indices are consistent with impaired relaxation (Stage I diastolic dysfunction). Mitral valve leaflets appear mildly thickened. Mild mitral annular calcification. Trace mitral regurgitation. Aortic valve Max velocity 2.18 m/sec. Max PG 19.00 mmHg. Mean PG 11.00 mmHg. Aortic valve area 2.80 cm2. Aortic sclerosis without significant stenosis. Trace aortic valve regurgitation. Normal appearance of the tricuspid valve. The estimated Peak RVSP is 16 mmHg. There is trace tricuspid regurgitation. Objective Vitals Vital Signs Date Temp Pulse Resp B/P (MAP) Pulse Ox O2 O2 Flow FiO2 Time Delivery Rate 03/01/19 97.4 51 20 157/67 98 07:12 (97) 02/28/19 Nasal 3.0 20:30 Cannula Intake and Output 02/28/19 02/28/19 03/01/19 1515:00 23:00 07:00 IntakeIntake Total 250 ml 500 ml OutputOutput Total 2350 ml BalanceBalance 250 ml -1850 ml Results/Medications Result Diagram: 03/01/19 0520 03/01/19 0520 Results 24 hrs Laboratory Tests Test 02/28/19 14:20 02/28/19 21:14 03/01/19 04:45 03/01/19 05:20 Potassium Level 3.8 3.8 Bedside Glucose 85 121 White Blood Count 8.9 Red Blood Count 3.12 L Hemoglobin 8.7 L Hematocrit 27.5 L Mean Corpuscular 88.1 Volume Mean Corpuscular 27.9 L Hemoglobin Mean Corpuscular 31.6 L Hemoglobin Concent Red Cell 13.2 Distribution Width Platelet Count 293 Mean Platelet Volume 10.9 H Immature 0.600 H Granulocytes % Neutrophils % 86.8 H Lymphocytes % 8.6 L Monocytes % 4.0 Eosinophils % 0.0 Basophils % 0.0 Nucleated Red Blood 0.0 Cells % Immature 0.050 H Granulocytes # Neutrophils # 7.7 H Lymphocytes # 0.8 Monocytes # 0.4 Eosinophils # 0.0 Basophils # 0.0 Nucleated Red Blood 0.0 Cells # Prothrombin Time 15.2 H Prothrombin Time 1.2 Ratio INR International 1.19 Normalized Ratio Sodium Level 141 Chloride Level 109 Carbon Dioxide Level 26 Anion Gap 6 Blood Urea Nitrogen 19 # Creatinine 0.48 Est Glomerular Filtrat Rate mL/min Glucose Level 103 Calcium Level 7.4 L Magnesium Level 2.0 Total Bilirubin 0.6 Direct Bilirubin 0.00 Indirect Bilirubin 0.6 Aspartate Amino 59 H Transf (AST/SGOT) Alanine 44 Aminotransferase (AL T/SGPT) Alkaline Phosphatase 105 Total Protein 4.8 #L Albumin 2.5 #L Globulin 2.30 Albumin/Globulin 1.08 Ratio Home Meds Reported Medications Aripiprazole (Aripiprazole) 5 Mg Tablet, 1 TAB ORAL DAILY 02/27/19 Escitalopram Oxalate* (Escitalopram Oxalate*) 10 Mg Tablet, 1 TAB ORAL QHS 02/27/19 Furosemide* (Furosemide*) 20 Mg Tablet, 1 TAB ORAL DAILY 02/27/19 Atenolol* (Atenolol*) 50 Mg Tablet, 1 TAB ORAL DAILY 02/27/19 Baclofen* (Baclofen*) 10 Mg Tablet, 1 TAB ORAL BID PRN for MUSCLE SPASMS 02/27/19 Hydrochlorothiazide (Hydrochlorothiazide) 12.5 Mg Capsule, 1 CAP ORAL DAILY 02/27/19 Quetiapine Fumarate* (Quetiapine Fumarate*) 50 Mg Tablet, 50 MG PO HS, TAB 02/27/19 Ibuprofen* (Ibuprofen*) 800 Mg Tablet, 1 TAB ORAL Q8 02/27/19 Tramadol HCl (Tramadol HCl) 50 Mg Tablet, 1 TAB ORAL Q12 02/27/19 Medications Current Medications Aripiprazole (Abilify) 5 mg DAILY PO ; Start 02/28/19 at 09:00 Atenolol (Tenormin) 50 mg DAILY PO ; Start 02/28/19 at 09:00 Escitalopram Oxalate (Lexapro) 10 mg QHS PO Last administered on 02/28/19at 21:40; Admin Dose 10 MG; Start 02/27/19 at 21:00 Tramadol HCl (Ultram) 50 mg Q8H PRN PO PAIN LEVEL 4-6; Start 02/27/19 at 18:30 Quetiapine Fumarate (Seroquel) 50 mg HS PO Last administered on 02/28/19at 21:44; Admin Dose 50 MG; Start 02/27/19 at 21:00 IV Flush (NS 3 ml) 3 ml PER PROTOCOL IV ; Start 02/27/19 at 18:30 Ondansetron HCl (Zofran Inj) 4 mg Q6H PRN IV NAUSEA/VOMITING; Start 02/27/19 at 18:30 Nitroglycerin (Nitroglycerin (Sl Tab) 0.4 Mg) 1 tab Q5M PRN SL .CHEST PAIN; Start 02/27/19 at 18:30 Acetaminophen (Tylenol Tab) 650 mg Q6H PRN PO .PAIN 1-3 OR TEMP; Start 02/27/19 at 18:30 Docusate Sodium (Colace) 100 mg Q12H PRN PO .CONSTIPATION; Start 02/27/19 at 18:30 Magnesium Hydroxide (Milk Of Mag) 30 ml DAILY PRN PO .CONSTIPATION; Start 02/27/19 at 18:30 Famotidine (Pepcid) 20 mg DAILY PO Last administered on 02/27/19at 23:03; Admin Dose 20 MG; Start 02/27/19 at 21:00 Enoxaparin Sodium (Lovenox) 40 mg DAILY SC ; Start 02/28/19 at 09:00 Potassium Chloride/Dextrose/ Sod Cl 1,000 ml @ 40 mls/hr Q24H IV Last administered on 02/28/19at 10:28; Admin Dose 40 MLS/HR; Start 02/28/19 at 09:30 Miscellaneous Information (Pending Santyl Order For Wound Care) This patient briones... PRN PRN XX WOUND CARE; Start 02/28/19 at 11:00 Diagnostic Test (Pha) (Accu-Chek) 1 ea Q4 XX Last administered on 03/01/19at 04:47; Admin Dose 1 EA; Start 02/28/19 at 17:00 Lactated Ringer's 1,000 ml @ 80 mls/hr [id number] IV Last administered on 02/28/19at 20:30; Admin Dose 80 MLS/HR; Start 02/28/19 at 20:30 Oxycodone HCl (Roxicodone) 10 mg Q4H PRN PO pain 6-10; Start 02/28/19 at 20:00 Oxycodone HCl (Roxicodone) 5 mg Q4H PRN PO .PAIN; Start 02/28/19 at 20:00 Hydromorphone HCl (Dilaudid) 0.5 mg Q3H PRN IV .BREAKTHROUGH PAIN; Start 02/28/19 at 20:00 Acetaminophen (Tylenol Tab) 1,000 mg Q8 PO Last administered on 03/01/19at 05:55; Admin Dose 1,000 MG; Start 02/28/19 at 22:00 Ondansetron HCl (Zofran Inj) 4 mg Q4H PRN IV NAUSEA/VOMITING; Start 03/01/19 at 20:00 Cefazolin Sodium/ Dextrose 50 ml @ 100 mls/hr Q8H IVPB Last administered on 03/01/19at 05:54; Admin Dose 100 MLS/HR; Start 02/28/19 at 22:00; Stop 03/01/19 at 14:29 Pantoprazole (Protonix Tab) 40 mg DAILY@06 PO Last administered on 03/01/19at 05:54; Admin Dose 40 MG; Start 03/01/19 at 06:00 Docusate Sodium (Colace) 200 mg BID PO ; Start 03/01/19 at 09:00; Stop 03/03/19 at 21:01 Simethicone (Mylicon) 80 mg TID PRN PO .GAS; Start 02/28/19 at 20:00 Senna/Docusate Sodium (Senokot-S) 2 tab BID PRN PO .CONSTIPATION; Start 02/28/19 at 20:00 Magnesium Hydroxide (Milk Of Mag) 30 ml HS PRN PO .CONSTIPATION; Start 02/28/19 at 20:00 Bisacodyl (Dulcolax Supp) 10 mg DAILY PRN [place] .CONSTIPATION; Start 02/28/19 at 20:00 Sodium Biphosphate/ Sodium Phosphate (Fleet Enema) 133 ml DAILY PRN [place] .CONSTIPATION; Start 02/28/19 at 20:00 Diphenhydramine HCl (Benadryl) 25 mg Q4H PRN IV .ITCHING; Start 02/28/19 at 20:00 Naloxone HCl (Narcan) 0.2 mg Q2M PRN IV .RESP RATE; Start 02/28/19 at 20:00 IV Flush (NS 3 ml) 3 ml per protocol IV ; Start 02/28/19 at 20:00 Enoxaparin Sodium (Lovenox) 40 mg DAILY SC ; Start 03/02/19 at 09:00 Assessment/Plan Hospital Course (Demo Recall) Cardiovascular preop evaluation Hip fracture : Status post hip surgery Hypertension Aortic valve disorder Dementia Encephalopathy Hypokalemia Elevated BNP level. Clinically does not appear to be in decompensated heart failure though Recommendations: Her potassium has been replaced now. OFF the Lasix We will replace electrolytes as needed Continue the beta-william as tolerated POST OP CARE and DVT prophylaxis as per IM/ ortho rec Thank you for his referral we will continue to follow along with SADE DEMPSEY MD [facility] SADE DEMPSEY MD March 01, 2019 08:13
--- NOTE | 2019-03-01 08:19 | PN ---
Date/Time of Note Date/Time of Note DATE: 03/01/19 TIME: 08:17 Assessment/Plan Lines/Catheters IV Catheter Type (from Nrsg): Peripheral IV Feliciano in Place (from Nrsg): Yes Assessment/Plan Chief Complaint/Hosp Course POD#1 s/p left IM nail of subacute IT fracture -Post op H&H, continue to follow -PT/OT. -Joints pain control protocol -DVT prophylaxis: SCD's, 40 mg enoxaparin daily starting tomorrow x6 weeks -Weight bearing status: as tolerated -Post-op XR ordered -Abx: 24h vanc/ancef -Diet: ADAT -Feliciano: DC today versus tomorrow -Discharge planning consult Recommend discharge to SNF when medically stable Subjective 24 Hr Interval Summary Patient doing well No acute events overnight Pain is well controlled Exam/Review of Systems Vital Signs Vitals Vital Signs Date Temp Pulse Resp B/P (MAP) Pulse Ox O2 O2 Flow FiO2 Time Delivery Rate 03/01/19 97.4 51 20 157/67 98 07:12 (97) 02/28/19 Nasal 3.0 20:30 Cannula Intake and Output 02/28/19 02/28/19 03/01/19 1515:00 23:00 07:00 IntakeIntake Total 250 ml 500 ml OutputOutput Total 2350 ml BalanceBalance 250 ml -1850 ml Exam Free Text/Dictation Left lower extremity: Dressing: clean, dry, and intact, no erythema Spontaneously wiggles toes. Dorsalis Pedis pulse +2, Brisk capillary refill. Compartments are soft. Calves non-tender to palpation bilaterally. Results Result Diagram: 03/01/19 0520 03/01/19 0520 DAV SUAZO MD March 01, 2019 08:19
[2019-03-01] MEDS: ATENOLOL 50 MG TAB PO SCH (09:00)
[2019-03-01] MEDS: ENOXAPARIN 40 MG/0.4 ML SYG SC SCH (09:00)
[2019-03-01] MEDS: LACTATED RINGER'S 1,000 ML IV SCH (09:00)
[2019-03-01] MEDS: DOCUSATE SODIUM 100 MG CAP PO SCH ×2 (09:15→20:58)
[2019-03-01] MEDS: FAMOTIDINE 20 MG TAB PO SCH (09:17)
[2019-03-01] MEDS: ARIPIPRAZOLE 5 MG TAB PO SCH (09:17)
[2019-03-01] MEDS: BALSAM PERU/CASTOR OIL 60 GM TUBE TOP SCH ×2 (09:18→21:02)
[2019-03-01] MEDS: D5W-0.45 NACL + KCL 20 MEQ 1,000 ML IV SCH (09:18)
--- NOTE | 2019-03-01 11:33 | PN ---
Date/Time of Note Date/Time of Note DATE: 03/01/19 TIME: 11:33 Assessment/Plan VTE Prophylaxis Risk score (from Nsg)>0 risk: 12 SCD applied (from Nsg): Yes Pharmacological prophylaxis: heparin Lines/Catheters IV Catheter Type (from Nrsg): Peripheral IV Urinary Cath still in place: Yes Reason Cath still needed: terminal illness/intractable pain Assessment/Plan Assessment/Plan 1. Left hip fracture s/p mechanical fall - Ortho on board and appreciate consultation. s/p Intramedullary nail of left intertrochanteric hip fracture 02/28 - LE dopplers negative 2. PVD - seen on arterial studies - Vascular consultation placed for further recommendations 3. Left heel ulcer - appreciate Podiatry recommendations - offloading boots - Vascular consult placed 4. Acute metabolic encephalopathy- stable - still pleasantly confused - continue monitoring for improvement 5. Dysphagia - Speech on board and appreciate recommendations. not tolerating pureed foods and best to keep NPO for now 6. Acute on chronic heart failure- stable - ECHO results noted with preserved EF - CXR negative for congestion - Cardiology consultation appreciated 7. Dementia - stable - per family, was able to feed self and ambulate to bathroom prior to fall 8. Disposition - Vascular consultation placed for further recommendations - Continue PT for discharge planning Result Diagram: 03/01/19 0520 03/01/19 0520 Results 24hrs Laboratory Tests Test 02/28/19 14:20 02/28/19 21:14 03/01/19 04:45 03/01/19 05:20 Potassium Level 3.8 3.8 Bedside Glucose 85 121 White Blood Count 8.9 Red Blood Count 3.12 L Hemoglobin 8.7 L Hematocrit 27.5 L Mean Corpuscular 88.1 Volume Mean Corpuscular 27.9 L Hemoglobin Mean Corpuscular 31.6 L Hemoglobin Concent Red Cell 13.2 Distribution Width Platelet Count 293 Mean Platelet Volume 10.9 H Immature 0.600 H Granulocytes % Neutrophils % 86.8 H Lymphocytes % 8.6 L Monocytes % 4.0 Eosinophils % 0.0 Basophils % 0.0 Nucleated Red Blood 0.0 Cells % Immature 0.050 H Granulocytes # Neutrophils # 7.7 H Lymphocytes # 0.8 Monocytes # 0.4 Eosinophils # 0.0 Basophils # 0.0 Nucleated Red Blood 0.0 Cells # Prothrombin Time 15.2 H Prothrombin Time 1.2 Ratio INR International 1.19 Normalized Ratio Sodium Level 141 Chloride Level 109 Carbon Dioxide Level 26 Anion Gap 6 Blood Urea Nitrogen 19 # Creatinine 0.48 Est Glomerular Filtrat Rate mL/min Glucose Level 103 Calcium Level 7.4 L Magnesium Level 2.0 Total Bilirubin 0.6 Direct Bilirubin 0.00 Indirect Bilirubin 0.6 Aspartate Amino 59 H Transf (AST/SGOT) Alanine 44 Aminotransferase (AL T/SGPT) Alkaline Phosphatase 105 Total Protein 4.8 #L Albumin 2.5 #L Globulin 2.30 Albumin/Globulin 1.08 Ratio Subjective 24 Hr Interval Summary Free Text/Dictation Patient still pleasantly confused but blowing kisses when I walked into the room. per nursing coughing with fluids. she is also hesitating with physical therapy when being ambulated. Exam/Review of Systems Exam Vitals Vital Signs Date Temp Pulse Resp B/P (MAP) Pulse Ox O2 O2 Flow FiO2 Time Delivery Rate 03/01/19 97.4 58 20 136/60 100 11:17 (85) 02/28/19 Nasal 3.0 20:30 Cannula Intake and Output 02/28/19 02/28/19 03/01/19 1515:00 23:00 07:00 IntakeIntake Total 250 ml 500 ml OutputOutput Total 2350 ml BalanceBalance 250 ml -1850 ml Exam General: Patient is in no acute distress. pleasantly confused Neck: Supple Chest: Nontender Lungs: Clear to auscultation bilaterally, no wheezing or rhonchi Heart: Normal S1-S2, Regular rhythm and rate. No murmur, S3, or S4 Abdomen: Soft , nontender, nondistended , bowel sounds are present. No guarding no rebound tenderness Extremities: Normal to inspection, trace pitting edema LLE. no cyanosis or clubbing Skin: no rashes or lesions, dressing on LLE, CDI. Left hip dressing CDI Results Results 24hrs Laboratory Tests Test 02/28/19 14:20 02/28/19 21:14 03/01/19 04:45 03/01/19 05:20 Potassium Level 3.8 3.8 Bedside Glucose 85 121 White Blood Count 8.9 Red Blood Count 3.12 L Hemoglobin 8.7 L Hematocrit 27.5 L Mean Corpuscular 88.1 Volume Mean Corpuscular 27.9 L Hemoglobin Mean Corpuscular 31.6 L Hemoglobin Concent Red Cell 13.2 Distribution Width Platelet Count 293 Mean Platelet Volume 10.9 H Immature 0.600 H Granulocytes % Neutrophils % 86.8 H Lymphocytes % 8.6 L Monocytes % 4.0 Eosinophils % 0.0 Basophils % 0.0 Nucleated Red Blood 0.0 Cells % Immature 0.050 H Granulocytes # Neutrophils # 7.7 H Lymphocytes # 0.8 Monocytes # 0.4 Eosinophils # 0.0 Basophils # 0.0 Nucleated Red Blood 0.0 Cells # Prothrombin Time 15.2 H Prothrombin Time 1.2 Ratio INR International 1.19 Normalized Ratio Sodium Level 141 Chloride Level 109 Carbon Dioxide Level 26 Anion Gap 6 Blood Urea Nitrogen 19 # Creatinine 0.48 Est Glomerular Filtrat Rate mL/min Glucose Level 103 Calcium Level 7.4 L Magnesium Level 2.0 Total Bilirubin 0.6 Direct Bilirubin 0.00 Indirect Bilirubin 0.6 Aspartate Amino 59 H Transf (AST/SGOT) Alanine 44 Aminotransferase (AL T/SGPT) Alkaline Phosphatase 105 Total Protein 4.8 #L Albumin 2.5 #L Globulin 2.30 Albumin/Globulin 1.08 Ratio Medications Medication Current Medications Aripiprazole (Abilify) 5 mg DAILY PO Last administered on 03/01/19at 09:17; Admin Dose 5 MG; Start 02/28/19 at 09:00 Atenolol (Tenormin) 50 mg DAILY PO ; Start 02/28/19 at 09:00 Escitalopram Oxalate (Lexapro) 10 mg QHS PO Last administered on 02/28/19at 21:40; Admin Dose 10 MG; Start 02/27/19 at 21:00 Tramadol HCl (Ultram) 50 mg Q8H PRN PO PAIN LEVEL 4-6; Start 02/27/19 at 18:30 Quetiapine Fumarate (Seroquel) 50 mg HS PO Last administered on 02/28/19at 21:44; Admin Dose 50 MG; Start 02/27/19 at 21:00 IV Flush (NS 3 ml) 3 ml PER PROTOCOL IV ; Start 02/27/19 at 18:30 Ondansetron HCl (Zofran Inj) 4 mg Q6H PRN IV NAUSEA/VOMITING; Start 02/27/19 at 18:30 Nitroglycerin (Nitroglycerin (Sl Tab) 0.4 Mg) 1 tab Q5M PRN SL .CHEST PAIN; S tart 02/27/19 at 18:30 Acetaminophen (Tylenol Tab) 650 mg Q6H PRN PO .PAIN 1-3 OR TEMP; Start 02/27/19 at 18:30 Docusate Sodium (Colace) 100 mg Q12H PRN PO .CONSTIPATION; Start 02/27/19 at 18:30 Magnesium Hydroxide (Milk Of Mag) 30 ml DAILY PRN PO .CONSTIPATION; Start 02/27/19 at 18:30 Famotidine (Pepcid) 20 mg DAILY PO Last administered on 03/01/19at 09:17; Admin Dose 20 MG; Start 02/27/19 at 21:00 Enoxaparin Sodium (Lovenox) 40 mg DAILY SC ; Start 02/28/19 at 09:00 Potassium Chloride/Dextrose/ Sod Cl 1,000 ml @ 40 mls/hr Q24H IV Last administered on 03/01/19at 09:18; Admin Dose 40 MLS/HR; Start 02/28/19 at 09:30 Miscellaneous Information (Pending [facility] Order For Wound Care) This patient briones... PRN PRN XX WOUND CARE; Start 02/28/19 at 11:00 Oxycodone HCl (Roxicodone) 10 mg Q4H PRN PO pain 6-10; Start 02/28/19 at 20:00 Oxycodone HCl (Roxicodone) 5 mg Q4H PRN PO .PAIN; Start 02/28/19 at 20:00 Hydromorphone HCl (Dilaudid) 0.5 mg Q3H PRN IV .BREAKTHROUGH PAIN; Start 02/28/19 at 20:00 Acetaminophen (Tylenol Tab) 1,000 mg Q8 PO Last administered on 03/01/19at 05:55; Admin Dose 1,000 MG; Start 02/28/19 at 22:00 Ondansetron HCl (Zofran Inj) 4 mg Q4H PRN IV NAUSEA/VOMITING; Start 03/01/19 at 20:00 Cefazolin Sodium/ Dextrose 50 ml @ 100 mls/hr Q8H IVPB Last administered on 03/01/19at 05:54; Admin Dose 100 MLS/HR; Start 02/28/19 at 22:00; Stop 03/01/19 at 14:29 Pantoprazole (Protonix Tab) 40 mg DAILY@06 PO Last administered on 03/01/19at 05:54; Admin Dose 40 MG; Start 03/01/19 at 06:00 Docusate Sodium (Colace) 200 mg BID PO Last administered on 03/01/19at 09:15; Admin Dose 200 MG; Start 03/01/19 at 09:00; Stop 03/03/19 at 21:01 Simethicone (Mylicon) 80 mg TID PRN PO .GAS; Start 02/28/19 at 20:00 Senna/Docusate Sodium (Senokot-S) 2 tab BID PRN PO .CONSTIPATION; Start at 20:00 Magnesium Hydroxide (Milk Of Mag) 30 ml HS PRN PO .CONSTIPATION; Start 02/28/19 at 20:00 Bisacodyl (Dulcolax Supp) 10 mg DAILY PRN PA .CONSTIPATION; Start 02/28/19 at 20:00 Sodium Biphosphate/ Sodium Phosphate (Fleet Enema) 133 ml DAILY PRN PA .CONSTIPATION; Start 02/28/19 at 20:00 Diphenhydramine HCl (Benadryl) 25 mg Q4H PRN IV .ITCHING; Start 02/28/19 at 20:00 Naloxone HCl (Narcan) 0.2 mg Q2M PRN IV .RESP RATE; Start 02/28/19 at 20:00 IV Flush (NS 3 ml) 3 ml per protocol IV ; Start 02/28/19 at 20:00 Enoxaparin Sodium (Lovenox) 40 mg DAILY SC ; Start 03/02/19 at 09:00 VIRI STOKES MD March 01, 2019 11:33
--- NOTE | 2019-03-01 12:39 | CONS ---
DATE OF ADMISSION: 02/27/2019 DATE OF CONSULTATION: 03/01/2019 REFERRING PHYSICIAN: Jillian Cash. REASON FOR CONSULTATION: Bilateral heel ulceration. HISTORY OF PRESENT ILLNESS: This is an 78-year-old female transferred from [facility] post left IM nail of left intertrochanteric hip fracture. The patient is noted to have pressure sores to bilateral heel and left anterior lower leg at the time of admission prior to surgical intervention was asked to evaluate the patient's postoperative day #1 left hip surgery. PAST MEDICAL HISTORY: Acute metabolic encephalopathy, acute and chronic heart failure, left hip fracture status post surgery, dementia. MEDICATIONS: reviewed ALLERGIES: NONE. PHYSICAL EXAMINATION: VITAL SIGNS: Temperature 97.4, pulse 51, respiratory rate 20, blood pressure is 157/67, pulse ox is 98% on room air. GENERAL: The patient is awake, unable to provide any history as bilateral lower extremities are warm. Pedal pulses 1+ on the right foot 0 popliteal. Left popliteal 2+, pedal pulses, nonpalpable. The patient with a deep tissue injury, unstageable ulceration, bilateral left heels, epidermolysis of skin, pain with palpation. No malodor, no cellulitis. The patient using appropriate mattress and has pillows on the posterior aspect of the calf. Mycotic nails. LABORATORIES: WBC 8.9, hemoglobin 8.7, hematocrit 27.5, platelets 293. Sodium 141, potassium 3.8, chloride 109, CO2 26, BUN 19, creatinine 0.48. Urine culture gram-negative and positive organisms. ASSESSMENT: 1. Left lower extremity ulceration without cellulitis. 2. Unstageable heel ulcers present at the time of admission. 3. Status post postop day left IM nail of subacute IT fracture. PLAN: Continue offloading heels. Recommend use of Prevalon boots. Obtain arterial studies and if compromised, recommend a vascular consult. Nursing recommendations given. Dictated By: AGUEDA HARRIS DPM RB/LUIS Conf#: [id number] DID#: [id number] CC: JILLIAN CASH MD; ADAM DICK MD;*EndCC* MTDD
--- NOTE | 2019-03-01 15:27 | CONS ---
DATE OF ADMISSION: 02/27/2019 DATE OF CONSULTATION: 03/01/2019 REFERRING PHYSICIAN: Dr. Agueda Harris. REASON FOR CONSULTATION: Bilateral heel ulcers. HISTORY OF PRESENT ILLNESS: This is an 78-year-old woman. She is Thai. She has got some [place] ia. She came in because of the left hip fractures. She had an intertrochanteric hip fracture. She had surgery yesterday. When she came in, she had already had ulcers on her heels that was probably s ubacute fracture and she has been just kind of lying in bed and developed a heel ulceration. She briones s got dry gangrene on the right heel. On the left, there is just kind of boggy blistering and deep t issue necrosis. She is awake and alert, but she only speaks Thai and she does have dementia, not sure if she is in pain. She looks to be comfortable. Family apparently was involved when she came in and then she is not hospice care. PAST MEDICAL HISTORY: Significant for hypertension and Alzheimer's dementia. MEDICATIONS: Consist of: 1. Abilify. 2. Tenormin 3. Lexapro. 4. Ultram. 5. Seroquel. 6. Zofran. 7. Nitroglycerin. 8. Tylenol. 9. Colace. 10. Pepcid. 11. Subcutaneous Lovenox. 12. Dilaudid. ALLERGIES: SHE HAS NO KNOWN DRUG ALLERGIES. PAST SURGICAL HISTORY: Significant for kyphoplasty and a right hip surgery broken or just had a hip replacement in the past. SOCIAL HISTORY: She is a nonsmoker. She speaks Thai. She does not drink or use any illicit lupe gs. She has been living in a fpc facility. REVIEW OF SYSTEMS: Really not obtainable. She is awake and alert, but does not follow commands and is not interactive, and some of this may be her because of her language barrier that is not really cl ear. PHYSICAL EXAMINATION GENERAL: She is an elderly woman. She is in no acute distress. VITAL SIGNS: She has been afebrile. Her blood pressure is 136/60, heart rate 58, respiratory rate i s 20. She is 100% sat on room air. NECK: She has 2+ carotid, radial and brachial pulses bilaterally. LUNGS: Clear. HEART: Regular rate and rhythm. ABDOMEN: Soft, nontender, and nondistended. EXTREMITIES: She has 2+ femoral and popliteal pulses bilaterally. I do not feel popliteal, DP or PT pulses in either lower extremity. On the right, she has dry necrosis of the heel. There is dry esc erica on the left, it is kind of boggy blister with some deep tissue necrosis, but it has not demarcate d unlike the right heel did. She had a venous duplex that showed no DVT and a lot of edema in both l egs. She has an arterial study pending. LABORATORY DATA: Her white count is 8, platelet count is 293. Kidney function is normal. The rest of her electrolytes are normal. IMPRESSION: Extensive heel necrosis bilaterally after her hip fracture. It sounds like it was a sub acute fracture. She has been in a fpc facility and has pressure necrosis of both heels. I do not feel pedal pulses. She likely has some chronic arterial insufficiency. She has an arteria l study pending to see what the result of that is before I make any further recommendation. She defi nitely needs to have the heels offloaded. I would just paint them with Betadine. Dr. Harris is see ing her and he is going to give her further wound care recommendations. Dictated By: MICHAEL ENRIQUE/LUIS Conf#: [id number] DID#: [id number] CC: DAV SUAZO; AGUEDA HARRIS DPM; VIRI STOKES MD; ADAM DICK MD;*EndCC*
[2019-03-01] MEDS ORDERED: ONDANSETRON 4 MG INJ IV PRN (20:00)
[2019-03-01] MEDS: ESCITALOPRAM 10 MG TAB PO SCH (20:58)
[2019-03-01] MEDS: DAKINS 0.0125%(1/40) 473 ML SOLUTION TP SCH (21:02)
[2019-03-01] MEDS: QUETIAPINE 25 MG TAB PO SCH (21:02)
[2019-03-02] VITALS (12 sets, daily range): BP systolic 91–167; BP diastolic 50–78; PULSE 62–82; RESP 17–19
[2019-03-02] MEDS: ACCU-CHEK XX SCH ×4 (01:00→13:43)
[2019-03-02] MEDS: ACETAMINOPHEN 500 MG TAB PO SCH ×3 (05:50→21:37)
[2019-03-02] MEDS: PANTOPRAZOLE (EC) 40 MG TAB PO SCH (05:51)
[2019-03-02] MEDS ORDERED: POTASSIUM CHLORIDE (SR) 20 MEQ TAB PO STA (08:14)
--- NOTE | 2019-03-02 08:14 | CONS ---
Consult Date/Type/Reason Admit Date/Time February 27, 2019 at 17:40 Initial Consult Date 02/28/19 Requesting Provider: VIRI STOKES MD Date/Time of Note DATE: 03/02/19 TIME: 08:12 Subjective Interventional cardiology follow-up progress note Subjective: Discussed with staff telemetry was reviewed. pt remains in NSR Patient status post orthopedic surgery March 01, 2019. No cardiac complications reported patient does not answer question and remains confused. Objective: General: no acute distress HEENT: NC/AT. pupils are equal. round. NECK: NO JVD. no stridor. CV: RRR. systolic murmur; no gallop or rubs. PULM: no wheezing or rhonchi. GI: SOFT, NT, ND, no rebound or guarding Extremity: trace B/L LE edema. no clubbing. neuro: Comfortably sleeping Psych: calm rectal: deferred Echocardiogram was personally reviewed which shows: ormal left ventricular systolic function. Normal left ventricular cavity size. Mild concentric left ventricular hypertrophy. Ejection fraction is visually estimated at 65 %. Tissue Doppler/Mitral Doppler indices are consistent with impaired relaxation (Stage I diastolic dysfunction). Mitral valve leaflets appear mildly thickened. Mild mitral annular calcification. Trace mitral regurgitation. Aortic valve Max velocity 2.18 m/sec. Max PG 19.00 mmHg. Mean PG 11.00 mmHg. Aortic valve area 2.80 cm2. Aortic sclerosis without significant stenosis. Trace aortic valve regurgitation. Normal appearance of the tricuspid valve. The estimated Peak RVSP is 16 mmHg. There is trace tricuspid regurgitation. Objective Vitals Vital Signs Date Temp Pulse Resp B/P (MAP) Pulse Ox O2 O2 Flow FiO2 Time Delivery Rate 03/02/19 98.4 82 19 136/61 99 07:58 (86) 02/28/19 Nasal 3.0 20:30 Cannula Intake and Output 03/01/19 03/01/19 03/02/19 1515:00 23:00 07:00 IntakeIntake Total 1010 ml 150 ml OutputOutput Total 400 ml 2200 ml BalanceBalance 1010 ml -250 ml -2200 ml Results/Medications Result Diagram: 03/02/19 0523 03/02/19 0523 Results 24 hrs Laboratory Tests Test 03/01/19 20:56 03/02/19 01:39 03/02/19 05:23 03/02/19 05:48 Bedside Glucose 160 105 87 White Blood Count 10.4 Red Blood Count 2.86 L Hemoglobin 8.1 L Hematocrit 25.4 L Mean Corpuscular 88.8 Volume Mean Corpuscular 28.3 L Hemoglobin Mean Corpuscular 31.9 L Hemoglobin Concent Red Cell 13.2 Distribution Width Platelet Count 288 Mean Platelet Volume 10.4 Immature 0.700 H Granulocytes % Neutrophils % 65.1 Lymphocytes % 24.1 Monocytes % 8.7 Eosinophils % 1.3 Basophils % 0.1 Nucleated Red Blood 0.0 Cells % Immature 0.070 H Granulocytes # Neutrophils # 6.8 Lymphocytes # 2.5 Monocytes # 0.9 Eosinophils # 0.1 Basophils # 0.0 Nucleated Red Blood 0.0 Cells # Prothrombin Time 14.0 Prothrombin Time 1.1 Ratio INR International 1.07 Normalized Ratio Sodium Level 139 Potassium Level 3.6 Chloride Level 110 Carbon Dioxide Level 29 Anion Gap 0 L Blood Urea Nitrogen 21 H Creatinine 0.50 Est Glomerular Filtrat Rate mL/min Glucose Level 88 Calcium Level 7.5 L Home Meds Reported Medications Aripiprazole (Aripiprazole) 5 Mg Tablet, 1 TAB ORAL DAILY 02/27/19 Escitalopram Oxalate* (Escitalopram Oxalate*) 10 Mg Tablet, 1 TAB ORAL QHS 02/27/19 Furosemide* (Furosemide*) 20 Mg Tablet, 1 TAB ORAL DAILY 02/27/19 Atenolol* (Atenolol*) 50 Mg Tablet, 1 TAB ORAL DAILY 02/27/19 Baclofen* (Baclofen*) 10 Mg Tablet, 1 TAB ORAL BID PRN for MUSCLE SPASMS 02/27/19 Hydrochlorothiazide (Hydrochlorothiazide) 12.5 Mg Capsule, 1 CAP ORAL DAILY 02/27/19 Quetiapine Fumarate* (Quetiapine Fumarate*) 50 Mg Tablet, 50 MG PO HS, TAB 02/27/19 Ibuprofen* (Ibuprofen*) 800 Mg Tablet, 1 TAB ORAL Q8 02/27/19 Tramadol HCl (Tramadol HCl) 50 Mg Tablet, 1 TAB ORAL Q12 02/27/19 Medications Current Medications Aripiprazole (Abilify) 5 mg DAILY PO Last administered on 03/01/19at 09:17; Admin Dose 5 MG; Start 02/28/19 at 09:00 Atenolol (Tenormin) 50 mg DAILY PO ; Start 02/28/19 at 09:00 Escitalopram Oxalate (Lexapro) 10 mg QHS PO Last administered on 03/01/19at 20:58; Admin Dose 10 MG; Start 02/27/19 at 21:00 Tramadol HCl (Ultram) 50 mg Q8H PRN PO PAIN LEVEL 4-6; Start 02/27/19 at 18:30 Quetiapine Fumarate (Seroquel) 50 mg HS PO Last administered on 03/01/19at 21:02; Admin Dose 50 MG; Start 02/27/19 at 21:00 IV Flush (NS 3 ml) 3 ml PER PROTOCOL IV ; Start 02/27/19 at 18:30 Ondansetron HCl (Zofran Inj) 4 mg Q6H PRN IV NAUSEA/VOMITING; Start 02/27/19 at 18:30 Nitroglycerin (Nitroglycerin (Sl Tab) 0.4 Mg) 1 tab Q5M PRN SL .CHEST PAIN; Start 02/27/19 at 18:30 Acetaminophen (Tylenol Tab) 650 mg Q6H PRN PO .PAIN 1-3 OR TEMP; Start 02/27/19 at 18:30 Docusate Sodium (Colace) 100 mg Q12H PRN PO .CONSTIPATION; Start 02/27/19 at 18:30 Magnesium Hydroxide (Milk Of Mag) 30 ml DAILY PRN PO .CONSTIPATION; Start 02/27/19 at 18:30 Famotidine (Pepcid) 20 mg DAILY PO Last administered on 03/01/19at 09:17; Admin Dose 20 MG; Start 02/27/19 at 21:00 Enoxaparin Sodium (Lovenox) 40 mg DAILY SC ; Start 02/28/19 at 09:00 Potassium Chloride/Dextrose/ Sod Cl 1,000 ml @ 40 mls/hr Q24H IV Last administered on 03/01/19at 09:18; Admin Dose 40 MLS/HR; Start 02/28/19 at 09:30 Miscellaneous Information (Pending [facility] Order For Wound Care) This patient briones... PRN PRN XX WOUND CARE; Start 02/28/19 at 11:00 Oxycodone HCl (Roxicodone) 10 mg Q4H PRN PO pain 6-10; Start 02/28/19 at 20:00 Oxycodone HCl (Roxicodone) 5 mg Q4H PRN PO .PAIN; Start 02/28/19 at 20:00 Hydromorphone HCl (Dilaudid) 0.5 mg Q3H PRN IV .BREAKTHROUGH PAIN; Start 02/28/19 at 20:00 Acetaminophen (Tylenol Tab) 1,000 mg Q8 PO Last administered on 03/01/19at 13:35; Admin Dose 1,000 MG; Start 02/28/19 at 22:00 Ondansetron HCl (Zofran Inj) 4 mg Q4H PRN IV NAUSEA/VOMITING; Start 03/01/19 at 20:00 Pantoprazole (Protonix Tab) 40 mg DAILY@06 PO Last administered on 03/02/19at 05:51; Admin Dose 40 MG; Start 03/01/19 at 06:00 Docusate Sodium (Colace) 200 mg BID PO Last administered on 03/01/19at 20:58; Admin Dose 200 MG; Start 03/01/19 at 09:00; Stop 03/03/19 at 21:01 Simethicone (Mylicon) 80 mg TID PRN PO .GAS; Start 02/28/19 at 20:00 Senna/Docusate Sodium (Senokot-S) 2 tab BID PRN PO .CONSTIPATION; Start 02/28/19 at 20:00 Magnesium Hydroxide (Milk Of Mag) 30 ml HS PRN PO .CONSTIPATION; Start 02/28/19 at 20:00 Bisacodyl (Dulcolax Supp) 10 mg DAILY PRN ID .CONSTIPATION; Start 02/28/19 at 20:00 Sodium Biphosphate/ Sodium Phosphate (Fleet Enema) 133 ml DAILY PRN ID .CONSTIPATION; Start 02/28/19 at 20:00 Diphenhydramine HCl (Benadryl) 25 mg Q4H PRN IV .ITCHING; Start 02/28/19 at 20:00 Naloxone HCl (Narcan) 0.2 mg Q2M PRN IV .RESP RATE; Start 02/28/19 at 20:00 IV Flush (NS 3 ml) 3 ml per protocol IV ; Start 02/28/19 at 20:00 Enoxaparin Sodium (Lovenox) 40 mg DAILY SC ; Start 03/02/19 at 09:00 Sodium Hypochlorite (Dakins Diluted (1/40)) 1 applic BID TP Last administered on 03/01/19at 21:02; Admin Dose 1 APPLIC; Start 03/01/19 at 21:00 Diagnostic Test (Pha) (Accu-Chek) 1 ea Q4 XX Last administered on 03/02/19at 05:51; Admin Dose 1 EA; Start 03/01/19 at 21:00 Assessment/Plan Hospital Course (Demo Recall) Cardiovascular preop evaluation Hip fracture : Status post hip surgery Hypertension Aortic valve disorder Dementia Encephalopathy Hypokalemia Elevated BNP level. Clinically does not appear to be in decompensated heart failure though Recommendations: Replace potassium Resume low-dose Lasix to avoid fluid overload We will replace electrolytes as needed Continue the beta-william as tolerated POST OP CARE and DVT prophylaxis as per IM/ ortho rec Okay to DC telemetry from cardiac standpoint Thank you for his referral we will continue to follow along with SADE DEMPSEY MD [facility] SADE DEMPSEY MD March 02, 2019 08:14
[2019-03-02] MEDS: DOCUSATE SODIUM 100 MG CAP PO SCH ×2 (08:53→20:19)
[2019-03-02] MEDS: FUROSEMIDE 20 MG TAB PO SCH (08:53)
[2019-03-02] MEDS: ATENOLOL 50 MG TAB PO SCH (08:53)
[2019-03-02] MEDS: FAMOTIDINE 20 MG TAB PO SCH (08:54)
[2019-03-02] MEDS: ARIPIPRAZOLE 5 MG TAB PO SCH (08:54)
[2019-03-02] MEDS: ENOXAPARIN 40 MG/0.4 ML SYG SC SCH ×2 (08:55→09:00)
[2019-03-02] MEDS: DAKINS 0.0125%(1/40) 473 ML SOLUTION TP SCH ×2 (09:01→20:20)
[2019-03-02] MEDS: BALSAM PERU/CASTOR OIL 60 GM TUBE TOP SCH ×2 (09:02→20:20)
[2019-03-02] MEDS: oxyCODONE 5 MG TAB PO PRN (09:42)
[2019-03-02] MEDS: D5W-0.45 NACL + KCL 20 MEQ 1,000 ML IV SCH (10:28)
--- NOTE | 2019-03-02 15:41 | PN ---
Date/Time of Note Date/Time of Note DATE: 03/02/19 TIME: 15:36 Assessment/Plan VTE Prophylaxis Risk score (from Nsg)>0 risk: 17 SCD applied (from Nsg): Yes Pharmacological prophylaxis: LMWH Lines/Catheters IV Catheter Type (from Nrsg): Peripheral IV Urinary Cath still in place: Yes Reason Cath still needed: terminal illness/intractable pain Assessment/Plan Assessment/Plan 1. Left hip fracture s/p mechanical fall - Ortho on board and appreciate consultation. s/p Intramedullary nail of left intertrochanteric hip fracture 02/28 - LE dopplers negative 2. PVD - seen on arterial studies - Vascular consultation appreciate and will make recommendations based on imaging study results. recommending paint heel with Betadine for now 3. Left heel ulcer - appreciate Podiatry recommendations - offloading boots 4. Acute metabolic encephalopathy- stable 5. Dysphagia - speech on board and advancing diet as tolerated 6. Acute on chronic heart failure- stable - ECHO results noted with preserved EF - CXR negative for congestion - Cardiology consultation appreciated 7. Dementia - stable - per family, was able to feed self and ambulate to bathroom prior to fall 8. Disposition - awaiting recommendations for Vascular surgery - will downgrade to med/surg Ortho floor. Result Diagram: 03/02/1952203/02/19522 Results 24hrs Laboratory Tests Test 03/01/19 20:56 03/02/19 01:39 03/02/19 05:23 03/02/19 05:48 Bedside Glucose 160 105 87 White Blood Count 10.4 Red Blood Count 2.86 L Hemoglobin 8.1 L Hematocrit 25.4 L Mean Corpuscular 88.8 Volume Mean Corpuscular 28.3 L Hemoglobin Mean Corpuscular 31.9 L Hemoglobin Concent Red Cell 13.2 Distribution Width Platelet Count 288 Mean Platelet Volume 10.4 Immature 0.700 H Granulocytes % Neutrophils % 65.1 Lymphocytes % 24.1 Monocytes % 8.7 Eosinophils % 1.3 Basophils % 0.1 Nucleated Red Blood 0.0 Cells % Immature 0.070 H Granulocytes # Neutrophils # 6.8 Lymphocytes # 2.5 Monocytes # 0.9 Eosinophils # 0.1 Basophils # 0.0 Nucleated Red Blood 0.0 Cells # Prothrombin Time 14.0 Prothrombin Time 1.1 Ratio INR International 1.07 Normalized Ratio Sodium Level 139 Potassium Level 3.6 Chloride Level 110 Carbon Dioxide Level 29 Anion Gap 0 L Blood Urea Nitrogen 21 H Creatinine 0.50 Est Glomerular Filtrat Rate mL/min Glucose Level 88 Calcium Level 7.5 L Test 03/02/19 09:41 03/02/19 13:42 Bedside Glucose 214 84 Subjective 24 Hr Interval Summary Free Text/Dictation Patient resting comfortable in no acute distress. tolerating pureed diet. Exam/Review of Systems Exam Vitals Vital Signs Date Temp Pulse Resp B/P (MAP) Pulse Ox O2 O2 Flow FiO2 Time Delivery Rate 03/02/19 98.2 73 18 145/71 99 15:11 (95) 02/28/19 Nasal 3.0 20:30 Cannula Intake and Output 03/01/19 03/01/19 03/02/19 1515:00 23:00 07:00 IntakeIntake Total 1010 ml 150 ml OutputOutput Total 400 ml 2200 ml BalanceBalance 1010 ml -250 ml -2200 ml Exam General: Patient is in no acute distress. pleasantly confused Lungs: Clear to auscultation bilaterally, no wheezing or rhonchi Heart: Normal S1-S2, Regular rhythm and rate. No murmur, S3, or S4 Abdomen: Soft , nontender, nondistended , bowel sounds are present. No guarding no rebound tenderness Extremities: Normal to inspection, trace pitting edema LLE. no cyanosis or clubbing Skin: no rashes or lesions, dressing on LLE, CDI. Left hip dressing CDI Results Results 24hrs Laboratory Tests Test 03/01/19 20:56 03/02/19 01:39 03/02/19 05:23 03/02/19 05:48 Bedside Glucose 160 105 87 White Blood Count 10.4 Red Blood Count 2.86 L Hemoglobin 8.1 L Hematocrit 25.4 L Mean Corpuscular 88.8 Volume Mean Corpuscular 28.3 L Hemoglobin Mean Corpuscular 31.9 L Hemoglobin Concent Red Cell 13.2 Distribution Width Platelet Count 288 Mean Platelet Volume 10.4 Immature 0.700 H Granulocytes % Neutrophils % 65.1 Lymphocytes % 24.1 Monocytes % 8.7 Eosinophils % 1.3 Basophils % 0.1 Nucleated Red Blood 0.0 Cells % Immature 0.070 H Granulocytes # Neutrophils # 6.8 Lymphocytes # 2.5 Monocytes # 0.9 Eosinophils # 0.1 Basophils # 0.0 Nucleated Red Blood 0.0 Cells # Prothrombin Time 14.0 Prothrombin Time 1.1 Ratio INR International 1.07 Normalized Ratio Sodium Level 139 Potassium Level 3.6 Chloride Level 110 Carbon Dioxide Level 29 Anion Gap 0 L Blood Urea Nitrogen 21 H Creatinine 0.50 Est Glomerular Filtrat Rate mL/min Glucose Level 88 Calcium Level 7.5 L Test 03/02/19 09:41 03/02/19 13:42 Bedside Glucose 214 84 Medications Medication Current Medications Aripiprazole (Abilify) 5 mg DAILY PO Last administered on 03/02/19 08:54; Admin Dose 5 MG; Start 02/28/19 at 09:00 Atenolol (Tenormin) 50 mg DAILY PO Last administered on 03/02/19 08:53; Admin Dose 50 MG; Start 02/28/19 at 09:00 Escitalopram Oxalate (Lexapro) 10 mg QHS PO Last administered on 03/01/19 20:58; Admin Dose 10 MG; Start 02/27/19 at 21:00 Tramadol HCl (Ultram) 50 mg Q8H PRN PO PAIN LEVEL 4-6; Start 02/27/19 at 18:30 Quetiapine Fumarate (Seroquel) 50 mg HS PO Last administered on 03/01/19 21:02; Admin Dose 50 MG; Start 02/27/19 at 21:00 IV Flush (NS 3 ml) 3 ml PER PROTOCOL IV ; Start 02/27/19 at 18:30 Ondansetron HCl (Zofran Inj) 4 mg Q6H PRN IV NAUSEA/VOMITING; Start 02/27/19 at 18:30 Nitroglycerin (Nitroglycerin (Sl Tab) 0.4 Mg) 1 tab Q5M PRN SL .CHEST PAIN; Start 02/27/19 at 18:30 Acetaminophen (Tylenol Tab) 650 mg Q6H PRN PO .PAIN 1-3 OR TEMP; Start 02/27/19 at 18:30 Docusate Sodium (Colace) 100 mg Q12H PRN PO .CONSTIPATION; Start 02/27/19 at 18:30 Magnesium Hydroxide (Milk Of Mag) 30 ml DAILY PRN PO .CONSTIPATION; Start 02/27/19 at 18:30 Famotidine (Pepcid) 20 mg DAILY PO Last administered on 5/30/19at 08:54; Admin Dose 20 MG; Start 02/27/19 at 21:00 Enoxaparin Sodium (Lovenox) 40 mg DAILY SC ; Start 02/28/19 at 09:00 Potassium Chloride/Dextrose/ Sod Cl 1,000 ml @ 40 mls/hr Q24H IV Last administered on 03/02/19 10:28; Admin Dose 40 MLS/HR; Start 02/28/19 at 09:30 Miscellaneous Information (Pending Santyl Order For Wound Care) This patient briones... PRN PRN XX WOUND CARE; Start 02/28/19 at 11:00 Oxycodone HCl (Roxicodone) 10 mg Q4H PRN PO pain 6-10; Start 02/28/19 at 20:00 Oxycodone HCl (Roxicodone) 5 mg Q4H PRN PO .PAIN Last administered on 03/02/19at 09:42; Admin Dose 5 MG; Start 02/28/19 at 20:00 Hydromorphone HCl (Dilaudid) 0.5 mg Q3H PRN IV .BREAKTHROUGH PAIN; Start 02/28/19 at 20:00 Acetaminophen (Tylenol Tab) 1,000 mg Q8 PO Last administered on 03/02/19at 13:43; Admin Dose 1,000 MG; Start 02/28/19 at 22:00 Ondansetron HCl (Zofran Inj) 4 mg Q4H PRN IV NAUSEA/VOMITING; Start 03/01/19 at 20:00 Pantoprazole (Protonix Tab) 40 mg DAILY@06 PO Last administered on 03/02/19at 05:51; Admin Dose 40 MG; Start 03/01/19 at 06:00 Docusate Sodium (Colace) 200 mg BID PO Last administered on 03/02/19at 08:53; Admin Dose 200 MG; Start 03/01/19 at 09:00; Stop 03/03/19 at 21:01 Simethicone (Mylicon) 80 mg TID PRN PO .GAS; Start 02/28/19 at 20:00 Senna/Docusate Sodium (Senokot-S) 2 tab BID PRN PO .CONSTIPATION; Start 02/28/19 at 20:00 Magnesium Hydroxide (Milk Of Mag) 30 ml HS PRN PO .CONSTIPATION; Start 02/28/19 at 20:00 Bisacodyl (Dulcolax Supp) 10 mg DAILY PRN [place] .CONSTIPATION; Start 02/28/19 at 20:00 Sodium Biphosphate/ Sodium Phosphate (Fleet Enema) 133 ml DAILY PRN [place] .CONSTIPATION; Start 02/28/19 at 20:00 Diphenhydramine HCl (Benadryl) 25 mg Q4H PRN IV .ITCHING; Start 02/28/19 at 20:00 Naloxone HCl (Narcan) 0.2 mg Q2M PRN IV .RESP RATE; Start 02/28/19 at 20:00 IV Flush (NS 3 ml) 3 ml per protocol IV ; Start 02/28/19 at 20:00 Enoxaparin Sodium (Lovenox) 40 mg DAILY SC Last administered on 03/02/19at 08:55; Admin Dose 40 MG; Start 03/02/19 at 09:00 Sodium Hypochlorite (Dakins Diluted ()) 1 applic BID TP Last administered on 03/02/19 09:01; Admin Dose 1 APPLIC; Start 03/01/19 at 21:00 Diagnostic Test (Pha) (Accu-Chek) 1 ea Q4 XX Last administered on 03/02/19 13:43; Admin Dose 1 EA; Start 03/01/19 at 21:00 Furosemide (Lasix) 20 mg DAILY PO Last administered on 03/02/19 08:53; Admin Dose 20 MG; Start 03/02/19 at 09:00 VIRI STOKES MD March 02, 2019 15:41
[2019-03-02] MEDS: QUETIAPINE 25 MG TAB PO SCH (20:20)
[2019-03-02] MEDS: ESCITALOPRAM 10 MG TAB PO SCH (20:20)
[2019-03-03 03:58] VITALS: BP 114/54; PULSE 67; RESP 18
[2019-03-03] MEDS: PANTOPRAZOLE (EC) 40 MG TAB PO SCH (05:58)
[2019-03-03] MEDS: ACETAMINOPHEN 500 MG TAB PO SCH ×3 (05:58→21:34)
[2019-03-03 07:23] VITALS: BP_SYST 129; BP_SYST 183; BP_DIAS 59; BP_DIAS 88; PULSE 66; RESP 18
--- NOTE | 2019-03-03 08:01 | CONS ---
Consult Date/Type/Reason Admit Date/Time February 27, 2019 at 17:40 Initial Consult Date 02/28/19 Requesting Provider: VIRI STOKES MD Date/Time of Note DATE: 03/03/19 TIME: 08:00 Subjective Interventional cardiology follow-up progress note Subjective: Discussed with staff PT IS OFF tele now Patient status post orthopedic surgery March 01, 2019. No cardiac complications reported patient does not answer question and remains confused. but calm now no reports of any cp or pressure Objective: General: no acute distress HEENT: NC/AT. pupils are equal. round. NECK: NO JVD. no stridor. CV: RRR. systolic murmur; no gallop or rubs. PULM: no wheezing or rhonchi. GI: SOFT, NT, ND, no rebound or guarding Extremity: trace B/L LE edema. no clubbing. neuro: awake Psych: calm rectal: deferred Echocardiogram was personally reviewed which shows: ormal left ventricular systolic function. Normal left ventricular cavity size. Mild concentric left ventricular hypertrophy. Ejection fraction is visually estimated at 65 %. Tissue Doppler/Mitral Doppler indices are consistent with impaired relaxation (Stage I diastolic dysfunction). Mitral valve leaflets appear mildly thickened. Mild mitral annular calcification. Trace mitral regurgitation. Aortic valve Max velocity 2.18 m/sec. Max PG 19.00 mmHg. Mean PG 11.00 mmHg. Aortic valve area 2.80 cm2. Aortic sclerosis without significant stenosis. Trace aortic valve regurgitation. Normal appearance of the tricuspid valve. The estimated Peak RVSP is 16 mmHg. There is trace tricuspid regurgitation. Objective Vitals Vital Signs Date Temp Pulse Resp B/P (MAP) Pulse Ox O2 O2 Flow FiO2 Time Delivery Rate 03/03/19 98.2 66 18 129/59 96 07:23 (82) 02/28/19 Nasal 3.0 20:30 Cannula Intake and Output 03/02/19 03/02/19 03/03/19 1515:00 23:00 07:00 IntakeIntake Total 200 ml 200 ml OutputOutput Total 1000 ml 350 ml BalanceBalance -800 ml -150 ml Results/Medications Result Diagram: 03/03/19 0541 03/03/19 0541 Results 24 hrs Laboratory Tests Test 03/02/19 09:41 03/02/19 13:42 03/03/19 05:41 Bedside Glucose 214 84 White Blood Count 10.1 Red Blood Count 3.23 L Hemoglobin 8.9 L Hematocrit 28.6 L Mean Corpuscular Volume 88.5 Mean Corpuscular Hemoglobin 27.6 L Mean Corpuscular Hemoglobin Concent 31.1 L Red Cell Distribution Width 13.6 Platelet Count 335 Mean Platelet Volume 10.3 Immature Granulocytes % 1.000 H Neutrophils % 56.9 Lymphocytes % 28.8 Monocytes % 9.5 Eosinophils % 3.6 Basophils % 0.2 Nucleated Red Blood Cells % 0.0 Immature Granulocytes # 0.100 H Neutrophils # 5.7 Lymphocytes # 2.9 Monocytes # 1.0 H Eosinophils # 0.4 Basophils # 0.0 Nucleated Red Blood Cells # 0.0 Prothrombin Time 13.0 Prothrombin Time Ratio 1.0 INR International Normalized Ratio 0.97 Sodium Level 139 Potassium Level 4.3 Chloride Level 108 Carbon Dioxide Level 30 Anion Gap 1 L Blood Urea Nitrogen 16 Creatinine 0.46 Est Glomerular Filtrat Rate mL/min Glucose Level 82 Calcium Level 7.4 L Magnesium Level 1.7 Total Bilirubin 0.5 Direct Bilirubin 0.00 Indirect Bilirubin 0.5 Aspartate Amino Transf (AST/SGOT) 30 Alanine Aminotransferase (ALT/SGPT) 38 Alkaline Phosphatase 87 B-Type Natriuretic Peptide 4690 H Total Protein 4.7 L Albumin 2.3 L Globulin 2.40 Albumin/Globulin Ratio 0.95 Home Meds Reported Medications Aripiprazole (Aripiprazole) 5 Mg Tablet, 1 TAB ORAL DAILY 02/27/19 Escitalopram Oxalate* (Escitalopram Oxalate*) 10 Mg Tablet, 1 TAB ORAL QHS 02/27/19 Furosemide* (Furosemide*) 20 Mg Tablet, 1 TAB ORAL DAILY 02/27/19 Atenolol* (Atenolol*) 50 Mg Tablet, 1 TAB ORAL DAILY 02/27/19 Baclofen* (Baclofen*) 10 Mg Tablet, 1 TAB ORAL BID PRN for MUSCLE SPASMS 02/27/19 Hydrochlorothiazide (Hydrochlorothiazide) 12.5 Mg Capsule, 1 CAP ORAL DAILY 02/27/19 Quetiapine Fumarate* (Quetiapine Fumarate*) 50 Mg Tablet, 50 MG PO HS, TAB 02/27/19 Ibuprofen* (Ibuprofen*) 800 Mg Tablet, 1 TAB ORAL Q8 02/27/19 Tramadol HCl (Tramadol HCl) 50 Mg Tablet, 1 TAB ORAL Q12 02/27/19 Medications Current Medications Aripiprazole (Abilify) 5 mg DAILY PO Last administered on 03/02/19 08:54; Admin Dose 5 MG; Start 02/28/19 at 09:00 Atenolol (Tenormin) 50 mg DAILY PO Last administered on 03/02/19at 08:53; Admin Dose 50 MG; Start 02/28/19 at 09:00 Escitalopram Oxalate (Lexapro) 10 mg QHS PO Last administered on 03/02/19 20:20; Admin Dose 10 MG; Start 02/27/19 at 21:00 Tramadol HCl (Ultram) 50 mg Q8H PRN PO PAIN LEVEL 4-6; Start 02/27/19 at 18:30 Quetiapine Fumarate (Seroquel) 50 mg HS PO Last administered on 03/02/19 20:20; Admin Dose 50 MG; Start 02/27/19 at 21:00 IV Flush (NS 3 ml) 3 ml PER PROTOCOL IV ; Start 02/27/19 at 18:30 Ondansetron HCl (Zofran Inj) 4 mg Q6H PRN IV NAUSEA/VOMITING; Start 02/27/19 at 18:30 Nitroglycerin (Nitroglycerin (Sl Tab) 0.4 Mg) 1 tab Q5M PRN SL .CHEST PAIN; Start 02/27/19 at 18:30 Acetaminophen (Tylenol Tab) 650 mg Q6H PRN PO .PAIN 1-3 OR TEMP; Start 02/27/19 at 18:30 Docusate Sodium (Colace) 100 mg Q12H PRN PO .CONSTIPATION; Start 02/27/19 at 18:30 Magnesium Hydroxide (Milk Of Mag) 30 ml DAILY PRN PO .CONSTIPATION; Start 02/27/19 at 18:30 Famotidine (Pepcid) 20 mg DAILY PO Last administered on 03/02/19at 08:54; Admin Dose 20 MG; Start 02/27/19 at 21:00 Miscellaneous Information (Pending Santyl Order For Wound Care) This patient briones... PRN PRN XX WOUND CARE; Start 02/28/19 at 11:00 Oxycodone HCl (Roxicodone) 10 mg Q4H PRN PO pain 6-10; Start 02/28/19 at 20:00 Oxycodone HCl (Roxicodone) 5 mg Q4H PRN PO .PAIN Last administered on 03/02/19at 09:42; Admin Dose 5 MG; Start 02/28/19 at 20:00 Hydromorphone HCl (Dilaudid) 0.5 mg Q3H PRN IV .BREAKTHROUGH PAIN; Start 02/28/19 at 20:00 Acetaminophen (Tylenol Tab) 1,000 mg Q8 PO Last administered on 03/03/19at 05:58; Admin Dose 1,000 MG; Start 02/28/19 at 22:00 Ondansetron HCl (Zofran Inj) 4 mg Q4H PRN IV NAUSEA/VOMITING; Start 03/01/19 at 20:00 Pantoprazole (Protonix Tab) 40 mg DAILY@06 PO Last administered on 03/03/19at 05:58; Admin Dose 40 MG; Start 03/01/19 at 06:00 Docusate Sodium (Colace) 200 mg BID PO Last administered on 03/02/19at 20:19; Admin Dose 200 MG; Start 03/01/19 at 09:00; Stop 03/03/19 at 21:01 Simethicone (Mylicon) 80 mg TID PRN PO .GAS; Start 02/28/19 at 20:00 Senna/Docusate Sodium (Senokot-S) 2 tab BID PRN PO .CONSTIPATION; Start 02/28/19 at 20:00 Magnesium Hydroxide (Milk Of Mag) 30 ml HS PRN PO .CONSTIPATION; Start 02/28/19 at 20:00 Bisacodyl (Dulcolax Supp) 10 mg DAILY PRN [place] .CONSTIPATION; Start 02/28/19 at 20:00 Sodium Biphosphate/ Sodium Phosphate (Fleet Enema) 133 ml DAILY PRN [place] .CONSTIPATION; Start 02/28/19 at 20:00 Diphenhydramine HCl (Benadryl) 25 mg Q4H PRN IV .ITCHING; Start 02/28/19 at 20:00 Naloxone HCl (Narcan) 0.2 mg Q2M PRN IV .RESP RATE; Start 02/28/19 at 20:00 IV Flush (NS 3 ml) 3 ml per protocol IV ; Start 02/28/19 at 20:00 Enoxaparin Sodium (Lovenox) 40 mg DAILY SC Last administered on 03/02/19at 08:55; Admin Dose 40 MG; Start 03/02/19 at 09:00 Sodium Hypochlorite (Dakins Diluted (40)) 1 applic BID TP Last administered on 03/02/19 20:20; Admin Dose 1 APPLIC; Start 03/01/19 at 21:00 Furosemide (Lasix) 20 mg DAILY PO Last administered on 03/02/19 08:53; Admin Dose 20 MG; Start 03/02/19 at 09:00 Assessment/Plan Hospital Course (Demo Recall) Cardiovascular preop evaluation Hip fracture : Status post hip surgery Hypertension Aortic valve disorder Dementia Encephalopathy Hypokalemia Elevated BNP level. Clinically does not appear to be in decompensated heart failure though Recommendations: Replace potassium Resume low-dose Lasix to avoid fluid overload We will replace electrolytes as needed Continue the beta-william as tolerated POST OP CARE and DVT prophylaxis as per IM/ ortho rec No further cardiac recommendation at this point. We will follow-up as needed basis Thank you for his referral SADE DEMPSEY MD [facility] SADE DEMPSEY MD March 03, 2019 08:01
[2019-03-03] MEDS: ENOXAPARIN 40 MG/0.4 ML SYG SC SCH (08:21)
[2019-03-03] MEDS: ARIPIPRAZOLE 5 MG TAB PO SCH (08:21)
[2019-03-03] MEDS: ATENOLOL 50 MG TAB PO SCH (08:22)
[2019-03-03] MEDS: FAMOTIDINE 20 MG TAB PO SCH (08:22)
[2019-03-03] MEDS: FUROSEMIDE 20 MG TAB PO SCH (08:22)
[2019-03-03] MEDS: DOCUSATE SODIUM 100 MG CAP PO SCH ×2 (08:22→21:35)
[2019-03-03] MEDS: BALSAM PERU/CASTOR OIL 60 GM TUBE TOP SCH ×2 (08:23→21:36)
[2019-03-03] MEDS: DAKINS 0.0125%(1/40) 473 ML SOLUTION TP SCH ×2 (08:23→21:35)
--- NOTE | 2019-03-03 10:27 | PN ---
Date/Time of Note Date/Time of Note DATE: 03/03/19 TIME: 10:24 Assessment/Plan VTE Prophylaxis Risk score (from Nsg)>0 risk: 19 SCD applied (from Nsg): Yes Pharmacological prophylaxis: LMWH Lines/Catheters IV Catheter Type (from Nrsg): Saline Lock Urinary Cath still in place: Yes Reason Cath still needed: terminal illness/intractable pain Assessment/Plan Assessment/Plan 1. Left hip fracture s/p mechanical fall- stable - Ortho on board and appreciate consultation. s/p Intramedullary nail of left intertrochanteric hip fracture 02/28 - LE dopplers negative 2. PVD - seen on arterial studies - Vascular consultation appreciated 3. Left heel ulcer - appreciate Podiatry recommendations - offloading boots 4. Acute metabolic encephalopathy- stable 5. Dysphagia - speech on board and advancing diet as tolerated 6. Acute on chronic heart failure- stable - ECHO results noted with preserved EF - CXR negative for congestion - Cardiology consultation appreciated 7. Dementia - stable - per family, was able to feed self and ambulate to bathroom prior to fall 8. Disposition - Vascular surgery on board and awaiting further recommendations - ARU evaluation pending Result Diagram: 03/03/19 0541 03/03/19 0541 Results 24hrs Laboratory Tests Test 03/02/19 13:42 03/03/19 05:41 Bedside Glucose 84 White Blood Count 10.1 Red Blood Count 3.23 L Hemoglobin 8.9 L Hematocrit 28.6 L Mean Corpuscular Volume 88.5 Mean Corpuscular Hemoglobin 27.6 L Mean Corpuscular Hemoglobin Concent 31.1 L Red Cell Distribution Width 13.6 Platelet Count 335 Mean Platelet Volume 10.3 Immature Granulocytes % 1.000 H Neutrophils % 56.9 Lymphocytes % 28.8 Monocytes % 9.5 Eosinophils % 3.6 Basophils % 0.2 Nucleated Red Blood Cells % 0.0 Immature Granulocytes # 0.100 H Neutrophils # 5.7 Lymphocytes # 2.9 Monocytes # 1.0 H Eosinophils # 0.4 Basophils # 0.0 Nucleated Red Blood Cells # 0.0 Prothrombin Time 13.0 Prothrombin Time Ratio 1.0 INR International Normalized Ratio 0.97 Sodium Level 139 Potassium Level 4.3 Chloride Level 108 Carbon Dioxide Level 30 Anion Gap 1 L Blood Urea Nitrogen 16 Creatinine 0.46 Est Glomerular Filtrat Rate mL/min Glucose Level 82 Calcium Level 7.4 L Magnesium Level 1.7 Total Bilirubin 0.5 Direct Bilirubin 0.00 Indirect Bilirubin 0.5 Aspartate Amino Transf (AST/SGOT) 30 Alanine Aminotransferase (ALT/SGPT) 38 Alkaline Phosphatase 87 B-Type Natriuretic Peptide 4690 H Total Protein 4.7 L Albumin 2.3 L Globulin 2.40 Albumin/Globulin Ratio 0.95 Subjective 24 Hr Interval Summary Free Text/Dictation Patient in no acute distress and states shes doing fine. No acute overnight events. Exam/Review of Systems Exam Vitals Vital Signs Date Temp Pulse Resp B/P (MAP) Pulse Ox O2 O2 Flow FiO2 Time Delivery Rate 03/03/19 98.2 66 18 129/59 96 07:23 (82) 02/28/19 Nasal 3.0 20:30 Cannula Intake and Output 03/02/19 03/02/19 03/03/19 1515:00 23:00 07:00 IntakeIntake Total 200 ml 200 ml OutputOutput Total 1000 ml 350 ml BalanceBalance -800 ml -150 ml Exam General: Patient is in no acute distress. Lungs: Clear to auscultation bilaterally, no wheezing or rhonchi Heart: Normal S1-S2, Regular rhythm and rate. No murmur, S3, or S4 Abdomen: Soft , nontender, nondistended , bowel sounds are present. No guarding no rebound tenderness Extremities: Normal to inspection, trace pitting edema LLE. no cyanosis or clubbing Skin: no rashes or lesions, dressing on LLE, CDI. Left hip dressing CDI Results Results 24hrs Laboratory Tests Test 03/02/19 13:42 03/03/19 05:41 Bedside Glucose 84 White Blood Count 10.1 Red Blood Count 3.23 L Hemoglobin 8.9 L Hematocrit 28.6 L Mean Corpuscular Volume 88.5 Mean Corpuscular Hemoglobin 27.6 L Mean Corpuscular Hemoglobin Concent 31.1 L Red Cell Distribution Width 13.6 Platelet Count 335 Mean Platelet Volume 10.3 Immature Granulocytes % 1.000 H Neutrophils % 56.9 Lymphocytes % 28.8 Monocytes % 9.5 Eosinophils % 3.6 Basophils % 0.2 Nucleated Red Blood Cells % 0.0 Immature Granulocytes # 0.100 H Neutrophils # 5.7 Lymphocytes # 2.9 Monocytes # 1.0 H Eosinophils # 0.4 Basophils # 0.0 Nucleated Red Blood Cells # 0.0 Prothrombin Time 13.0 Prothrombin Time Ratio 1.0 INR International Normalized Ratio 0.97 Sodium Level 139 Potassium Level 4.3 Chloride Level 108 Carbon Dioxide Level 30 Anion Gap 1 L Blood Urea Nitrogen 16 Creatinine 0.46 Est Glomerular Filtrat Rate mL/min Glucose Level 82 Calcium Level 7.4 L Magnesium Level 1.7 Total Bilirubin 0.5 Direct Bilirubin 0.00 Indirect Bilirubin 0.5 Aspartate Amino Transf (AST/SGOT) 30 Alanine Aminotransferase (ALT/SGPT) 38 Alkaline Phosphatase 87 B-Type Natriuretic Peptide 4690 H Total Protein 4.7 L Albumin 2.3 L Globulin 2.40 Albumin/Globulin Ratio 0.95 Medications Medication Current Medications Aripiprazole (Abilify) 5 mg DAILY PO Last administered on 03/03/19 08:21; Admin Dose 5 MG; Start 02/28/19 at 09:00 Atenolol (Tenormin) 50 mg DAILY PO Last administered on 03/03/19 08:22; Admin Dose 50 MG; Start 02/28/19 at 09:00 Escitalopram Oxalate (Lexapro) 10 mg QHS PO Last administered on 03/02/19at 20:20; Admin Dose 10 MG; Start 02/27/19 at 21:00 Tramadol HCl (Ultram) 50 mg Q8H PRN PO PAIN LEVEL 4-6; Start 02/27/19 at 18:30 Quetiapine Fumarate (Seroquel) 50 mg HS PO Last administered on 03/02/19 20:20; Admin Dose 50 MG; Start 02/27/19 at 21:00 IV Flush (NS 3 ml) 3 ml PER PROTOCOL IV ; Start 02/27/19 at 18:30 Ondansetron HCl (Zofran Inj) 4 mg Q6H PRN IV NAUSEA/VOMITING; Start 02/27/19 at 18:30 Nitroglycerin (Nitroglycerin (Sl Tab) 0.4 Mg) 1 tab Q5M PRN SL .CHEST PAIN; Start 02/27/19 at 18:30 Acetaminophen (Tylenol Tab) 650 mg Q6H PRN PO .PAIN 1-3 OR TEMP; Start 02/27/19 at 18:30 Docusate Sodium (Colace) 100 mg Q12H PRN PO .CONSTIPATION; Start 02/27/19 at 18:30 Magnesium Hydroxide (Milk Of Mag) 30 ml DAILY PRN PO .CONSTIPATION; Start 02/27/19 at 18:30 Famotidine (Pepcid) 20 mg DAILY PO Last administered on 03/03/19at 08:22; Admin Dose 20 MG; Start 02/27/19 at 21:00 Miscellaneous Information (Pending Santyl Order For Wound Care) This patient briones... PRN PRN XX WOUND CARE; Start 02/28/19 at 11:00 Oxycodone HCl (Roxicodone) 10 mg Q4H PRN PO pain 6-10; Start 02/28/19 at 20:00 Oxycodone HCl (Roxicodone) 5 mg Q4H PRN PO .PAIN Last administered on 03/02/19at 09:42; Admin Dose 5 MG; Start 02/28/19 at 20:00 Hydromorphone HCl (Dilaudid) 0.5 mg Q3H PRN IV .BREAKTHROUGH PAIN; Start 02/28/19 at 20:00 Acetaminophen (Tylenol Tab) 1,000 mg Q8 PO Last administered on 03/03/19at 05:58; Admin Dose 1,000 MG; Start 02/28/19 at 22:00 Ondansetron HCl (Zofran Inj) 4 mg Q4H PRN IV NAUSEA/VOMITING; Start 03/01/19 at 20:00 Pantoprazole (Protonix Tab) 40 mg DAILY@06 PO Last administered on 03/03/19at 05:58; Admin Dose 40 MG; Start 03/01/19 at 06:00 Docusate Sodium (Colace) 200 mg BID PO Last administered on 03/03/19at 08:22; Admin Dose 200 MG; Start 03/01/19 at 09:00; Stop 03/03/19 at 21:01 Simethicone (Mylicon) 80 mg TID PRN PO .GAS; Start 02/28/19 at 20:00 Senna/Docusate Sodium (Senokot-S) 2 tab BID PRN PO .CONSTIPATION; Start 02/28/19 at 20:00 Magnesium Hydroxide (Milk Of Mag) 30 ml HS PRN PO .CONSTIPATION; Start 02/28/19 at 20:00 Bisacodyl (Dulcolax Supp) 10 mg DAILY PRN [place] .CONSTIPATION; Start 02/28/19 at 20:00 Sodium Biphosphate/ Sodium Phosphate (Fleet Enema) 133 ml DAILY PRN [place] .CONSTIPATION; Start 02/28/19 at 20:00 Diphenhydramine HCl (Benadryl) 25 mg Q4H PRN IV .ITCHING; Start 02/28/19 at 20:00 Naloxone HCl (Narcan) 0.2 mg Q2M PRN IV .RESP RATE; Start 02/28/19 at 20:00 IV Flush (NS 3 ml) 3 ml per protocol IV ; Start 02/28/19 at 20:00 Enoxaparin Sodium (Lovenox) 40 mg DAILY SC Last administered on 03/03/19at 08:21; Admin Dose 40 MG; Start 03/02/19 at 09:00 Sodium Hypochlorite (Dakins Diluted ()) 1 applic BID TP Last administered on 03/03/19at 08:23; Admin Dose 1 APPLIC; Start 03/01/19 at 21:00 Furosemide (Lasix) 20 mg DAILY PO Last administered on 03/03/19at 08:22; Admin Dose 20 MG; Start 03/02/19 at 09:00 VIRI STOKES MD March 03, 2019 10:26
[2019-03-03] MEDS: oxyCODONE 5 MG TAB PO PRN (10:54)
[2019-03-03 11:12] VITALS: BP 125/75; PULSE 83; RESP 17
[2019-03-03 15:10] VITALS: BP 145/71; PULSE 72; RESP 16
[2019-03-03 20:00] VITALS: BP 139/65; PULSE 81; RESP 18
[2019-03-03] MEDS: ESCITALOPRAM 10 MG TAB PO SCH (21:34)
[2019-03-03] MEDS: QUETIAPINE 25 MG TAB PO SCH (21:34)
[2019-03-03 23:50] VITALS: BP 116/56; PULSE 80; RESP 20
[2019-03-04 02:20] VITALS: BP 148/72; PULSE 77; RESP 18
[2019-03-04] MEDS: ACETAMINOPHEN 500 MG TAB PO SCH ×3 (06:45→21:14)
[2019-03-04] MEDS: PANTOPRAZOLE (EC) 40 MG TAB PO SCH (06:45)
[2019-03-04 07:35] VITALS: BP 133/64; PULSE 76; RESP 18
[2019-03-04] MEDS: ARIPIPRAZOLE 5 MG TAB PO SCH (09:00)
[2019-03-04] MEDS: FUROSEMIDE 20 MG TAB PO SCH (09:08)
[2019-03-04] MEDS: FAMOTIDINE 20 MG TAB PO SCH (09:08)
[2019-03-04] MEDS: ATENOLOL 50 MG TAB PO SCH (09:09)
[2019-03-04] MEDS: DAKINS 0.0125%(1/40) 473 ML SOLUTION TP SCH ×2 (09:09→21:12)
[2019-03-04] MEDS: BALSAM PERU/CASTOR OIL 60 GM TUBE TOP SCH ×2 (09:10→21:12)
[2019-03-04] MEDS: ENOXAPARIN 40 MG/0.4 ML SYG SC SCH (09:11)
--- NOTE | 2019-03-04 11:53 | PN ---
Date/Time of Note Date/Time of Note DATE: 03/04/19 TIME: 11:50 Assessment/Plan VTE Prophylaxis Risk score (from Ns)>0 risk: 19 SCD applied (from Ns): Yes Pharmacological prophylaxis: LMWH Lines/Catheters IV Catheter Type (from Nrsg): Saline Lock Urinary Cath still in place: No Assessment/Plan Assessment/Plan 1. Left hip fracture s/p mechanical fall s/p repair 02/28 - stable - PT on board and accepted to ARU pending Vascular workup - Ortho on board and appreciate consultation. s/p Intramedullary nail of left intertrochanteric hip fracture 02/28 - LE dopplers negative 2. PAD - seen on arterial studies - Vascular consultation appreciated. Will most likely need angiogram 3. Left heel ulcer - appreciate Podiatry recommendations - offloading boots - local wound care 4. Acute metabolic encephalopathy- stable 5. Dysphagia - speech on board and advancing diet as tolerated 6. Acute on chronic heart failure- stable - ECHO results noted with preserved EF - CXR negative for congestion - Cardiology consultation appreciated 7. Dementia - stable 8. Disposition - Will d/c to ARU once vascular intervention complete Result Diagram: 03/03/19 0541 03/04/19 0442 Results 24hrs Laboratory Tests Test 03/04/19 04:42 Prothrombin Time 12.7 Prothrombin Time Ratio 1.0 INR International Normalized Ratio 0.94 Sodium Level 139 Potassium Level 3.9 Chloride Level 107 Carbon Dioxide Level 30 Anion Gap 2 L Blood Urea Nitrogen 13 Creatinine 0.47 Est Glomerular Filtrat Rate mL/min Glucose Level 89 Calcium Level 7.4 L Subjective 24 Hr Interval Summary Free Text/Dictation Patient is doing well and no acute distress. No acute overnight events. Exam/Review of Systems Exam Vitals Vital Signs Date Temp Pulse Resp B/P (MAP) Pulse Ox O2 O2 Flow FiO2 Time Delivery Rate 03/04/19 97.5 76 18 133/64 94 07:35 (87) 02/28/19 Nasal 3.0 20:30 Cannula Intake and Output 03/03/19 03/03/19 03/04/19 1515:00 23:00 07:00 IntakeIntake Total 850 ml OutputOutput Total 950 ml 400 ml BalanceBalance -100 ml -400 ml Exam General: Patient is in no acute distress. Lungs: Clear to auscultation bilaterally, no wheezing or rhonchi Heart: Normal S1-S2, Regular rhythm and rate. No murmur, S3, or S4 Abdomen: Soft , nontender, nondistended , bowel sounds are present. No guarding no rebound tenderness Extremities: Normal to inspection, no cyanosis or clubbing Skin: no rashes or lesions, dressing on LLE, CDI. Left hip dressing CDI Results Results 24hrs Laboratory Tests Test 03/04/19 04:42 Prothrombin Time 12.7 Prothrombin Time Ratio 1.0 INR International Normalized Ratio 0.94 Sodium Level 139 Potassium Level 3.9 Chloride Level 107 Carbon Dioxide Level 30 Anion Gap 2 L Blood Urea Nitrogen 13 Creatinine 0.47 Est Glomerular Filtrat Rate mL/min Glucose Level 89 Calcium Level 7.4 L Medications Medication Current Medications Aripiprazole (Abilify) 5 mg DAILY PO Last administered on 03/03/19at 08:21; Admin Dose 5 MG; Start 02/28/19 at 09:00 Atenolol (Tenormin) 50 mg DAILY PO Last administered on 03/04/19at 09:09; Admin Dose 50 MG; Start 02/28/19 at 09:00 Escitalopram Oxalate (Lexapro) 10 mg QHS PO Last administered on 03/03/19at 21:34; Admin Dose 10 MG; Start 02/27/19 at 21:00 Tramadol HCl (Ultram) 50 mg Q8H PRN PO PAIN LEVEL 4-6; Start 02/27/19 at 18:30 Quetiapine Fumarate (Seroquel) 50 mg HS PO Last administered on 03/03/19at 21:34; Admin Dose 50 MG; Start 02/27/19 at 21:00 IV Flush (NS 3 ml) 3 ml PER PROTOCOL IV ; Start 02/27/19 at 18:30 Ondansetron HCl (Zofran Inj) 4 mg Q6H PRN IV NAUSEA/VOMITING; Start 02/27/19 at 18:30 Nitroglycerin (Nitroglycerin (Sl Tab) 0.4 Mg) 1 tab Q5M PRN SL .CHEST PAIN; Start 02/27/19 at 18:30 Acetaminophen (Tylenol Tab) 650 mg Q6H PRN PO .PAIN 1-3 OR TEMP; Start 02/27/19 at 18:30 Docusate Sodium (Colace) 100 mg Q12H PRN PO .CONSTIPATION; Start 02/27/19 at 18:30 Magnesium Hydroxide (Milk Of Mag) 30 ml DAILY PRN PO .CONSTIPATION Last administered on 03/03/19at 17:53; Admin Dose 30 ML; Start 02/27/19 at 18:30 Famotidine (Pepcid) 20 mg DAILY PO Last administered on 03/04/19at 09:08; Admin Dose 20 MG; Start 02/27/19 at 21:00 Miscellaneous Information (Pending [facility] Order For Wound Care) This patient briones... PRN PRN XX WOUND CARE; Start 02/28/19 at 11:00 Oxycodone HCl (Roxicodone) 10 mg Q4H PRN PO pain 6-10; Start 02/28/19 at 20:00 Oxycodone HCl (Roxicodone) 5 mg Q4H PRN PO .PAIN Last administered on 03/03/19at 10:54; Admin Dose 5 MG; Start 02/28/19 at 20:00 Hydromorphone HCl (Dilaudid) 0.5 mg Q3H PRN IV .BREAKTHROUGH PAIN; Start 02/28/19 at 20:00 Acetaminophen (Tylenol Tab) 1,000 mg Q8 PO Last administered on 03/04/19at 06:45; Admin Dose 1,000 MG; Start 02/28/19 at 22:00 Ondansetron HCl (Zofran Inj) 4 mg Q4H PRN IV NAUSEA/VOMITING; Start 03/01/19 at 20:00 Pantoprazole (Protonix Tab) 40 mg DAILY@06 PO Last administered on 03/04/19at 06:45; Admin Dose 40 MG; Start 03/01/19 at 06:00 Simethicone (Mylicon) 80 mg TID PRN PO .GAS; Start 02/28/19 at 20:00 Senna/Docusate Sodium (Senokot-S) 2 tab BID PRN PO .CONSTIPATION Last administered on 03/03/19at 13:56; Admin Dose 2 TAB; Start 02/28/19 at 20:00 Magnesium Hydroxide (Milk Of Mag) 30 ml HS PRN PO .CONSTIPATION; Start 02/28/19 at 20:00 Bisacodyl (Dulcolax Supp) 10 mg DAILY PRN [place] .CONSTIPATION; Start 02/28/19 at 20:00 Sodium Biphosphate/ Sodium Phosphate (Fleet Enema) 133 ml DAILY PRN [place] .CON STIPATION; Start 02/28/19 at 20:00 Diphenhydramine HCl (Benadryl) 25 mg Q4H PRN IV .ITCHING; Start 02/28/19 at 20:00 Naloxone HCl (Narcan) 0.2 mg Q2M PRN IV .RESP RATE; Start 02/28/19 at 20:00 IV Flush (NS 3 ml) 3 ml per protocol IV ; Start 02/28/19 at 20:00 Enoxaparin Sodium (Lovenox) 40 mg DAILY SC Last administered on 03/04/19at 09:11; Admin Dose 40 MG; Start 03/02/19 at 09:00 Sodium Hypochlorite (Dakins Diluted ()) 1 applic BID TP Last administered on 03/04/19at 09:09; Admin Dose 1 APPLIC; Start 03/01/19 at 21:00 Furosemide (Lasix) 20 mg DAILY PO Last administered on 03/04/19at 09:08; Admin Dose 20 MG; Start 03/02/19 at 09:00 VIRI STOKES MD Mar 04, 2019 11:53
[2019-03-04 13:29] VITALS: BP 136/75; PULSE 93; RESP 18
--- NOTE | 2019-03-04 17:56 | PN ---
Date/Time of Note Date/Time of Note DATE: 03/04/19 TIME: 17:54 Assessment/Plan Lines/Catheters IV Catheter Type (from Nrsg): Saline Lock Feliciano in Place (from Nrsg): No Assessment/Plan Chief Complaint/Hosp Course POD#4 s/p left IM nail of subacute IT fracture. Patient has multiple lower extremity wounds secondary to pressure and peripheral vascular disease. She is being followed by podiatry and vascular as well. -Post op H&H stable -PT/OT. -Joints pain control protocol -DVT prophylaxis: SCD's, 40 mg enoxaparin daily starting tomorrow x6 weeks -Weight bearing status: as tolerated -Discharge planning consult Recommend discharge to SNF when medically stable Subjective 24 Hr Interval Summary Patient doing well No acute events overnight Pain is well controlled Exam/Review of Systems Vital Signs Vitals Vital Signs Date Temp Pulse Resp B/P (MAP) Pulse Ox O2 O2 Flow FiO2 Time Delivery Rate 03/04/19 98.4 93 18 136/75 100 13:29 (95) 02/28/19 Nasal 3.0 20:30 Cannula Intake and Output 03/03/19 03/03/19 03/04/19 1515:00 23:00 07:00 IntakeIntake Total 850 ml OutputOutput Total 950 ml 400 ml BalanceBalance -100 ml -400 ml Exam Free Text/Dictation Left lower extremity: Dressing: clean, dry, and intact, no erythema Patient spontaneously wiggles toes. Cannot test sensation or motor function secondary to patient's severe dementia. Brisk cap refill. Results Result Diagram: 03/03/19 0541 03/04/19 0442 DAV SUAZO MD Mar 04, 2019 17:56
[2019-03-04 20:23] VITALS: BP 138/72; RESP 20
[2019-03-04] MEDS: ESCITALOPRAM 10 MG TAB PO SCH (21:11)
[2019-03-04] MEDS: QUETIAPINE 25 MG TAB PO SCH (21:11)
[2019-03-05 03:05] VITALS: BP 136/74; PULSE 90; RESP 17
[2019-03-05] MEDS: PANTOPRAZOLE (EC) 40 MG TAB PO SCH (05:31)
[2019-03-05] MEDS: ACETAMINOPHEN 500 MG TAB PO SCH ×3 (05:31→20:42)
[2019-03-05 07:24] VITALS: BP 139/68; PULSE 62; RESP 14
[2019-03-05] MEDS: ARIPIPRAZOLE 5 MG TAB PO SCH (08:59)
[2019-03-05] MEDS: FAMOTIDINE 20 MG TAB PO SCH (09:00)
[2019-03-05] MEDS: ATENOLOL 50 MG TAB PO SCH (09:00)
[2019-03-05] MEDS: FUROSEMIDE 20 MG TAB PO SCH (09:00)
[2019-03-05] MEDS: ENOXAPARIN 40 MG/0.4 ML SYG SC SCH (09:01)
[2019-03-05] MEDS: BALSAM PERU/CASTOR OIL 60 GM TUBE TOP SCH ×2 (09:05→20:42)
[2019-03-05] MEDS: DAKINS 0.0125%(1/40) 473 ML SOLUTION TP SCH ×2 (09:05→20:42)
--- NOTE | 2019-03-05 12:39 | PN ---
Date/Time of Note Date/Time of Note DATE: 03/05/19 TIME: 12:37 Assessment/Plan VTE Prophylaxis Risk score (from Ns)>0 risk: 6 SCD applied (from Nsg): Yes Pharmacological prophylaxis: heparin Lines/Catheters IV Catheter Type (from Nrsg): Saline Lock Urinary Cath still in place: No Assessment/Plan Assessment/Plan 1. Left hip fracture s/p mechanical fall s/p repair 02/28 - stable - PT on board and accepted to ARU pending Vascular workup - Ortho on board and appreciate consultation. s/p Intramedullary nail of left intertrochanteric hip fracture 02/28 - LE dopplers negative 2. PAD - seen on arterial studies - Vascular consultation appreciated. Will most likely need angiogram 3. Left heel ulcer - appreciate Podiatry recommendations - offloading boots - local wound care 4. Acute metabolic encephalopathy- stable 5. Dysphagia - speech on board and advancing diet as tolerated 6. Acute on chronic heart failure- stable - ECHO results noted with preserved EF - CXR negative for congestion - Cardiology consultation appreciated 7. Dementia - stable 8. Disposition - Will d/c to ARU once vascular intervention complete Result Diagram: 03/03/19 0541 03/05/19 0454 Results 24hrs Laboratory Tests Test 03/05/19 04:54 Prothrombin Time 12.7 Prothrombin Time Ratio 1.0 INR International Normalized Ratio 0.94 Sodium Level 139 Potassium Level 4.3 Chloride Level 103 Carbon Dioxide Level 34 H Anion Gap 2 L Blood Urea Nitrogen 11 Creatinine 0.46 Est Glomerular Filtrat Rate mL/min Glucose Level 72 Calcium Level 7.8 L Subjective 24 Hr Interval Summary Free Text/Dictation Patient resting comfortably and in no acute distress. Still slightly confused but states shes okay. Exam/Review of Systems Exam Vitals Vital Signs Date Temp Pulse Resp B/P (MAP) Pulse Ox O2 O2 Flow FiO2 Time Delivery Rate 03/05/19 98.5 62 14 139/68 95 Room Air 07:24 (91) Exam General: Patient is in no acute distress. Lungs: Clear to auscultation bilaterally, no wheezing or rhonchi Heart: Normal S1-S2, Regular rhythm and rate. No murmur, S3, or S4 Abdomen: Soft , nontender, nondistended , bowel sounds are present. No guarding no rebound tenderness Extremities: Normal to inspection, no cyanosis or clubbing Skin: no rashes or lesions, dressing on LLE, CDI. Left hip dressing CDI Results Results 24hrs Laboratory Tests Test 03/05/19 04:54 Prothrombin Time 12.7 Prothrombin Time Ratio 1.0 INR International Normalized Ratio 0.94 Sodium Level 139 Potassium Level 4.3 Chloride Level 103 Carbon Dioxide Level 34 H Anion Gap 2 L Blood Urea Nitrogen 11 Creatinine 0.46 Est Glomerular Filtrat Rate mL/min Glucose Level 72 Calcium Level 7.8 L Medications Medication Current Medications Aripiprazole (Abilify) 5 mg DAILY PO Last administered on 03/05/19at 08:59; Admin Dose 5 MG; Start 02/28/19 at 09:00 Atenolol (Tenormin) 50 mg DAILY PO Last administered on 03/05/19at 09:00; Admin Dose 50 MG; Start 02/28/19 at 09:00 Escitalopram Oxalate (Lexapro) 10 mg QHS PO Last administered on 03/04/19at 21:11; Admin Dose 10 MG; Start 02/27/19 at 21:00 Tramadol HCl (Ultram) 50 mg Q8H PRN PO PAIN LEVEL 4-6; Start 02/27/19 at 18:30 Quetiapine Fumarate (Seroquel) 50 mg HS PO Last administered on 03/04/19at 21:11; Admin Dose 50 MG; Start 02/27/19 at 21:00 IV Flush (NS 3 ml) 3 ml PER PROTOCOL IV ; Start 02/27/19 at 18:30 Ondansetron HCl (Zofran Inj) 4 mg Q6H PRN IV NAUSEA/VOMITING; Start 02/27/19 at 18:30 Nitroglycerin (Nitroglycerin (Sl Tab) 0.4 Mg) 1 tab Q5M PRN SL .CHEST PAIN; Start 02/27/19 at 18:30 Acetaminophen (Tylenol Tab) 650 mg Q6H PRN PO .PAIN 1-3 OR TEMP; Start 02/27/19 at 18:30 Docusate Sodium (Colace) 100 mg Q12H PRN PO .CONSTIPATION; Start 02/27/19 at 18:30 Magnesium Hydroxide (Milk Of Mag) 30 ml DAILY PRN PO .CONSTIPATION Last administered on 03/03/19at 17:53; Admin Dose 30 ML; Start 02/27/19 at 18:30 Famotidine (Pepcid) 20 mg DAILY PO Last administered on 03/05/19at 09:00; Admin Dose 20 MG; Start 02/27/19 at 21:00 Miscellaneous Information (Pending [facility] Order For Wound Care) This patient briones... PRN PRN XX WOUND CARE; Start 02/28/19 at 11:00 Oxycodone HCl (Roxicodone) 10 mg Q4H PRN PO pain 6-10; Start 02/28/19 at 20:00 Oxycodone HCl (Roxicodone) 5 mg Q4H PRN PO .PAIN Last administered on 03/03/19at 10:54; Admin Dose 5 MG; Start 02/28/19 at 20:00 Hydromorphone HCl (Dilaudid) 0.5 mg Q3H PRN IV .BREAKTHROUGH PAIN; Start 02/28/19 at 20:00 Acetaminophen (Tylenol Tab) 1,000 mg Q8 PO Last administered on 03/05/19at 05:31; Admin Dose 1,000 MG; Start 02/28/19 at 22:00 Ondansetron HCl (Zofran Inj) 4 mg Q4H PRN IV NAUSEA/VOMITING; Start 03/01/19 at 20:00 Pantoprazole (Protonix Tab) 40 mg DAILY@06 PO Last administered on 03/05/19at 05:31; Admin Dose 40 MG; Start 03/01/19 at 06:00 Simethicone (Mylicon) 80 mg TID PRN PO .GAS; Start 02/28/19 at 20:00 Senna/Docusate Sodium (Senokot-S) 2 tab BID PRN PO .CONSTIPATION Last administered on 03/03/19at 13:56; Admin Dose 2 TAB; Start 02/28/19 at 20:00 Magnesium Hydroxide (Milk Of Mag) 30 ml HS PRN PO .CONSTIPATION; Start 02/28/19 at 20:00 Bisacodyl (Dulcolax Supp) 10 mg DAILY PRN [place] .CONSTIPATION; Start 02/28/19 at 20:00 Sodium Biphosphate/ Sodium Phosphate (Fleet Enema) 133 ml DAILY PRN [place] .CONSTIPATION; Start 02/28/19 at 20:00 Diphenhydramine HCl (Benadryl) 25 mg Q4H PRN IV .ITCHING; Start 02/28/19 at 20:00 Naloxone HCl (Narcan) 0.2 mg Q2M PRN IV .RESP RATE; Start 02/28/19 at 20:00 IV Flush (NS 3 ml) 3 ml per protocol IV ; Start 02/28/19 at 20:00 Enoxaparin Sodium (Lovenox) 40 mg DAILY SC Last administered on 03/05/19at 09:01; Admin Dose 40 MG; Start 03/02/19 at 09:00 Sodium Hypochlorite (Dakins Diluted ()) 1 applic BID TP Last administered on 03/05/19at 09:05; Admin Dose 1 APPLIC; Start 03/01/19 at 21:00 Furosemide (Lasix) 20 mg DAILY PO Last administered on 03/05/19at 09:00; Admin Dose 20 MG; Start 03/02/19 at 09:00 VIRI STOKES MD Mar 05, 2019 12:39
[2019-03-05 14:07] VITALS: BP 103/56; PULSE 60; RESP 15
[2019-03-05 20:21] VITALS: BP 132/62; PULSE 64; RESP 18
[2019-03-05] MEDS: ESCITALOPRAM 10 MG TAB PO SCH (20:42)
[2019-03-05] MEDS: QUETIAPINE 25 MG TAB PO SCH (20:42)
[2019-03-06 01:36] VITALS: BP 128/68; PULSE 67; RESP 18
[2019-03-06] MEDS: PANTOPRAZOLE (EC) 40 MG TAB PO SCH (07:06)
[2019-03-06] MEDS: ACETAMINOPHEN 500 MG TAB PO SCH ×3 (07:07→21:20)
[2019-03-06 07:35] VITALS: BP 130/76; PULSE 63; RESP 18
[2019-03-06] MEDS: ATENOLOL 50 MG TAB PO SCH (09:30)
[2019-03-06] MEDS: FAMOTIDINE 20 MG TAB PO SCH (09:30)
[2019-03-06] MEDS: FUROSEMIDE 20 MG TAB PO SCH (09:30)
[2019-03-06] MEDS: ARIPIPRAZOLE 5 MG TAB PO SCH (09:30)
[2019-03-06] MEDS: DAKINS 0.0125%(1/40) 473 ML SOLUTION TP SCH ×2 (09:38→20:32)
[2019-03-06] MEDS: BALSAM PERU/CASTOR OIL 60 GM TUBE TOP SCH ×2 (09:38→20:33)
[2019-03-06] MEDS: ENOXAPARIN 40 MG/0.4 ML SYG SC SCH (09:39)
--- NOTE | 2019-03-06 09:48 | PN ---
Date/Time of Note Date/Time of Note DATE: 03/06/19 TIME: 09:45 Assessment/Plan Lines/Catheters IV Catheter Type (from Nrs): Saline Lock Feliciano in Place (from Nrs): No Assessment/Plan Assessment/Plan Bilateral heel ulcers and PAD - the ulcers are dry and stable [place] them with betadine daily and cover with dry gauze Instructed nurses to offload the heels by placing pillows under the calves when in bed OK for ARU or SNF transfer from my standpoint I will plan for angiogram / intervention of BLE's when she has recovered further from her hip surgery Subjective 24 Hr Interval Summary No c/o. Eating OK. Exam/Review of Systems Vital Signs Vitals Vital Signs Date Temp Pulse Resp B/P (MAP) Pulse Ox O2 O2 Flow FiO2 Time Delivery Rate 03/06/19 97.5 63 18 130/76 98 Room Air 07:35 (94) Intake and Output 03/05/19 03/05/19 03/06/19 1515:00 23:00 07:00 IntakeIntake Total 80 ml 100 ml 200 ml BalanceBalance 80 ml 100 ml 200 ml Exam Free Text/Dictation Bilateral heel ulcers - R is very dry, L is beginning to dry up as well, no erythema or drainage, L anterior calf ulcer is healed, lateral ulcer is very superficial Results Result Diagram: 03/06/1942003/06/19420 MICHAEL KHAN MD Mar 06, 2019 09:48
--- NOTE | 2019-03-06 12:44 | PN ---
Date/Time of Note Date/Time of Note DATE: 03/06/19 TIME: 12:37 Objective Vitals Vital Signs Date Temp Pulse Resp B/P (MAP) Pulse Ox O2 O2 Flow FiO2 Time Delivery Rate 03/06/19 97.5 63 18 130/76 98 Room Air 07:35 (94) Intake and Output 03/05/19 03/05/19 03/06/19 1515:00 23:00 07:00 IntakeIntake Total 80 ml 100 ml 200 ml BalanceBalance 80 ml 100 ml 200 ml Results Result Diagram: 03/06/19 0421 03/06/19 0421 Medications Medications Current Medications Aripiprazole (Abilify) 5 mg DAILY PO Last administered on 03/06/19at 09:30; Admin Dose 5 MG; Start 02/28/19 at 09:00 Atenolol (Tenormin) 50 mg DAILY PO Last administered on 03/06/19at 09:30; Admin Dose 50 MG; Start 02/28/19 at 09:00 Escitalopram Oxalate (Lexapro) 10 mg QHS PO Last administered on 03/05/19at 20:42; Admin Dose 10 MG; Start 02/27/19 at 21:00 Tramadol HCl (Ultram) 50 mg Q8H PRN PO PAIN LEVEL 4-6; Start 02/27/19 at 18:30 Quetiapine Fumarate (Seroquel) 50 mg HS PO Last administered on 03/05/19at 20:42; Admin Dose 50 MG; Start 02/27/19 at 21:00 IV Flush (NS 3 ml) 3 ml PER PROTOCOL IV ; Start 02/27/19 at 18:30 Ondansetron HCl (Zofran Inj) 4 mg Q6H PRN IV NAUSEA/VOMITING; Start 02/27/19 at 18:30 Nitroglycerin (Nitroglycerin (Sl Tab) 0.4 Mg) 1 tab Q5M PRN SL .CHEST PAIN; Start 02/27/19 at 18:30 Acetaminophen (Tylenol Tab) 650 mg Q6H PRN PO .PAIN 1-3 OR TEMP; Start 02/27/19 at 18:30 Docusate Sodium (Colace) 100 mg Q12H PRN PO .CONSTIPATION; Start 02/27/19 at 18:30 Magnesium Hydroxide (Milk Of Mag) 30 ml DAILY PRN PO .CONSTIPATION Last a dministered on 03/03/19at 17:53; Admin Dose 30 ML; Start 02/27/19 at 18:30 Famotidine (Pepcid) 20 mg DAILY PO Last administered on 03/06/19 09:30; Admin Dose 20 MG; Start 02/27/19 at 21:00 Miscellaneous Information (Pending [facility] Order For Wound Care) This patient briones... PRN PRN XX WOUND CARE; Start 02/28/19 at 11:00 Oxycodone HCl (Roxicodone) 10 mg Q4H PRN PO pain 6-10; Start 02/28/19 at 20:00 Oxycodone HCl (Roxicodone) 5 mg Q4H PRN PO .PAIN Last administered on 03/03/19at 10:54; Admin Dose 5 MG; Start 02/28/19 at 20:00 Hydromorphone HCl (Dilaudid) 0.5 mg Q3H PRN IV .BREAKTHROUGH PAIN; Start 02/28/19 at 20:00 Acetaminophen (Tylenol Tab) 1,000 mg Q8 PO Last administered on 03/06/19at 07:07; Admin Dose 1,000 MG; Start 02/28/19 at 22:00 Ondansetron HCl (Zofran Inj) 4 mg Q4H PRN IV NAUSEA/VOMITING; Start 03/01/19 at 20:00 Pantoprazole (Protonix Tab) 40 mg DAILY@06 PO Last administered on 03/06/19at 07:06; Admin Dose 40 MG; Start 03/01/19 at 06:00 Simethicone (Mylicon) 80 mg TID PRN PO .GAS; Start 02/28/19 at 20:00 Senna/Docusate Sodium (Senokot-S) 2 tab BID PRN PO .CONSTIPATION Last administered on 03/03/19at 13:56; Admin Dose 2 TAB; Start 02/28/19 at 20:00 Magnesium Hydroxide (Milk Of Mag) 30 ml HS PRN PO .CONSTIPATION; Start 02/28/19 at 20:00 Bisacodyl (Dulcolax Supp) 10 mg DAILY PRN [place] .CONSTIPATION; Start 02/28/19 at 20:00 Sodium Biphosphate/ Sodium Phosphate (Fleet Enema) 133 ml DAILY PRN [place] .CONSTIPATION; Start 02/28/19 at 20:00 Diphenhydramine HCl (Benadryl) 25 mg Q4H PRN IV .ITCHING; Start 02/28/19 at 20:00 Naloxone HCl (Narcan) 0.2 mg Q2M PRN IV .RESP RATE; Start 02/28/19 at 20:00 IV Flush (NS 3 ml) 3 ml per protocol IV ; Start 02/28/19 at 20:00 Enoxaparin Sodium (Lovenox) 40 mg DAILY SC Last administered on 03/06/19at 09:39; Admin Dose 40 MG; Start 03/02/19 at 09:00 Sodium Hypochlorite (Dakins Diluted ()) 1 applic BID TP Last administered on 03/06/19at 09:38; Admin Dose 1 APPLIC; Start 03/01/19 at 21:00 Furosemide (Lasix) 20 mg DAILY PO Last administered on 03/06/19at 09:30; Admin Dose 20 MG; Start 03/02/19 at 09:00 VTE Prophylaxis Risk score (from [facility]0 risk: 7 SCD applied (from [facility] Yes Lines/Catheters IV Catheter Type: Feliciano in Place: No Assessment/Plan Hospital Course Subjective Patient feeling well, no acute issues overnight Objective Physical exam General: Patient is laying in bed and answers questions appropriately Mentation: Patient is alert and oriented Head: Normocephalic atraumatic Eyes: EOMI, pupils reactive to light Neck: Supple, nontender, midline Respiratory: Clear to auscultation bilaterally Cardiovascular: regular rate, no obvious murmurs Gastrointestinal: non-tender to palpation, bowel sounds heard. Neurological: Moves all extremities spontaneously Skin: Lesions bandaged, CDI Assessment/Plan 1. Left hip fracture s/p mechanical fall s/p repair 02/28 - stable - PT on board and accepted to ARU pending Vascular workup - Ortho on board and appreciate consultation. s/p Intramedullary nail of left intertrochanteric hip fracture 02/28 - LE dopplers negative 2. PAD - seen on arterial studies - Vascular consultation appreciated. Stated patient does need angiogram however will be done after patient's fracture has healed in the outpatient setting per vascular surgeon Leukocytosis -Mild however is not in conjunction with her previous lab reads, will obtain UA. 3. Left heel ulcer - appreciate Podiatry recommendations - offloading boots - local wound care 4. Acute metabolic encephalopathy- stable 5. Dysphagia - speech on board and advancing diet as tolerated 6. Acute on chronic heart failure- stable - ECHO results noted with preserved EF - CXR negative for congestion - Cardiology consultation appreciated 7. Dementia - stable 8. Disposition - pending UA for elevated wbc JUSTINA BIRCH Mar 06, 2019 12:44
[2019-03-06 14:52] VITALS: BP 128/74; PULSE 66; RESP 18
--- NOTE | 2019-03-06 16:10 | CONS ---
Consult Date/Type/Reason Admit Date/Time February 27, 2019 at 17:40 Initial Consult Date 02/28/19 Type of Consultation: cv Requesting Provider: VIRI STOKES MD Date/Time of Note DATE: 03/06/19 TIME: 16:08 Subjective Interventional cardiology follow-up progress note Subjective: Discussed with staff PT IS OFF tele now Patient status post orthopedic surgery March 01, 2019. No cardiac complications reported no reports of any cp or pressure Objective: General: no acute distress HEENT: NC/AT. pupils are equal. round. NECK: NO JVD. no stridor. CV: RRR. systolic murmur; no gallop or rubs. PULM: no wheezing or rhonchi. GI: SOFT, NT, ND, no rebound or guarding Extremity: trace B/L LE edema. no clubbing. neuro: awake Psych: calm rectal: deferred Echocardiogram was personally reviewed which shows: ormal left ventricular systolic function. Normal left ventricular cavity size. Mild concentric left ventricular hypertrophy. Ejection fraction is visually estimated at 65 %. Tissue Doppler/Mitral Doppler indices are consistent with impaired relaxation (Stage I diastolic dysfunction). Mitral valve leaflets appear mildly thickened. Mild mitral annular calcification. Trace mitral regurgitation. Aortic valve Max velocity 2.18 m/sec. Max PG 19.00 mmHg. Mean PG 11.00 mmHg. Aortic valve area 2.80 cm2. Aortic sclerosis without significant stenosis. Trace aortic valve regurgitation. Normal appearance of the tricuspid valve. The estimated Peak RVSP is 16 mmHg. There is trace tricuspid regurgitation. Objective Vitals Vital Signs Date Temp Pulse Resp B/P (MAP) Pulse Ox O2 O2 Flow FiO2 Time Delivery Rate 03/06/19 98.0 66 18 128/74 94 Room Air 14:52 (92) Intake and Output 03/05/19 03/05/19 03/06/19 1515:00 23:00 07:00 IntakeIntake Total 80 ml 100 ml 200 ml BalanceBalance 80 ml 100 ml 200 ml Results/Medications Result Diagram: 03/06/19 0421 03/06/19 0421 Results 24 hrs Laboratory Tests Test 03/06/19 04:21 03/06/19 06:00 White Blood Count 12.5 #H Red Blood Count 3.73 L Hemoglobin 10.4 L Hematocrit 32.3 L Mean Corpuscular Volume 86.6 Mean Corpuscular Hemoglobin 27.9 L Mean Corpuscular Hemoglobin Concent 32.2 Red Cell Distribution Width 13.6 Platelet Count 458 #H Mean Platelet Volume 9.7 Immature Granulocytes % 1.100 H Neutrophils % 71.4 Lymphocytes % 16.6 Monocytes % 6.8 Eosinophils % 3.8 Basophils % 0.3 Nucleated Red Blood Cells % 0.0 Immature Granulocytes # 0.140 H Neutrophils # 8.9 H Lymphocytes # 2.1 Monocytes # 0.9 Eosinophils # 0.5 Basophils # 0.0 Nucleated Red Blood Cells # 0.0 Sodium Level 137 Potassium Level 3.5 Chloride Level 102 Carbon Dioxide Level 31 Anion Gap 4 L Blood Urea Nitrogen 11 Creatinine 0.48 Est Glomerular Filtrat Rate mL/min Glucose Level 82 Calcium Level 7.9 L Magnesium Level 1.8 Urine Color YELLOW Urine Clarity CLEAR Urine pH 7.0 Urine Specific [place] 1.004 Urine Ketones NEGATIVE Urine Nitrite NEGATIVE Urine Bilirubin NEGATIVE Urine Urobilinogen NEGATIVE Urine Leukocyte Esterase 2+ H Urine Microscopic RBC 5 Urine Microscopic WBC 20 H Urine Hemoglobin 1+ H Urine Glucose NEGATIVE Urine Total Protein NEGATIVE Home Meds Reported Medications Aripiprazole (Aripiprazole) 5 Mg Tablet, 1 TAB ORAL DAILY 02/27/19 Escitalopram Oxalate* (Escitalopram Oxalate*) 10 Mg Tablet, 1 TAB ORAL QHS 02/27/19 Furosemide* (Furosemide*) 20 Mg Tablet, 1 TAB ORAL DAILY 02/27/19 Atenolol* (Atenolol*) 50 Mg Tablet, 1 TAB ORAL DAILY 02/27/19 Baclofen* (Baclofen*) 10 Mg Tablet, 1 TAB ORAL BID PRN for MUSCLE SPASMS 02/27/19 Hydrochlorothiazide (Hydrochlorothiazide) 12.5 Mg Capsule, 1 CAP ORAL DAILY 02/27/19 Quetiapine Fumarate* (Quetiapine Fumarate*) 50 Mg Tablet, 50 MG PO HS, TAB 02/27/19 Ibuprofen* (Ibuprofen*) 800 Mg Tablet, 1 TAB ORAL Q8 02/27/19 Tramadol HCl (Tramadol HCl) 50 Mg Tablet, 1 TAB ORAL Q12 02/27/19 Medications Current Medications Aripiprazole (Abilify) 5 mg DAILY PO Last administered on 03/06/19at 09:30; Admin Dose 5 MG; Start 02/28/19 at 09:00 Atenolol (Tenormin) 50 mg DAILY PO Last administered on 6/3/19at 09:30; Admin Dose 50 MG; Start 02/28/19 at 09:00 Escitalopram Oxalate (Lexapro) 10 mg QHS PO Last administered on 03/05/19 20:42; Admin Dose 10 MG; Start 02/27/19 at 21:00 Tramadol HCl (Ultram) 50 mg Q8H PRN PO PAIN LEVEL 4-6; Start 02/27/19 at 18:30 Quetiapine Fumarate (Seroquel) 50 mg HS PO Last administered on 03/05/19 20:42; Admin Dose 50 MG; Start 02/27/19 at 21:00 IV Flush (NS 3 ml) 3 ml PER PROTOCOL IV ; Start 02/27/19 at 18:30 Ondansetron HCl (Zofran Inj) 4 mg Q6H PRN IV NAUSEA/VOMITING; Start 02/27/19 at 18:30 Nitroglycerin (Nitroglycerin (Sl Tab) 0.4 Mg) 1 tab Q5M PRN SL .CHEST PAIN; Start 02/27/19 at 18:30 Acetaminophen (Tylenol Tab) 650 mg Q6H PRN PO .PAIN 1-3 OR TEMP; Start 02/27/19 at 18:30 Docusate Sodium (Colace) 100 mg Q12H PRN PO .CONSTIPATION; Start 02/27/19 at 18:30 Magnesium Hydroxide (Milk Of Mag) 30 ml DAILY PRN PO .CONSTIPATION Last administered on 03/03/19 17:53; Admin Dose 30 ML; Start 02/27/19 at 18:30 Famotidine (Pepcid) 20 mg DAILY PO Last administered on 03/06/19 09:30; Admin Dose 20 MG; Start 02/27/19 at 21:00 Miscellaneous Information (Pending [facility] Order For Wound Care) This patient briones... PRN PRN XX WOUND CARE; Start 02/28/19 at 11:00 Oxycodone HCl (Roxicodone) 10 mg Q4H PRN PO pain 6-10; Start 02/28/19 at 20:00 Oxycodone HCl (Roxicodone) 5 mg Q4H PRN PO .PAIN Last administered on 03/03/19 10:54; Admin Dose 5 MG; Start 02/28/19 at 20:00 Hydromorphone HCl (Dilaudid) 0.5 mg Q3H PRN IV .BREAKTHROUGH PAIN; Start 02/28/19 at 20:00 Acetaminophen (Tylenol Tab) 1,000 mg Q8 PO Last administered on 03/06/19at 14:34; Admin Dose 1,000 MG; Start 02/28/19 at 22:00 Ondansetron HCl (Zofran Inj) 4 mg Q4H PRN IV NAUSEA/VOMITING; Start 03/01/19 at 20:00 Pantoprazole (Protonix Tab) 40 mg DAILY@06 PO Last administered on 03/06/19 07:06; Admin Dose 40 MG; Start 03/01/19 at 06:00 Simethicone (Mylicon) 80 mg TID PRN PO .GAS; Start 02/28/19 at 20:00 Senna/Docusate Sodium (Senokot-S) 2 tab BID PRN PO .CONSTIPATION Last administered on 03/03/19at 13:56; Admin Dose 2 TAB; Start 02/28/19 at 20:00 Magnesium Hydroxide (Milk Of Mag) 30 ml HS PRN PO .CONSTIPATION; Start 02/28/19 at 20:00 Bisacodyl (Dulcolax Supp) 10 mg DAILY PRN [place] .CONSTIPATION; Start 02/28/19 at 20:00 Sodium Biphosphate/ Sodium Phosphate (Fleet Enema) 133 ml DAILY PRN [place] .CONSTIPATION; Start 02/28/19 at 20:00 Diphenhydramine HCl (Benadryl) 25 mg Q4H PRN IV .ITCHING; Start 02/28/19 at 20:00 Naloxone HCl (Narcan) 0.2 mg Q2M PRN IV .RESP RATE; Start 02/28/19 at 20:00 IV Flush (NS 3 ml) 3 ml per protocol IV ; Start 02/28/19 at 20:00 Enoxaparin Sodium (Lovenox) 40 mg DAILY SC Last administered on 03/06/19at 09:39; Admin Dose 40 MG; Start 03/02/19 at 09:00 Sodium Hypochlorite (Dakins Diluted ()) 1 applic BID TP Last administered on 03/06/19at 09:38; Admin Dose 1 APPLIC; Start 03/01/19 at 21:00 Furosemide (Lasix) 20 mg DAILY PO Last administered on 03/06/19at 09:30; Admin Dose 20 MG; Start 03/02/19 at 09:00 Assessment/Plan Hospital Course (Demo Recall) Cardiovascular preop evaluation Hip fracture : Status post hip surgery Hypertension Aortic valve disorder Dementia Encephalopathy Hypokalemia Elevated BNP level. Clinically does not appear to be in decompensated heart failure though Recommendations: Replace potassium prn cont low-dose Lasix We will replace electrolytes as needed Continue the beta-william as tolerated POST OP CARE and DVT prophylaxis as per IM/ ortho rec Thank you for his referral SADE DEMPSEY MD [facility] SADE DEMPSEY MD Mar 06, 2019 16:10
[2019-03-06 19:43] VITALS: BP 107/60; PULSE 64; RESP 18
[2019-03-06] MEDS: QUETIAPINE 25 MG TAB PO SCH (20:32)
[2019-03-06] MEDS: ESCITALOPRAM 10 MG TAB PO SCH (20:32)
[2019-03-07 02:32] VITALS: BP 111/58; PULSE 72; RESP 18
[2019-03-07] MEDS: ACETAMINOPHEN 500 MG TAB PO SCH ×3 (07:04→21:17)
[2019-03-07] MEDS: PANTOPRAZOLE (EC) 40 MG TAB PO SCH (07:04)
[2019-03-07 08:25] VITALS: BP 106/61; PULSE 62; RESP 18
--- NOTE | 2019-03-07 08:32 | CONS ---
Consult Date/Type/Reason Admit Date/Time February 27, 2019 at 17:40 Initial Consult Date 02/28/19 Type of Consultation: cv Requesting Provider: VIRI STOKES MD Date/Time of Note DATE: 03/07/19 TIME: 08:32 Subjective Interventional cardiology follow-up progress note Subjective: Discussed with staff PT IS OFF tele now Patient status post orthopedic surgery March 01, 2019. No cardiac complications reported no reports of any cp or pressure Objective: General: no acute distress HEENT: NC/AT. pupils are equal. round. NECK: NO JVD. no stridor. CV: RRR. systolic murmur; no gallop or rubs. PULM: no wheezing or rhonchi. GI: SOFT, NT, ND, no rebound or guarding Extremity: trace B/L LE edema. no clubbing. neuro: awake Psych: calm rectal: deferred Echocardiogram was personally reviewed which shows: ormal left ventricular systolic function. Normal left ventricular cavity size. Mild concentric left ventricular hypertrophy. Ejection fraction is visually estimated at 65 %. Tissue Doppler/Mitral Doppler indices are consistent with impaired relaxation (Stage I diastolic dysfunction). Mitral valve leaflets appear mildly thickened. Mild mitral annular calcification. Trace mitral regurgitation. Aortic valve Max velocity 2.18 m/sec. Max PG 19.00 mmHg. Mean PG 11.00 mmHg. Aortic valve area 2.80 cm2. Aortic sclerosis without significant stenosis. Trace aortic valve regurgitation. Normal appearance of the tricuspid valve. The estimated Peak RVSP is 16 mmHg. There is trace tricuspid regurgitation. Objective Vitals Vital Signs Date Temp Pulse Resp B/P (MAP) Pulse Ox O2 O2 Flow FiO2 Time Delivery Rate 03/07/19 97.3 72 18 111/58 100 02:32 (75) 03/06/19 Room Air 14:52 Intake and Output 03/06/19 03/06/19 03/07/19 1515:00 23:00 07:00 IntakeIntake Total 240 ml BalanceBalance 240 ml Results/Medications Result Diagram: 03/07/19 0423 03/07/19 0423 Results 24 hrs Laboratory Tests Test 03/07/19 04:23 White Blood Count 12.7 H Red Blood Count 3.84 L Hemoglobin 10.7 L Hematocrit 34.0 L Mean Corpuscular Volume 88.5 Mean Corpuscular Hemoglobin 27.9 L Mean Corpuscular Hemoglobin Concent 31.5 L Red Cell Distribution Width 13.9 Platelet Count 461 H Mean Platelet Volume 9.7 Immature Granulocytes % 1.800 H Neutrophils % 66.2 Lymphocytes % 20.9 Monocytes % 7.7 Eosinophils % 3.2 Basophils % 0.2 Nucleated Red Blood Cells % 0.0 Immature Granulocytes # 0.230 H Neutrophils # 8.4 H Lymphocytes # 2.7 Monocytes # 1.0 H Eosinophils # 0.4 Basophils # 0.0 Nucleated Red Blood Cells # 0.0 Sodium Level 139 Potassium Level 3.5 Chloride Level 101 Carbon Dioxide Level 35 H Anion Gap 3 L Blood Urea Nitrogen 13 Creatinine 0.53 Est Glomerular Filtrat Rate mL/min Glucose Level 87 Calcium Level 7.9 L Phosphorus Level 3.8 Magnesium Level 2.0 Home Meds Reported Medications Aripiprazole (Aripiprazole) 5 Mg Tablet, 1 TAB ORAL DAILY 02/27/19 Escitalopram Oxalate* (Escitalopram Oxalate*) 10 Mg Tablet, 1 TAB ORAL QHS 02/27/19 Furosemide* (Furosemide*) 20 Mg Tablet, 1 TAB ORAL DAILY 02/27/19 Atenolol* (Atenolol*) 50 Mg Tablet, 1 TAB ORAL DAILY 02/27/19 Baclofen* (Baclofen*) 10 Mg Tablet, 1 TAB ORAL BID PRN for MUSCLE SPASMS 02/27/19 Hydrochlorothiazide (Hydrochlorothiazide) 12.5 Mg Capsule, 1 CAP ORAL DAILY 02/27/19 Quetiapine Fumarate* (Quetiapine Fumarate*) 50 Mg Tablet, 50 MG PO HS, TAB 02/27/19 Ibuprofen* (Ibuprofen*) 800 Mg Tablet, 1 TAB ORAL Q8 02/27/19 Tramadol HCl (Tramadol HCl) 50 Mg Tablet, 1 TAB ORAL Q12 02/27/19 Medications Current Medications Aripiprazole (Abilify) 5 mg DAILY PO Last administered on 03/06/19at 09:30; Admin Dose 5 MG; Start 02/28/19 at 09:00 Atenolol (Tenormin) 50 mg DAILY PO Last administered on 03/06/19at 09:30; Admin Dose 50 MG; Start 02/28/19 at 09:00 Escitalopram Oxalate (Lexapro) 10 mg QHS PO Last administered on 03/06/19at 20:32; Admin Dose 10 MG; Start 02/27/19 at 21:00 Tramadol HCl (Ultram) 50 mg Q8H PRN PO PAIN LEVEL 4-6; Start 02/27/19 at 18:30 Quetiapine Fumarate (Seroquel) 50 mg HS PO Last administered on 03/06/19at 20:32; Admin Dose 50 MG; Start 02/27/19 at 21:00 IV Flush (NS 3 ml) 3 ml PER PROTOCOL IV ; Start 02/27/19 at 18:30 Ondansetron HCl (Zofran Inj) 4 mg Q6H PRN IV NAUSEA/VOMITING; Start 02/27/19 at 18:30 Nitroglycerin (Nitroglycerin (Sl Tab) 0.4 Mg) 1 tab Q5M PRN SL .CHEST PAIN; Start 02/27/19 at 18:30 Acetaminophen (Tylenol Tab) 650 mg Q6H PRN PO .PAIN 1-3 OR TEMP Last administered on 03/06/19at 21:17; Admin Dose 650 MG; Start 02/27/19 at 18:30 Docusate Sodium (Colace) 100 mg Q12H PRN PO .CONSTIPATION; Start 02/27/19 at 18:30 Magnesium Hydroxide (Milk Of Mag) 30 ml DAILY PRN PO .CONSTIPATION Last administered on 03/03/19at 17:53; Admin Dose 30 ML; Start 02/27/19 at 18:30 Famotidine (Pepcid) 20 mg DAILY PO Last administered on 03/06/19at 09:30; Admin Dose 20 MG; Start 02/27/19 at 21:00 Miscellaneous Information (Pending [facility] Order For Wound Care) This patient briones... PRN PRN XX WOUND CARE; Start 02/28/19 at 11:00 Oxycodone HCl (Roxicodone) 10 mg Q4H PRN PO pain 6-10; Start 02/28/19 at 20:00 Oxycodone HCl (Roxicodone) 5 mg Q4H PRN PO .PAIN Last administered on 03/03/19at 10:54; Admin Dose 5 MG; Start 02/28/19 at 20:00 Hydromorphone HCl (Dilaudid) 0.5 mg Q3H PRN IV .BREAKTHROUGH PAIN; Start 02/28/19 at 20:00 Acetaminophen (Tylenol Tab) 1,000 mg Q8 PO Last administered on 03/07/19 07:04; Admin Dose 1,000 MG; Start 02/28/19 at 22:00 Ondansetron HCl (Zofran Inj) 4 mg Q4H PRN IV NAUSEA/VOMITING; Start 03/01/19 at 20:00 Pantoprazole (Protonix Tab) 40 mg DAILY@06 PO Last administered on 03/07/19 07:04; Admin Dose 40 MG; Start 03/01/19 at 06:00 Simethicone (Mylicon) 80 mg TID PRN PO .GAS; Start 02/28/19 at 20:00 Senna/Docusate Sodium (Senokot-S) 2 tab BID PRN PO .CONSTIPATION Last administered on 03/03/19 13:56; Admin Dose 2 TAB; Start 02/28/19 at 20:00 Magnesium Hydroxide (Milk Of Mag) 30 ml HS PRN PO .CONSTIPATION; Start 02/28/19 at 20:00 Bisacodyl (Dulcolax Supp) 10 mg DAILY PRN [place] .CONSTIPATION; Start 02/28/19 at 20:00 Sodium Biphosphate/ Sodium Phosphate (Fleet Enema) 133 ml DAILY PRN [place] .CONSTIPATION; Start 02/28/19 at 20:00 Diphenhydramine HCl (Benadryl) 25 mg Q4H PRN IV .ITCHING; Start 02/28/19 at 20: 00 Naloxone HCl (Narcan) 0.2 mg Q2M PRN IV .RESP RATE; Start 02/28/19 at 20:00 IV Flush (NS 3 ml) 3 ml per protocol IV ; Start 02/28/19 at 20:00 Enoxaparin Sodium (Lovenox) 40 mg DAILY SC Last administered on 03/06/19 09:39; Admin Dose 40 MG; Start 03/02/19 at 09:00 Sodium Hypochlorite (Dakins Diluted (40)) 1 applic BID TP Last administered on 03/06/19 20:32; Admin Dose 1 APPLIC; Start 03/01/19 at 21:00 Furosemide (Lasix) 20 mg DAILY PO Last administered on 03/06/19 09:30; Admin Dose 20 MG; Start 03/02/19 at 09:00 Assessment/Plan Hospital Course (Demo Recall) Cardiovascular preop evaluation Hip fracture : Status post hip surgery Hypertension Aortic valve disorder Dementia Encephalopathy Hypokalemia Elevated BNP level. Clinically does not appear to be in decompensated heart failure though Recommendations: Replace potassium prn cont low-dose Lasix We will replace electrolytes as needed Continue the beta-william as tolerated POST OP CARE and DVT prophylaxis as per IM/ ortho rec Thank you for his referral SADE DEMPSEY MD [facility] SADE DEMPSEY MD Mar 07, 2019 08:32
[2019-03-07] MEDS: ARIPIPRAZOLE 5 MG TAB PO SCH (09:36)
[2019-03-07] MEDS: FAMOTIDINE 20 MG TAB PO SCH (09:36)
[2019-03-07] MEDS: FUROSEMIDE 20 MG TAB PO SCH (09:36)
[2019-03-07] MEDS: ATENOLOL 50 MG TAB PO SCH (09:37)
[2019-03-07] MEDS: ENOXAPARIN 40 MG/0.4 ML SYG SC SCH (09:38)
[2019-03-07] MEDS: DAKINS 0.0125%(1/40) 473 ML SOLUTION TP SCH ×2 (13:14→20:37)
[2019-03-07] MEDS: BALSAM PERU/CASTOR OIL 60 GM TUBE TOP SCH ×2 (13:14→20:37)
--- NOTE | 2019-03-07 13:55 | PN ---
Date/Time of Note Date/Time of Note DATE: 03/07/19 TIME: 13:54 Objective Vitals Vital Signs Date Temp Pulse Resp B/P (MAP) Pulse Ox O2 O2 Flow FiO2 Time Delivery Rate 03/07/19 98.3 62 18 106/61 97 Room Air 08:25 (76) Intake and Output 03/06/19 03/06/19 03/07/19 1515:00 23:00 07:00 IntakeIntake Total 240 ml BalanceBalance 240 ml Results Result Diagram: 03/07/19 0423 03/07/19 0423 Medications Medications Current Medications Aripiprazole (Abilify) 5 mg DAILY PO Last administered on 03/07/19 09:36; Admin Dose 5 MG; Start 02/28/19 at 09:00 Atenolol (Tenormin) 50 mg DAILY PO Last administered on 03/07/19 09:37; Admin Dose 50 MG; Start 02/28/19 at 09:00 Escitalopram Oxalate (Lexapro) 10 mg QHS PO Last administered on 03/06/19at 20:32; Admin Dose 10 MG; Start 02/27/19 at 21:00 Tramadol HCl (Ultram) 50 mg Q8H PRN PO PAIN LEVEL 4-6; Start 02/27/19 at 18:30 Quetiapine Fumarate (Seroquel) 50 mg HS PO Last administered on 03/06/19 20:32; Admin Dose 50 MG; Start 02/27/19 at 21:00 IV Flush (NS 3 ml) 3 ml PER PROTOCOL IV ; Start 02/27/19 at 18:30 Ondansetron HCl (Zofran Inj) 4 mg Q6H PRN IV NAUSEA/VOMITING; Start 02/27/19 at 18:30 Nitroglycerin (Nitroglycerin (Sl Tab) 0.4 Mg) 1 tab Q5M PRN SL .CHEST PAIN; Start 02/27/19 at 18:30 Acetaminophen (Tylenol Tab) 650 mg Q6H PRN PO .PAIN 1-3 OR TEMP Last administered on 03/06/19at 21:17; Admin Dose 650 MG; Start 02/27/19 at 18:30 Docusate Sodium (Colace) 100 mg Q12H PRN PO .CONSTIPATION; Start 02/27/19 at 18:30 Magnesium Hydroxide (Milk Of Mag) 30 ml DAILY PRN PO .CONSTIPATION Last administered on 03/03/19 17:53; Admin Dose 30 ML; Start 02/27/19 at 18:30 Famotidine (Pepcid) 20 mg DAILY PO Last administered on 03/07/19 09:36; Admin Dose 20 MG; Start 02/27/19 at 21:00 Miscellaneous Information (Pending [facility] Order For Wound Care) This patient h a... PRN PRN XX WOUND CARE; Start 02/28/19 at 11:00 Oxycodone HCl (Roxicodone) 10 mg Q4H PRN PO pain 6-10; Start 02/28/19 at 20:00 Oxycodone HCl (Roxicodone) 5 mg Q4H PRN PO .PAIN Last administered on 03/03/19at 10:54; Admin Dose 5 MG; Start 02/28/19 at 20:00 Hydromorphone HCl (Dilaudid) 0.5 mg Q3H PRN IV .BREAKTHROUGH PAIN; Start 02/28/19 at 20:00 Acetaminophen (Tylenol Tab) 1,000 mg Q8 PO Last administered on 03/07/19 13:13; Admin Dose 1,000 MG; Start 02/28/19 at 22:00 Ondansetron HCl (Zofran Inj) 4 mg Q4H PRN IV NAUSEA/VOMITING; Start 03/01/19 at 20:00 Pantoprazole (Protonix Tab) 40 mg DAILY@06 PO Last administered on 03/07/19 07:04; Admin Dose 40 MG; Start 03/01/19 at 06:00 Simethicone (Mylicon) 80 mg TID PRN PO .GAS; Start 02/28/19 at 20:00 Senna/Docusate Sodium (Senokot-S) 2 tab BID PRN PO .CONSTIPATION Last administered on 03/03/19 13:56; Admin Dose 2 TAB; Start 02/28/19 at 20:00 Magnesium Hydroxide (Milk Of Mag) 30 ml HS PRN PO .CONSTIPATION; Start 02/28/19 at 20:00 Bisacodyl (Dulcolax Supp) 10 mg DAILY PRN [place] .CONSTIPATION; Start 02/28/19 at 20:00 Sodium Biphosphate/ Sodium Phosphate (Fleet Enema) 133 ml DAILY PRN [place] .CONSTIPATION; Start 02/28/19 at 20:00 Diphenhydramine HCl (Benadryl) 25 mg Q4H PRN IV .ITCHING; Start 02/28/19 at 20:00 Naloxone HCl (Narcan) 0.2 mg Q2M PRN IV .RESP RATE; Start 02/28/19 at 20:00 IV Flush (NS 3 ml) 3 ml per protocol IV ; Start 02/28/19 at 20:00 Enoxaparin Sodium (Lovenox) 40 mg DAILY SC Last administered on 03/07/19at 09:38; Admin Dose 40 MG; Start 03/02/19 at 09:00 Sodium Hypochlorite (Dakins Diluted ()) 1 applic BID TP Last administered on 03/07/19at 13:14; Admin Dose 1 APPLIC; Start 03/01/19 at 21:00 Furosemide (Lasix) 20 mg DAILY PO Last administered on 03/07/19at 09:36; Admin Dose 20 MG; Start 03/02/19 at 09:00 Ciprofloxacin/ Dextrose 200 ml @ 200 mls/hr Q12 IVPB ; Start 03/07/19 at 13:30 VTE Prophylaxis Risk score (from [facility] [place])>0 risk: 6 SCD applied (from [facility] [place]): Yes Lines/Catheters IV Catheter Type: Feliciano in Place: No Assessment/Plan Hospital Course Subjective Patient feeling well, no acute issues overnight Objective Physical exam General: Patient is laying in bed and answers questions appropriately Mentation: Patient is alert and oriented Head: Normocephalic atraumatic Eyes: EOMI, pupils reactive to light Neck: Supple, nontender, midline Respiratory: Clear to auscultation bilaterally Cardiovascular: regular rate, no obvious murmurs Gastrointestinal: non-tender to palpation, bowel sounds heard. Neurological: Moves all extremities spontaneously Skin: surgical site bandaged, CDI Assessment/Plan 1. Left hip fracture s/p mechanical fall s/p repair 02/28 - stable - PT on board, will confirm acceptance into ARU - Ortho on board and appreciate consultation. s/p Intramedullary nail of left intertrochanteric hip fracture 02/28 - LE dopplers negative 2. PAD - seen on arterial studies - Vascular consultation appreciated. Stated patient does need angiogram however will be done after patient's fracture has healed in the outpatient setting per vascular surgeon Leukocytosis -Mild however is not in conjunction with her previous lab reads, UA positive for UTI. Urinary tract infection -Start Cipro IV 3. Left heel ulcer - appreciate Podiatry recommendations - offloading boots - local wound care 4. Acute metabolic encephalopathy- stable 5. Dysphagia - speech on board and advancing diet as tolerated 6. Acute on chronic heart failure- stable - ECHO results noted with preserved EF - CXR negative for congestion - Cardiology consultation appreciated 7. Dementia - stable 8. Disposition -Ensure stability of WBC before sending to the acute rehab unit, potentially tomorrow. JUSTINA BIRCH Mar 07, 2019 13:55
[2019-03-07] MEDS: CIPROFLOXACIN 400MG/D5W 200 ML IVPB SCH ×2 (14:07→20:36)
[2019-03-07 14:59] VITALS: BP 102/56; PULSE 61; RESP 18
[2019-03-07 20:33] VITALS: BP 120/58; PULSE 59; RESP 18
[2019-03-07] MEDS: ESCITALOPRAM 10 MG TAB PO SCH (20:37)
[2019-03-07] MEDS: QUETIAPINE 25 MG TAB PO SCH (20:37)
[2019-03-08] MEDS: PANTOPRAZOLE (EC) 40 MG TAB PO SCH (05:20)
[2019-03-08] MEDS: ACETAMINOPHEN 500 MG TAB PO SCH ×3 (05:20→21:43)
[2019-03-08 07:21] VITALS: BP 131/57; PULSE 59; RESP 19
[2019-03-08] MEDS: CIPROFLOXACIN 400MG/D5W 200 ML IVPB SCH ×2 (08:08→21:37)
[2019-03-08] MEDS: ATENOLOL 50 MG TAB PO SCH (08:09)
[2019-03-08] MEDS: ARIPIPRAZOLE 5 MG TAB PO SCH (08:10)
[2019-03-08] MEDS: FAMOTIDINE 20 MG TAB PO SCH (08:10)
[2019-03-08] MEDS: DAKINS 0.0125%(1/40) 473 ML SOLUTION TP SCH ×2 (08:10→21:38)
[2019-03-08] MEDS: BALSAM PERU/CASTOR OIL 60 GM TUBE TOP SCH ×2 (08:10→21:38)
[2019-03-08] MEDS: FUROSEMIDE 20 MG TAB PO SCH (08:10)
[2019-03-08] MEDS: ENOXAPARIN 40 MG/0.4 ML SYG SC SCH (08:11)
--- NOTE | 2019-03-08 09:29 | CONS ---
Consult Date/Type/Reason Admit Date/Time February 27, 2019 at 17:40 Initial Consult Date 02/28/19 Type of Consultation: cv Requesting Provider: VIRI STOKES MD Date/Time of Note DATE: 03/08/19 TIME: 09:29 Subjective Interventional cardiology follow-up progress note Subjective: Discussed with staff PT IS OFF tele now Patient status post orthopedic surgery March 01, 2019. No cardiac complications reported no reports of any cp or pressure Objective: General: no acute distress HEENT: NC/AT. pupils are equal. round. NECK: NO JVD. no stridor. CV: RRR. systolic murmur; no gallop or rubs. PULM: no wheezing or rhonchi. GI: SOFT, NT, ND, no rebound or guarding Extremity: trace B/L LE edema. no clubbing. neuro: awake Psych: calm rectal: deferred Echocardiogram was personally reviewed which shows: ormal left ventricular systolic function. Normal left ventricular cavity size. Mild concentric left ventricular hypertrophy. Ejection fraction is visually estimated at 65 %. Tissue Doppler/Mitral Doppler indices are consistent with impaired relaxation (Stage I diastolic dysfunction). Mitral valve leaflets appear mildly thickened. Mild mitral annular calcification. Trace mitral regurgitation. Aortic valve Max velocity 2.18 m/sec. Max PG 19.00 mmHg. Mean PG 11.00 mmHg. Aortic valve area 2.80 cm2. Aortic sclerosis without significant stenosis. Trace aortic valve regurgitation. Normal appearance of the tricuspid valve. The estimated Peak RVSP is 16 mmHg. There is trace tricuspid regurgitation. Objective Vitals Vital Signs Date Temp Pulse Resp B/P (MAP) Pulse Ox O2 O2 Flow FiO2 Time Delivery Rate 03/08/19 98.0 59 19 131/57 97 Room Air 07:21 (81) Intake and Output 03/07/19 03/07/19 03/08/19 1515:00 23:00 07:00 IntakeIntake Total 240 ml 520 ml 100 ml BalanceBalance 240 ml 520 ml 100 ml Results/Medications Result Diagram: 03/08/19 0428 03/08/19 0428 Results 24 hrs Laboratory Tests Test 03/08/19 04:28 White Blood Count 11.9 H Red Blood Count 3.53 L Hemoglobin 10.0 L Hematocrit 31.9 L Mean Corpuscular Volume 90.4 Mean Corpuscular Hemoglobin 28.3 L Mean Corpuscular Hemoglobin Concent 31.3 L Red Cell Distribution Width 14.3 Platelet Count 411 Mean Platelet Volume 9.6 Immature Granulocytes % 1.900 H Neutrophils % 66.2 Lymphocytes % 21.7 Monocytes % 6.5 Eosinophils % 3.3 Basophils % 0.4 Nucleated Red Blood Cells % 0.0 Immature Granulocytes # 0.230 H Neutrophils # 7.9 H Lymphocytes # 2.6 Monocytes # 0.8 Eosinophils # 0.4 Basophils # 0.1 Nucleated Red Blood Cells # 0.0 Sodium Level 138 Potassium Level 3.7 Chloride Level 102 Carbon Dioxide Level 33 H Anion Gap 3 L Blood Urea Nitrogen 12 Creatinine 0.57 Est Glomerular Filtrat Rate mL/min Glucose Level 78 Calcium Level 8.0 L Phosphorus Level 3.8 Magnesium Level 1.9 Home Meds Reported Medications Aripiprazole (Aripiprazole) 5 Mg Tablet, 1 TAB ORAL DAILY 02/27/19 Escitalopram Oxalate* (Escitalopram Oxalate*) 10 Mg Tablet, 1 TAB ORAL QHS 02/27/19 Furosemide* (Furosemide*) 20 Mg Tablet, 1 TAB ORAL DAILY 02/27/19 Atenolol* (Atenolol*) 50 Mg Tablet, 1 TAB ORAL DAILY 02/27/19 Baclofen* (Baclofen*) 10 Mg Tablet, 1 TAB ORAL BID PRN for MUSCLE SPASMS 02/27/19 Hydrochlorothiazide (Hydrochlorothiazide) 12.5 Mg Capsule, 1 CAP ORAL DAILY 02/27/19 Quetiapine Fumarate* (Quetiapine Fumarate*) 50 Mg Tablet, 50 MG PO HS, TAB 02/27/19 Ibuprofen* (Ibuprofen*) 800 Mg Tablet, 1 TAB ORAL Q8 02/27/19 Tramadol HCl (Tramadol HCl) 50 Mg Tablet, 1 TAB ORAL Q12 02/27/19 Medications Current Medications Aripiprazole (Abilify) 5 mg DAILY PO Last administered on 03/08/19at 08:10; Admin Dose 5 MG; Start 02/28/19 at 09:00 Atenolol (Tenormin) 50 mg DAILY PO Last administered on 03/07/19at 09:37; Admin Dose 50 MG; Start 02/28/19 at 09:00 Escitalopram Oxalate (Lexapro) 10 mg QHS PO Last administered on 03/07/19at 20:37; Admin Dose 10 MG; Start 02/27/19 at 21:00 Tramadol HCl (Ultram) 50 mg Q8H PRN PO PAIN LEVEL 4-6; Start 02/27/19 at 18:30 Quetiapine Fumarate (Seroquel) 50 mg HS PO Last administered on 03/07/19 20:37; Admin Dose 50 MG; Start 02/27/19 at 21:00 IV Flush (NS 3 ml) 3 ml PER PROTOCOL IV ; Start 02/27/19 at 18:30 Ondansetron HCl (Zofran Inj) 4 mg Q6H PRN IV NAUSEA/VOMITING; Start 02/27/19 at 18:30 Nitroglycerin (Nitroglycerin (Sl Tab) 0.4 Mg) 1 tab Q5M PRN SL .CHEST PAIN; Start 02/27/19 at 18:30 Acetaminophen (Tylenol Tab) 650 mg Q6H PRN PO .PAIN 1-3 OR TEMP Last administered on 03/06/19 21:17; Admin Dose 650 MG; Start 02/27/19 at 18:30 Docusate Sodium (Colace) 100 mg Q12H PRN PO .CONSTIPATION; Start 02/27/19 at 18:30 Magnesium Hydroxide (Milk Of Mag) 30 ml DAILY PRN PO .CONSTIPATION Last administered on 03/03/19 17:53; Admin Dose 30 ML; Start 02/27/19 at 18:30 Famotidine (Pepcid) 20 mg DAILY PO Last administered on 03/08/19 08:10; Admin Dose 20 MG; Start 02/27/19 at 21:00 Miscellaneous Information (Pending [facility] Order For Wound Care) This patient briones... PRN PRN XX WOUND CARE; Start 02/28/19 at 11:00 Oxycodone HCl (Roxicodone) 10 mg Q4H PRN PO pain 6-10; Start 02/28/19 at 20:00 Oxycodone HCl (Roxicodone) 5 mg Q4H PRN PO .PAIN Last administered on 03/03/19at 10:54; Admin Dose 5 MG; Start 02/28/19 at 20:00 Hydromorphone HCl (Dilaudid) 0.5 mg Q3H PRN IV .BREAKTHROUGH PAIN; Start 02/28/19 at 20:00 Acetaminophen (Tylenol Tab) 1,000 mg Q8 PO Last administered on 03/08/19 05:20; Admin Dose 1,000 MG; Start 02/28/19 at 22:00 Ondansetron HCl (Zofran Inj) 4 mg Q4H PRN IV NAUSEA/VOMITING; Start 03/01/19 at 20:00 Pantoprazole (Protonix Tab) 40 mg DAILY@06 PO Last administered on 03/08/19 05:20; Admin Dose 40 MG; Start 03/01/19 at 06:00 Simethicone (Mylicon) 80 mg TID PRN PO .GAS; Start 02/28/19 at 20:00 Senna/Docusate Sodium (Senokot-S) 2 tab BID PRN PO .CONSTIPATION Last administered on 03/03/19 13:56; Admin Dose 2 TAB; Start 02/28/19 at 20:00 Magnesium Hydroxide (Milk Of Mag) 30 ml HS PRN PO .CONSTIPATION; Start 02/28/19 at 20:00 Bisacodyl (Dulcolax Supp) 10 mg DAILY PRN [place] .CONSTIPATION; Start 02/28/19 at 2 0:00 Sodium Biphosphate/ Sodium Phosphate (Fleet Enema) 133 ml DAILY PRN PA .CONSTIPATION; Start 02/28/19 at 20:00 Diphenhydramine HCl (Benadryl) 25 mg Q4H PRN IV .ITCHING; Start 02/28/19 at 20:00 Naloxone HCl (Narcan) 0.2 mg Q2M PRN IV .RESP RATE; Start 02/28/19 at 20:00 IV Flush (NS 3 ml) 3 ml per protocol IV ; Start 02/28/19 at 20:00 Enoxaparin Sodium (Lovenox) 40 mg DAILY SC Last administered on 03/08/19 08:11; Admin Dose 40 MG; Start 03/02/19 at 09:00 Sodium Hypochlorite (Dakins Diluted (40)) 1 applic BID TP Last administered on 03/08/19 08:10; Admin Dose 1 APPLIC; Start 03/01/19 at 21:00 Furosemide (Lasix) 20 mg DAILY PO Last administered on 03/08/19 08:10; Admin Dose 20 MG; Start 03/02/19 at 09:00 Ciprofloxacin/ Dextrose 200 ml @ 200 mls/hr Q12 IVPB Last administered on 6/5 /19at 08:08; Admin Dose 200 MLS/HR; Start 03/07/19 at 13:30 Assessment/Plan Hospital Course (Demo Recall) Cardiovascular preop evaluation Hip fracture : Status post hip surgery Hypertension Aortic valve disorder Dementia Encephalopathy Hypokalemia Elevated BNP level. Clinically does not appear to be in decompensated heart failure though Recommendations: Replace potassium prn cont low-dose Lasix We will replace electrolytes as needed Continue the beta-william as tolerated POST OP CARE and DVT prophylaxis as per IM/ ortho rec Thank you for his referral SADE DEMPSEY MD [facility] SADE DEMPSEY MD Mar 08, 2019 09:29
--- NOTE | 2019-03-08 13:40 | PN ---
Date/Time of Note Date/Time of Note DATE: 03/08/19 TIME: 13:37 Objective Vitals Vital Signs Date Temp Pulse Resp B/P (MAP) Pulse Ox O2 O2 Flow FiO2 Time Delivery Rate 03/08/19 98.0 59 19 131/57 97 Room Air 07:21 (81) Intake and Output 03/07/19 03/07/19 03/08/19 1515:00 23:00 07:00 IntakeIntake Total 240 ml 520 ml 100 ml BalanceBalance 240 ml 520 ml 100 ml Results Result Diagram: 03/08/19 0428 03/08/19 0428 Medications Medications Current Medications Aripiprazole (Abilify) 5 mg DAILY PO Last administered on 03/08/19 08:10; Admin Dose 5 MG; Start 02/28/19 at 09:00 Atenolol (Tenormin) 50 mg DAILY PO Last administered on 03/07/19 09:37; Admin Dose 50 MG; Start 02/28/19 at 09:00 Escitalopram Oxalate (Lexapro) 10 mg QHS PO Last administered on 03/07/19at 20:37; Admin Dose 10 MG; Start 02/27/19 at 21:00 Tramadol HCl (Ultram) 50 mg Q8H PRN PO PAIN LEVEL 4-6; Start 02/27/19 at 18:30 Quetiapine Fumarate (Seroquel) 50 mg HS PO Last administered on 03/07/19 20:37; Admin Dose 50 MG; Start 02/27/19 at 21:00 IV Flush (NS 3 ml) 3 ml PER PROTOCOL IV ; Start 02/27/19 at 18:30 Ondansetron HCl (Zofran Inj) 4 mg Q6H PRN IV NAUSEA/VOMITING; Start 02/27/19 at 18:30 Nitroglycerin (Nitroglycerin (Sl Tab) 0.4 Mg) 1 tab Q5M PRN SL .CHEST PAIN; Start 02/27/19 at 18:30 Acetaminophen (Tylenol Tab) 650 mg Q6H PRN PO .PAIN 1-3 OR TEMP Last administered on 03/06/19 21:17; Admin Dose 650 MG; Start 02/27/19 at 18:30 Docusate Sodium (Colace) 100 mg Q12H PRN PO .CONSTIPATION; Start 02/27/19 at 18:30 Magnesium Hydroxide (Milk Of Mag) 30 ml DAILY PRN PO .CONSTIPATION Last administered on 03/03/19 17:53; Admin Dose 30 ML; Start 02/27/19 at 18:30 Famotidine (Pepcid) 20 mg DAILY PO Last administered on 03/08/19 08:10; Admin Dose 20 MG; Start 02/27/19 at 21:00 Miscellaneous Information (Pending [facility] Order For Wound Care) This patient briones... PRN PRN XX WOUND CARE; Start 02/28/19 at 11:00 Oxycodone HCl (Roxicodone) 10 mg Q4H PRN PO pain 6-10; Start 02/28/19 at 20:00 Oxycodone HCl (Roxicodone) 5 mg Q4H PRN PO .PAIN Last administered on 03/03/19at 10:54; Admin Dose 5 MG; Start 02/28/19 at 20:00 Hydromorphone HCl (Dilaudid) 0.5 mg Q3H PRN IV .BREAKTHROUGH PAIN; Start 02/28/19 at 20:00 Acetaminophen (Tylenol Tab) 1,000 mg Q8 PO Last administered on 03/08/19 05:20; Admin Dose 1,000 MG; Start 02/28/19 at 22:00 Ondansetron HCl (Zofran Inj) 4 mg Q4H PRN IV NAUSEA/VOMITING; Start 03/01/19 at 20:00 Pantoprazole (Protonix Tab) 40 mg DAILY@06 PO Last administered on 03/08/19 05:20; Admin Dose 40 MG; Start 03/01/19 at 06:00 Simethicone (Mylicon) 80 mg TID PRN PO .GAS; Start 02/28/19 at 20:00 Senna/Docusate Sodium (Senokot-S) 2 tab BID PRN PO .CONSTIPATION Last administered on 03/03/19at 13:56; Admin Dose 2 TAB; Start 02/28/19 at 20:00 Magnesium Hydroxide (Milk Of Mag) 30 ml HS PRN PO .CONSTIPATION; Start 02/28/19 at 20:00 Bisacodyl (Dulcolax Supp) 10 mg DAILY PRN [place] .CONSTIPATION; Start 02/28/19 at 20:00 Sodium Biphosphate/ Sodium Phosphate (Fleet Enema) 133 ml DAILY PRN [place] .CONSTIPATION; Start 02/28/19 at 20:00 Diphenhydramine HCl (Benadryl) 25 mg Q4H PRN IV .ITCHING; Start 02/28/19 at 20:00 Naloxone HCl (Narcan) 0.2 mg Q2M PRN IV .RESP RATE; Start 02/28/19 at 20:00 IV Flush (NS 3 ml) 3 ml per protocol IV ; Start 02/28/19 at 20:00 Enoxaparin Sodium (Lovenox) 40 mg DAILY SC Last administered on 03/08/19at 08:11; Admin Dose 40 MG; Start 03/02/19 at 09:00 Sodium Hypochlorite (Dakins Diluted ()) 1 applic BID TP Last administered on 03/08/19at 08:10; Admin Dose 1 APPLIC; Start 03/01/19 at 21:00 Furosemide (Lasix) 20 mg DAILY PO Last administered on 03/08/19at 08:10; Admin Dose 20 MG; Start 03/02/19 at 09:00 Ciprofloxacin/ Dextrose 200 ml @ 200 mls/hr Q12 IVPB Last administered on 03/08/19at 08:08; Admin Dose 200 MLS/HR; Start 03/07/19 at 13:30 VTE Prophylaxis Risk score (from Ns)>0 risk: 10 SCD applied (from Ns): Yes Lines/Catheters IV Catheter Type: Feliciano in Place: No Assessment/Plan Hospital Course Subjective Patient feeling well, no acute issues overnight Objective Physical exam General: Patient is laying in bed and answers questions appropriately Mentation: Patient is alert and oriented Head: Normocephalic atraumatic Eyes: EOMI, pupils reactive to light Neck: Supple, nontender, midline Respiratory: Clear to auscultation bilaterally Cardiovascular: regular rate, no obvious murmurs Gastrointestinal: non-tender to palpation, bowel sounds heard. Neurological: Moves all extremities spontaneously Skin: surgical site bandaged, CDI Assessment/Plan 1. Left hip fracture s/p mechanical fall s/p repair 02/28 - stable - PT on board, is not accepted into acute rehab unit, will begin to look for senior living facility if family is agreeable - Ortho on board and appreciate consultation. s/p Intramedullary nail of left intertrochanteric hip fracture 02/28 - LE dopplers negative 2. PAD - seen on arterial studies - Vascular consultation appreciated. Stated patient does need angiogram however will be done after patient's fracture has healed in the outpatient setting per vascular surgeon Leukocytosis -Mild however is not in conjunction with her previous lab reads, UA positive for UTI. Urinary tract infection -Continue Cipro IV 3. Left heel ulcer - appreciate Podiatry recommendations - offloading boots - local wound care 4. Acute metabolic encephalopathy- stable 5. Dysphagia - speech on board and advancing diet as tolerated 6. Acute on chronic heart failure- stable - ECHO results noted with preserved EF - CXR negative for congestion - Cardiology consultation appreciated 7. Dementia - stable 8. Disposition -Not accepted into acute rehab unit, patient not participating enough, spoke with son regarding senior living facility, would ultimately like for patient to be at home but needs items such as hospital bed and need to confirm 24-hour care, at this time senior living facility appears to be a safer choice however will need to continue to speak with son after he discusses with his family. JUSTINA BIRCH Mar 08, 2019 13:40
[2019-03-08 14:43] VITALS: BP 106/56; PULSE 63; RESP 18
[2019-03-08 19:40] VITALS: BP 97/54; PULSE 68; RESP 16
[2019-03-08] MEDS: ESCITALOPRAM 10 MG TAB PO SCH (21:37)
[2019-03-08] MEDS: QUETIAPINE 25 MG TAB PO SCH (21:38)
[2019-03-09 02:25] VITALS: BP 106/58; PULSE 70; RESP 18
[2019-03-09] MEDS: PANTOPRAZOLE (EC) 40 MG TAB PO SCH (06:58)
[2019-03-09] MEDS: ACETAMINOPHEN 500 MG TAB PO SCH ×3 (06:58→21:22)
[2019-03-09 07:33] VITALS: BP 117/57; PULSE 63; RESP 18
--- NOTE | 2019-03-09 08:09 | CONS ---
Consult Date/Type/Reason Admit Date/Time February 27, 2019 at 17:40 Initial Consult Date 02/28/19 Type of Consultation: cv Requesting Provider: VIRI STOKES MD Date/Time of Note DATE: 03/09/19 TIME: 08:08 Subjective Interventional cardiology follow-up progress note Subjective: Discussed with staff Patient status post orthopedic surgery March 01, 2019. No cardiac complications reported no reports of any cp or pressure Objective: General: no acute distress HEENT: NC/AT. pupils are equal. round. NECK: NO JVD. no stridor. CV: RRR. systolic murmur; no gallop or rubs. PULM: no wheezing or rhonchi. GI: SOFT, NT, ND, no rebound or guarding Extremity: trace B/L LE edema. no clubbing. neuro: awake Psych: calm rectal: deferred Echocardiogram was personally reviewed which shows: ormal left ventricular systolic function. Normal left ventricular cavity size. Mild concentric left ventricular hypertrophy. Ejection fraction is visually estimated at 65 %. Tissue Doppler/Mitral Doppler indices are consistent with impaired relaxation (Stage I diastolic dysfunction). Mitral valve leaflets appear mildly thickened. Mild mitral annular calcification. Trace mitral regurgitation. Aortic valve Max velocity 2.18 m/sec. Max PG 19.00 mmHg. Mean PG 11.00 mmHg. Aortic valve area 2.80 cm2. Aortic sclerosis without significant stenosis. Trace aortic valve regurgitation. Normal appearance of the tricuspid valve. The estimated Peak RVSP is 16 mmHg. There is trace tricuspid regurgitation. Objective Vitals Vital Signs Date Temp Pulse Resp B/P (MAP) Pulse Ox O2 O2 Flow FiO2 Time Delivery Rate 03/09/19 97.5 63 18 117/57 93 Room Air 07:33 (77) Intake and Output 03/08/19 03/08/19 03/09/19 1515:00 23:00 07:00 IntakeIntake Total 680 ml 320 ml BalanceBalance 680 ml 320 ml Results/Medications Result Diagram: 03/09/19 0534 03/09/19 0534 Results 24 hrs Laboratory Tests Test 03/09/19 05:34 White Blood Count 10.2 Red Blood Count 3.56 L Hemoglobin 10.1 L Hematocrit 32.4 L Mean Corpuscular Volume 91.0 Mean Corpuscular Hemoglobin 28.4 L Mean Corpuscular Hemoglobin Concent 31.2 L Red Cell Distribution Width 14.6 H Platelet Count 428 H Mean Platelet Volume 9.5 Immature Granulocytes % 1.900 H Neutrophils % 58.0 Lymphocytes % 27.2 Monocytes % 8.8 Eosinophils % 3.8 Basophils % 0.3 Nucleated Red Blood Cells % 0.0 Immature Granulocytes # 0.190 H Neutrophils # 5.9 Lymphocytes # 2.8 Monocytes # 0.9 Eosinophils # 0.4 Basophils # 0.0 Nucleated Red Blood Cells # 0.0 Sodium Level 137 Potassium Level 3.6 Chloride Level 100 Carbon Dioxide Level 32 H Anion Gap 5 Blood Urea Nitrogen 14 Creatinine 0.59 Est Glomerular Filtrat Rate mL/min Glucose Level 90 Calcium Level 8.0 L Phosphorus Level 4.0 Magnesium Level 1.8 Home Meds Reported Medications Aripiprazole (Aripiprazole) 5 Mg Tablet, 1 TAB ORAL DAILY 02/27/19 Escitalopram Oxalate* (Escitalopram Oxalate*) 10 Mg Tablet, 1 TAB ORAL QHS 02/27/19 Furosemide* (Furosemide*) 20 Mg Tablet, 1 TAB ORAL DAILY 02/27/19 Atenolol* (Atenolol*) 50 Mg Tablet, 1 TAB ORAL DAILY 02/27/19 Baclofen* (Baclofen*) 10 Mg Tablet, 1 TAB ORAL BID PRN for MUSCLE SPASMS 02/27/19 Hydrochlorothiazide (Hydrochlorothiazide) 12.5 Mg Capsule, 1 CAP ORAL DAILY 02/27/19 Quetiapine Fumarate* (Quetiapine Fumarate*) 50 Mg Tablet, 50 MG PO HS, TAB 02/27/19 Ibuprofen* (Ibuprofen*) 800 Mg Tablet, 1 TAB ORAL Q8 02/27/19 Tramadol HCl (Tramadol HCl) 50 Mg Tablet, 1 TAB ORAL Q12 02/27/19 Medications Current Medications Aripiprazole (Abilify) 5 mg DAILY PO Last administered on 03/08/19at 08:10; Admin Dose 5 MG; Start 02/28/19 at 09:00 Atenolol (Tenormin) 50 mg DAILY PO Last administered on 03/07/19at 09:37; Admin D ose 50 MG; Start 02/28/19 at 09:00 Escitalopram Oxalate (Lexapro) 10 mg QHS PO Last administered on 03/08/19at 21:37; Admin Dose 10 MG; Start 02/27/19 at 21:00 Tramadol HCl (Ultram) 50 mg Q8H PRN PO PAIN LEVEL 4-6; Start 02/27/19 at 18:30 Quetiapine Fumarate (Seroquel) 50 mg HS PO Last administered on 03/08/19at 21:38; Admin Dose 50 MG; Start 02/27/19 at 21:00 IV Flush (NS 3 ml) 3 ml PER PROTOCOL IV ; Start 02/27/19 at 18:30 Ondansetron HCl (Zofran Inj) 4 mg Q6H PRN IV NAUSEA/VOMITING; Start 02/27/19 at 18:30 Nitroglycerin (Nitroglycerin (Sl Tab) 0.4 Mg) 1 tab Q5M PRN SL .CHEST PAIN; Start 02/27/19 at 18:30 Acetaminophen (Tylenol Tab) 650 mg Q6H PRN PO .PAIN 1-3 OR TEMP Last administered on 03/06/19 21:17; Admin Dose 650 MG; Start 02/27/19 at 18:30 Docusate Sodium (Colace) 100 mg Q12H PRN PO .CONSTIPATION; Start 02/27/19 at 18:30 Magnesium Hydroxide (Milk Of Mag) 30 ml DAILY PRN PO .CONSTIPATION Last administered on 03/03/19at 17:53; Admin Dose 30 ML; Start 02/27/19 at 18:30 Famotidine (Pepcid) 20 mg DAILY PO Last administered on 03/08/19 08:10; Admin Dose 20 MG; Start 02/27/19 at 21:00 Miscellaneous Information (Pending [facility] Order For Wound Care) This patient briones... PRN PRN XX WOUND CARE; Start 02/28/19 at 11:00 Oxycodone HCl (Roxicodone) 10 mg Q4H PRN PO pain 6-10; Start 02/28/19 at 20:00 Oxycodone HCl (Roxicodone) 5 mg Q4H PRN PO .PAIN Last administered on 03/03/19at 10:54; Admin Dose 5 MG; Start 02/28/19 at 20:00 Hydromorphone HCl (Dilaudid) 0.5 mg Q3H PRN IV .BREAKTHROUGH PAIN; Start 02/28/19 at 20:00 Acetaminophen (Tylenol Tab) 1,000 mg Q8 PO Last administered on 6/6/19at 06:58; Admin Dose 1,000 MG; Start 02/28/19 at 22:00 Ondansetron HCl (Zofran Inj) 4 mg Q4H PRN IV NAUSEA/VOMITING; Start 03/01/19 at 20:00 Pantoprazole (Protonix Tab) 40 mg DAILY@06 PO Last administered on 03/09/19 06:58; Admin Dose 40 MG; Start 03/01/19 at 06:00 Simethicone (Mylicon) 80 mg TID PRN PO .GAS; Start 02/28/19 at 20:00 Senna/Docusate Sodium (Senokot-S) 2 tab BID PRN PO .CONSTIPATION Last administered on 03/03/19 13:56; Admin Dose 2 TAB; Start 02/28/19 at 20:00 Magnesium Hydroxide (Milk Of Mag) 30 ml HS PRN PO .CONSTIPATION; Start 02/28/19 at 20:00 Bisacodyl (Dulcolax Supp) 10 mg DAILY PRN [place] .CONSTIPATION; Start 02/28/19 at 20:00 Sodium Biphosphate/ Sodium Phosphate (Fleet Enema) 133 ml DAILY PRN [place] .CONSTIPATION; Start 02/28/19 at 20:00 Diphenhydramine HCl (Benadryl) 25 mg Q4H PRN IV .ITCHING; Start 02/28/19 at 20:00 Naloxone HCl (Narcan) 0.2 mg Q2M PRN IV .RESP RATE; Start 02/28/19 at 20:00 IV Flush (NS 3 ml) 3 ml per protocol IV ; Start 02/28/19 at 20:00 Enoxaparin Sodium (Lovenox) 40 mg DAILY SC Last administered on 03/08/19 08:11; Admin Dose 40 MG; Start 03/02/19 at 09:00 Sodium Hypochlorite (Dakins Diluted ()) 1 applic BID TP Last administered on 03/08/19 21:38; Admin Dose 1 APPLIC; Start 03/01/19 at 21:00 Furosemide (Lasix) 20 mg DAILY PO Last administered on 03/08/19 08:10; Admin Dose 20 MG; Start 03/02/19 at 09:00 Ciprofloxacin/ Dextrose 200 ml @ 200 mls/hr Q12 IVPB Last administered on 03/08/19 21:37; Admin Dose 200 MLS/HR; Start 03/07/19 at 13:30 Assessment/Plan Hospital Course (Demo Recall) Cardiovascular preop evaluation Hip fracture : Status post hip surgery Hypertension Aortic valve disorder Dementia Encephalopathy Hypokalemia Elevated BNP level. Clinically does not appear to be in decompensated heart failure though Recommendations: Replace potassium ang Mg prn cont low-dose Lasix Continue the beta-william as tolerated POST OP CARE and DVT prophylaxis as per IM/ ortho rec Thank you for his referral SADE DEMPSEY MD [facility] SADE DEMPSEY MD Mar 09, 2019 08:09
[2019-03-09] MEDS ORDERED: MAGNESIUM SULFATE 2 GM/50 ML 50 ML IVPB ONE (09:00)
[2019-03-09] MEDS: ENOXAPARIN 40 MG/0.4 ML SYG SC SCH (09:35)
[2019-03-09] MEDS: ARIPIPRAZOLE 5 MG TAB PO SCH (09:37)
[2019-03-09] MEDS: CEPHALEXIN 500 MG CAP PO SCH ×2 (09:37→21:21)
[2019-03-09] MEDS: FAMOTIDINE 20 MG TAB PO SCH (09:38)
[2019-03-09] MEDS: FUROSEMIDE 20 MG TAB PO SCH (09:38)
[2019-03-09] MEDS: DAKINS 0.0125%(1/40) 473 ML SOLUTION TP SCH ×2 (09:39→21:23)
[2019-03-09] MEDS: BALSAM PERU/CASTOR OIL 60 GM TUBE TOP SCH ×2 (09:39→21:23)
[2019-03-09] MEDS: ATENOLOL 50 MG TAB PO SCH (09:39)
[2019-03-09] MEDS ORDERED: POTASSIUM CHLORIDE (SR) 10 MEQ TAB PO ONE (10:00)
[2019-03-09] MEDS: oxyCODONE 5 MG TAB PO PRN (13:28)
--- NOTE | 2019-03-09 14:26 | PN ---
Date/Time of Note Date/Time of Note DATE: 03/09/19 TIME: 14:25 Objective Vitals Vital Signs Date Temp Pulse Resp B/P (MAP) Pulse Ox O2 O2 Flow FiO2 Time Delivery Rate 03/09/19 97.5 63 18 117/57 93 Room Air 07:33 (77) Intake and Output 03/08/19 03/08/19 03/09/19 1515:00 23:00 07:00 IntakeIntake Total 680 ml 320 ml BalanceBalance 680 ml 320 ml Results Result Diagram: 03/09/19 0534 03/09/19 0534 Medications Medications Current Medications Aripiprazole (Abilify) 5 mg DAILY PO Last administered on 03/09/19 09:37; Admin Dose 5 MG; Start 02/28/19 at 09:00 Atenolol (Tenormin) 50 mg DAILY PO Last administered on 03/09/19 09:39; Admin Dose 50 MG; Start 02/28/19 at 09:00 Escitalopram Oxalate (Lexapro) 10 mg QHS PO Last administered on 03/08/19 21:37; Admin Dose 10 MG; Start 02/27/19 at 21:00 Tramadol HCl (Ultram) 50 mg Q8H PRN PO PAIN LEVEL 4-6; Start 02/27/19 at 18:30 Quetiapine Fumarate (Seroquel) 50 mg HS PO Last administered on 03/08/19 21:38; Admin Dose 50 MG; Start 02/27/19 at 21:00 IV Flush (NS 3 ml) 3 ml PER PROTOCOL IV ; Start 02/27/19 at 18:30 Ondansetron HCl (Zofran Inj) 4 mg Q6H PRN IV NAUSEA/VOMITING; Start 02/27/19 at 18:30 Nitroglycerin (Nitroglycerin (Sl Tab) 0.4 Mg) 1 tab Q5M PRN SL .CHEST PAIN; Start 02/27/19 at 18:30 Acetaminophen (Tylenol Tab) 650 mg Q6H PRN PO .PAIN 1-3 OR TEMP Last administered on 03/06/19 21:17; Admin Dose 650 MG; Start 02/27/19 at 18:30 Docusate Sodium (Colace) 100 mg Q12H PRN PO .CONSTIPATION; Start 02/27/19 at 18:30 Magnesium Hydroxide (Milk Of Mag) 30 ml DAILY PRN PO .CONSTIPATION Last administered on 03/03/19 17:53; Admin Dose 30 ML; Start 02/27/19 at 18:30 Famotidine (Pepcid) 20 mg DAILY PO Last administered on 03/09/19 09:38; Admin Dose 20 MG; Start 02/27/19 at 21:00 Miscellaneous Information ([facility] This patient briones... PRN PRN XX WOUND CARE; Start 02/28/19 at 11:00 Oxycodone HCl (Roxicodone) 10 mg Q4H PRN PO pain 6-10; Start 02/28/19 at 20:00 Oxycodone HCl (Roxicodone) 5 mg Q4H PRN PO .PAIN Last administered on 03/09/19 13:28; Admin Dose 5 MG; Start 02/28/19 at 20:00 Hydromorphone HCl (Dilaudid) 0.5 mg Q3H PRN IV .BREAKTHROUGH PAIN; Start 02/28/19 at 20:00 Acetaminophen (Tylenol Tab) 1,000 mg Q8 PO Last administered on 03/09/19 06:58; Admin Dose 1,000 MG; Start 02/28/19 at 22:00 Ondansetron HCl (Zofran Inj) 4 mg Q4H PRN IV NAUSEA/VOMITING; Start 03/01/19 at 20:00 Pantoprazole (Protonix Tab) 40 mg DAILY@06 PO Last administered on 03/09/19 06:58; Admin Dose 40 MG; Start 03/01/19 at 06:00 Simethicone (Mylicon) 80 mg TID PRN PO .GAS; Start 02/28/19 at 20:00 Senna/Docusate Sodium (Senokot-S) 2 tab BID PRN PO .CONSTIPATION Last administered on 03/03/19 13:56; Admin Dose 2 TAB; Start 02/28/19 at 20:00 Magnesium Hydroxide (Milk Of Mag) 30 ml HS PRN PO .CONSTIPATION; Start 02/28/19 at 20:00 Bisacodyl (Dulcolax Supp) 10 mg DAILY PRN [place] .CONSTIPATION; Start 02/28/19 at 20:00 Sodium Biphosphate/ Sodium Phosphate (Fleet Enema) 133 ml DAILY PRN [place] .CONSTIPATION; Start 02/28/19 at 20:00 Diphenhydramine HCl (Benadryl) 25 mg Q4H PRN IV .ITCHING; Start 02/28/19 at 20:00 Naloxone HCl (Narcan) 0.2 mg Q2M PRN IV .RESP RATE; Start 02/28/19 at 20:00 IV Flush (NS 3 ml) 3 ml per protocol IV ; Start 02/28/19 at 20:00 Enoxaparin Sodium (Lovenox) 40 mg DAILY SC Last administered on 03/09/19 09:35; Admin Dose 40 MG; Start 03/02/19 at 09:00 Sodium Hypochlorite (Dakins Diluted ()) 1 applic BID TP Last administered on 03/09/19 09:39; Admin Dose 1 APPLIC; Start 03/01/19 at 21:00 Furosemide (Lasix) 20 mg DAILY PO Last administered on 03/09/19 09:38; Admin Dose 20 MG; Start 03/02/19 at 09:00 Cephalexin (Keflex) 500 mg Q12 PO Last administered on 03/09/19 09:37; Admin Dose 500 MG; Start 03/09/19 at 09:00; Stop 03/14/19 at 08:59 VTE Prophylaxis Risk score (from Ns)>0 risk: 6 SCD applied (from Ns): Yes Lines/Catheters IV Catheter Type: Feliciano in Place: No Assessment/Plan Hospital Course Subjective Patient feeling well, no acute issues overnight Objective Physical exam General: Patient is laying in bed and answers questions appropriately Mentation: Patient is alert and oriented Head: Normocephalic atraumatic Eyes: EOMI, pupils reactive to light Neck: Supple, nontender, midline Respiratory: Clear to auscultation bilaterally Cardiovascular: regular rate, no obvious murmurs Gastrointestinal: non-tender to palpation, bowel sounds heard. Neurological: Moves all extremities spontaneously Skin: surgical site bandaged, CDI Assessment/Plan 1. Left hip fracture s/p mechanical fall s/p repair 02/28 - stable - PT on board, is not accepted into acute rehab unit, will begin to look for fpc facility if family is agreeable - Ortho on board and appreciate consultation. s/p Intramedullary nail of left intertrochanteric hip fracture 02/28 - LE dopplers negative -Lovenox needed until April 11 2. PAD - seen on arterial studies - Vascular consultation appreciated. Stated patient does need angiogram however will be done after patient's fracture has healed in the outpatient setting per vascular surgeon Leukocytosis -Mild however is not in conjunction with her previous lab reads, UA positive for UTI. Urinary tract infection -Continue Cipro IV 3. Left heel ulcer - appreciate Podiatry recommendations - offloading boots - local wound care 4. Acute metabolic encephalopathy- stable 5. Dysphagia - speech on board and advancing diet as tolerated 6. Acute on chronic heart failure- stable - ECHO results noted with preserved EF - CXR negative for congestion - Cardiology consultation appreciated 7. Dementia - stable 8. Disposition -Patient's family wishes to discuss with case management on location of fpc facility, awaiting their decision, plan is for nursing facility, plan DC tomorrow. -Lovenox needed until April 11 for traumatic fracture JUSTINA BIRCH Mar 09, 2019 14:26
[2019-03-09 14:34] VITALS: BP 104/55; PULSE 85; RESP 20
[2019-03-09 21:01] VITALS: BP 153/72; PULSE 84; RESP 20
[2019-03-09] MEDS: QUETIAPINE 25 MG TAB PO SCH (21:21)
[2019-03-09] MEDS: ESCITALOPRAM 10 MG TAB PO SCH (21:22)
[2019-03-10 02:48] VITALS: BP 148/71; PULSE 88; RESP 17
[2019-03-10] MEDS: PANTOPRAZOLE (EC) 40 MG TAB PO SCH (06:34)
[2019-03-10] MEDS: ACETAMINOPHEN 500 MG TAB PO SCH ×2 (06:34→14:43)
[2019-03-10 07:21] VITALS: BP 119/65; PULSE 66; RESP 18
--- NOTE | 2019-03-10 08:23 | CONS ---
Consult Date/Type/Reason Admit Date/Time February 27, 2019 at 17:40 Initial Consult Date 02/28/19 Type of Consultation: cv Requesting Provider: VIRI STOKES MD Date/Time of Note DATE: 03/10/19 TIME: 08:22 Subjective Interventional cardiology follow-up progress note Subjective: Discussed with staff Patient status post orthopedic surgery March 01, 2019. No cardiac complications reported no reports of any cp or pressure Objective: General: no acute distress HEENT: NC/AT. pupils are equal. round. NECK: NO JVD. no stridor. CV: RRR. systolic murmur; no gallop or rubs. PULM: no wheezing or rhonchi. GI: SOFT, NT, ND, no rebound or guarding Extremity: trace B/L LE edema. no clubbing. neuro: awake Psych: calm rectal: deferred Echocardiogram was personally reviewed which shows: ormal left ventricular systolic function. Normal left ventricular cavity size. Mild concentric left ventricular hypertrophy. Ejection fraction is visually estimated at 65 %. Tissue Doppler/Mitral Doppler indices are consistent with impaired relaxation (Stage I diastolic dysfunction). Mitral valve leaflets appear mildly thickened. Mild mitral annular c alcification. Trace mitral regurgitation. Aortic valve Max velocity 2.18 m/sec. Max PG 19.00 mmHg. Mean PG 11.00 mmHg. Aortic valve area 2.80 cm2. Aortic sclerosis without significant stenosis. Trace aortic valve regurgitation. Normal appearance of the tricuspid valve. The estimated Peak RVSP is 16 mmHg. There is trace tricuspid regurgitation. Objective Vitals Vital Signs Date Temp Pulse Resp B/P (MAP) Pulse Ox O2 O2 Flow FiO2 Time Delivery Rate 03/10/19 98.7 66 18 119/65 98 07:21 (83) 03/10/19 Room Air 02:48 Intake and Output 03/09/19 03/09/19 03/10/19 1515:00 23:00 07:00 IntakeIntake Total 170 ml 180 ml BalanceBalance 170 ml 180 ml Results/Medications Result Diagram: 03/10/19 0501 03/10/19 0501 Results 24 hrs Laboratory Tests Test 03/10/19 05:01 White Blood Count 12.2 H Red Blood Count 3.77 L Hemoglobin 10.5 L Hematocrit 33.9 L Mean Corpuscular Volume 89.9 Mean Corpuscular Hemoglobin 27.9 L Mean Corpuscular Hemoglobin Concent 31.0 L Red Cell Distribution Width 14.8 H Platelet Count 461 H Mean Platelet Volume 9.6 Immature Granulocytes % 1.600 H Neutrophils % 68.9 Lymphocytes % 19.6 Monocytes % 7.5 Eosinophils % 2.0 Basophils % 0.4 Nucleated Red Blood Cells % 0.0 Immature Granulocytes # 0.190 H Neutrophils # 8.4 H Lymphocytes # 2.4 Monocytes # 0.9 Eosinophils # 0.2 Basophils # 0.1 Nucleated Red Blood Cells # 0.0 Sodium Level 138 Potassium Level 3.7 Chloride Level 102 Carbon Dioxide Level 33 H Anion Gap 3 L Blood Urea Nitrogen 12 Creatinine 0.52 Est Glomerular Filtrat Rate mL/min Glucose Level 94 Calcium Level 8.2 L Phosphorus Level 4.0 Magnesium Level 2.1 Home Meds Reported Medications Aripiprazole (Aripiprazole) 5 Mg Tablet, 1 TAB ORAL DAILY 02/27/19 Escitalopram Oxalate* (Escitalopram Oxalate*) 10 Mg Tablet, 1 TAB ORAL QHS 02/27/19 Furosemide* (Furosemide*) 20 Mg Tablet, 1 TAB ORAL DAILY 02/27/19 Atenolol* (Atenolol*) 50 Mg Tablet, 1 TAB ORAL DAILY 02/27/19 Baclofen* (Baclofen*) 10 Mg Tablet, 1 TAB ORAL BID PRN for MUSCLE SPASMS 02/27/19 Hydrochlorothiazide (Hydrochlorothiazide) 12.5 Mg Capsule, 1 CAP ORAL DAILY 02/27/19 Quetiapine Fumarate* (Quetiapine Fumarate*) 50 Mg Tablet, 50 MG PO HS, TAB 02/27/19 Ibuprofen* (Ibuprofen*) 800 Mg Tablet, 1 TAB ORAL Q8 02/27/19 Tramadol HCl (Tramadol HCl) 50 Mg Tablet, 1 TAB ORAL Q12 02/27/19 Medications Current Medications Aripiprazole (Abilify) 5 mg DAILY PO Last administered on 03/09/19at 09:37; Admin Dose 5 MG; Start 02/28/19 at 09:00 Atenolol (Tenormin) 50 mg DAILY PO Last administered on 03/09/19at 09:39; Admin Dose 50 MG; Start 02/28/19 at 09:00 Escitalopram Oxalate (Lexapro) 10 mg QHS PO Last administered on 03/09/19at 21:22; Admin Dose 10 MG; Start 02/27/19 at 21:00 Tramadol HCl (Ultram) 50 mg Q8H PRN PO PAIN LEVEL 4-6; Start 02/27/19 at 18:30 Quetiapine Fumarate (Seroquel) 50 mg HS PO Last administered on 03/09/19at 21:21; Admin Dose 50 MG; Start 02/27/19 at 21:00 IV Flush (NS 3 ml) 3 ml PER PROTOCOL IV ; Start 02/27/19 at 18:30 Ondansetron HCl (Zofran Inj) 4 mg Q6H PRN IV NAUSEA/VOMITING; Start 02/27/19 at 18:30 Nitroglycerin (Nitroglycerin (Sl Tab) 0.4 Mg) 1 tab Q5M PRN SL .CHEST PAIN; Start 02/27/19 at 18:30 Acetaminophen (Tylenol Tab) 650 mg Q6H PRN PO .PAIN 1-3 OR TEMP Last administered on 03/06/19at 21:17; Admin Dose 650 MG; Start 02/27/19 at 18:30 Docusate Sodium (Colace) 100 mg Q12H PRN PO .CONSTIPATION; Start 02/27/19 at 18:30 Magnesium Hydroxide (Milk Of Mag) 30 ml DAILY PRN PO .CONSTIPATION Last administered on 03/03/19at 17:53; Admin Dose 30 ML; Start 02/27/19 at 18:30 Famotidine (Pepcid) 20 mg DAILY PO Last administered on 03/09/19at 09:38; Admin Dose 20 MG; Start 02/27/19 at 21:00 Miscellaneous Information (Pending [facility] Order For Wound Care) This patient briones... PRN PRN XX WOUND CARE; Start 02/28/19 at 11:00 Oxycodone HCl (Roxicodone) 10 mg Q4H PRN PO pain 6-10; Start 02/28/19 at 20:00 Oxycodone HCl (Roxicodone) 5 mg Q4H PRN PO .PAIN Last administered on 03/09/19at 13:28; Admin Dose 5 MG; Start 02/28/19 at 20:00 Hydromorphone HCl (Dilaudid) 0.5 mg Q3H PRN IV .BREAKTHROUGH PAIN; Start 02/28/19 at 20:00 Acetaminophen (Tylenol Tab) 1,000 mg Q8 PO Last administered on 03/10/19 06:34; Admin Dose 1,000 MG; Start 02/28/19 at 22:00 Ondansetron HCl (Zofran Inj) 4 mg Q4H PRN IV NAUSEA/VOMITING; Start 03/01/19 at 20:00 Pantoprazole (Protonix Tab) 40 mg DAILY@06 PO Last administered on 03/10/19 06:34; Admin Dose 40 MG; Start 03/01/19 at 06:00 Simethicone (Mylicon) 80 mg TID PRN PO .GAS; Start 02/28/19 at 20:00 Senna/Docusate Sodium (Senokot-S) 2 tab BID PRN PO .CONSTIPATION Last administered on 03/03/19 13:56; Admin Dose 2 TAB; Start 02/28/19 at 20:00 Magnesium Hydroxide (Milk Of Mag) 30 ml HS PRN PO .CONSTIPATION; Start 02/28/19 at 20:00 Bisacodyl (Dulcolax Supp) 10 mg DAILY PRN [place] .CONSTIPATION; Start 02/28/19 at 20:00 Sodium Biphosphate/ Sodium Phosphate (Fleet Enema) 133 ml DAILY PRN [place] .CONSTIPATION; Start 02/28/19 at 20:00 Diphenhydramine HCl (Benadryl) 25 mg Q4H PRN IV .ITCHING; Start 02/28/19 at 20:00 Naloxone HCl (Narcan) 0.2 mg Q2M PRN IV .RESP RATE; Start 02/28/19 at 20:00 IV Flush (NS 3 ml) 3 ml per protocol IV ; Start 02/28/19 at 20:00 Enoxaparin Sodium (Lovenox) 40 mg DAILY SC Last administered on 03/09/19 09:35; Admin Dose 40 MG; Start 03/02/19 at 09:00 Sodium Hypochlorite (Dakins Diluted (40)) 1 applic BID TP Last administered on 03/09/19 21:23; Admin Dose 1 APPLIC; Start 03/01/19 at 21:00 Furosemide (Lasix) 20 mg DAILY PO Last administered on 03/09/19 09:38; Admin Dose 20 MG; Start 03/02/19 at 09:00 Cephalexin (Keflex) 500 mg Q12 PO Last administered on 6/6/19at 21:21; Admin Dose 500 MG; Start 03/09/19 at 09:00; Stop 03/14/19 at 08:59 Assessment/Plan Hospital Course (Demo Recall) Cardiovascular preop evaluation Hip fracture : Status post hip surgery Hypertension Aortic valve disorder Dementia Encephalopathy Hypokalemia Elevated BNP level. Clinically does not appear to be in decompensated heart failure though Recommendations: Replace potassium ang Mg prn cont low-dose Lasix Continue the beta-william as tolerated POST OP CARE and DVT prophylaxis as per IM/ ortho rec No further cardiac recommendation at this point. We will follow-up as needed over the weekend. Thank you for his referral SADE DEMPSEY MD [facility] SADE DEMPSEY MD Mar 10, 2019 08:23
[2019-03-10] MEDS ORDERED: CIPROFLOXACIN 500 MG TAB PO SCH (09:00)
[2019-03-10] MEDS: FAMOTIDINE 20 MG TAB PO SCH (09:54)
[2019-03-10] MEDS: ARIPIPRAZOLE 5 MG TAB PO SCH (09:54)
[2019-03-10] MEDS: BALSAM PERU/CASTOR OIL 60 GM TUBE TOP SCH (09:55)
[2019-03-10] MEDS: DAKINS 0.0125%(1/40) 473 ML SOLUTION TP SCH (09:55)
[2019-03-10] MEDS: ATENOLOL 50 MG TAB PO SCH (09:55)
[2019-03-10] MEDS: FUROSEMIDE 20 MG TAB PO SCH (09:55)
[2019-03-10] MEDS: ENOXAPARIN 40 MG/0.4 ML SYG SC SCH (09:59)
--- NOTE | 2019-03-10 11:05 | DS ---
Date/Time of Note Date/Time of Note DATE: 03/10/19 TIME: 11:04 Discharge Summary Admission/Discharge Info Admit Date/Time February 27, 2019 at 17:40 Discharge Date/Time Patient Condition: Stable Hospital Course Patient is Citizen Of [place] female with a past medical history significant for peripheral arterial disease, acute on chronic heart failure, mild to moderate dementia who presents to [facility]. Patient underwent treatment for left hip fracture status post mechanical fall and had a repair done on February 28, 2019. Patient will continue to need Lovenox for DVT prophylaxis until April 11. Patient subsequently had lower extremity ulcers that was seen by wound care and appropriately treated patient was also seen by vascular surgeon for peripheral arterial disease that was seen on arterial studies. Vascular surgeon did state that patient does need angiogram however he stated that this will need to be done after the patient's fracture is healed in the outpatient setting. Patient is back to baseline mental capacity which is mild to moderate dementia, only Citizen Of [place] speaking and patient is doing well however does not participate with physical therapy very well and was subsequently not accepted into the acute rehab unit. [facility] family recommendations. Patient did have a mild leukocytosis near discharge date and patient was positive for UTI. Patient was put on IV ciprofloxacin and did well and once sensitivities were out patient was transitioned over to Keflex however patient white count did bump up slightly to 12 so therefore patient was put back on ciprofloxacin and will finish 5 more [facility] at the jail facility. Patient doing well and patient is family, son, Florin, was notified the patient will need to follow-up with outpatient vascular surgeon Dr. Bry Natarajan, after she has recovered further from her hip surgery which at that point he will perform angiogram and intervention of the bilateral lower extremitieshe suspects she has some chronic arterial insufficiency. Patient doing well and stable for transfer. Patient also seen by sliver cutter who adjusted medic ations. Discharge diagnosis Left hip fracture status post mechanical fall status post repair done on February 28, 2019, needs to be on Lovenox until April 11, resolving Peripheral artery disease, needs to follow-up with Dr. Bry Natarajan in the outpatient setting for follow-up angiogram Urinary tract infection Lower extremity ulcers, needs wound care Dysphagia, able to tolerate p.o. intake however needs speech therapy evaluation and treatment Acute on chronic heart failure Dementia Home Meds Reported Medications Aripiprazole (Aripiprazole) 5 Mg Tablet, 1 TAB ORAL DAILY 02/27/19 Escitalopram Oxalate* (Escitalopram Oxalate*) 10 Mg Tablet, 1 TAB ORAL QHS 02/27/19 Furosemide* (Furosemide*) 20 Mg Tablet, 1 TAB ORAL DAILY 02/27/19 Atenolol* (Atenolol*) 50 Mg Tablet, 1 TAB ORAL DAILY 02/27/19 Baclofen* (Baclofen*) 10 Mg Tablet, 1 TAB ORAL BID PRN for MUSCLE SPASMS 02/27/19 Hydrochlorothiazide (Hydrochlorothiazide) 12.5 Mg Capsule, 1 CAP ORAL DAILY 02/27/19 Quetiapine Fumarate* (Quetiapine Fumarate*) 50 Mg Tablet, 50 MG PO HS, TAB 02/27/19 Ibuprofen* (Ibuprofen*) 800 Mg Tablet, 1 TAB ORAL Q8 02/27/19 Tramadol HCl (Tramadol HCl) 50 Mg Tablet, 1 TAB ORAL Q12 02/27/19 Primary Care Provider Not On Staff Doctor Time spent on discharge: > 30 minutes Pending Labs Laboratory Tests Test 03/10/19 05:01 White Blood Count 12.2 10^3/ul (4.8-10.8) Red Blood Count 3.77 10^6/ul (4.20-5.40) Hemoglobin 10.5 g/dl (12.0-16.0) Hematocrit 33.9 % (37.0-47.0) Mean Corpuscular Volume 89.9 fl (82.0-101.0) Mean Corpuscular Hemoglobin 27.9 pg (29.0-33.0) Mean Corpuscular Hemoglobin Concent 31.0 g/dl (32.0-37.0) Red Cell Distribution Width 14.8 % (11.5-14.5) Platelet Count 461 10^3/UL (140-415) Mean Platelet Volume 9.6 fl (7.4-10.4) Immature Granulocytes % 1.600 % (0.001-0.429) Neutrophils % 68.9 % (39.0-77.0) Lymphocytes % 19.6 % (15.0-51.0) Monocytes % 7.5 % (0.0-11.0) Eosinophils % 2.0 % (0.0-7.0) Basophils % 0.4 % (0.0-2.0) Nucleated Red Blood Cells % 0.0 /100WBC (0.0-0.0) Immature Granulocytes # 0.190 10^3/ul (0.0-0.031) Neutrophils # 8.4 10^3/ul (1.6-7.5) Lymphocytes # 2.4 10^3/ul (0.8-2.9) Monocytes # 0.9 10^3/ul (0.3-0.9) Eosinophils # 0.2 10^3/ul (0.0-0.5) Basophils # 0.1 10^3/ul (0.0-0.1) Nucleated Red Blood Cells # 0.0 10^3/ul (0.0-0.0) Sodium Level 138 mmol/L (135-144) Potassium Level 3.7 mmol/L (3.5-5.1) Chloride Level 102 mmol/L (97-110) Carbon Dioxide Level 33 mmol/L (21-31) Anion Gap 3 (5-13) Blood Urea Nitrogen 12 mg/dl (7-20) Creatinine 0.52 mg/dl (0.44-1.00) Est Glomerular Filtrat Rate mL/min mL/min (>60) Glucose Level 94 mg/dl (70-220) Calcium Level 8.2 mg/dl (8.4-10.2) Phosphorus Level 4.0 mg/dl (2.5-4.9) Magnesium Level 2.1 mg/dl (1.7-2.5) JUSTINA BIRCH Mar 10, 2019 11:05
[2019-03-10] MEDS ORDERED: CIPR500T4 PO (11:07)
[2019-03-10] MEDS ORDERED: ENOX40DI2 SC (11:07)
[2019-03-10] MEDS ORDERED: PANT40TA4 PO (11:07)
[2019-03-10] MEDS ORDERED: LAS20 PO (11:07)
--- NOTE | 2019-03-10 14:07 | PN ---
Date/Time of Note Date/Time of Note DATE: 03/10/19 TIME: 13:53 Assessment/Plan Lines/Catheters IV Catheter Type (from Nrs): Saline Lock Feliciano in Place (from Nrsg): No Assessment/Plan Assessment/Plan BLE heel ulcers and PAD, s/p R hip ORIF Offload the heels and paint the wounds with betadine bid OK for SNF transfer I will see her again in the office next week She will need BLE angiogram / revascularization for limb salvage Subjective 24 Hr Interval Summary No c/o. No pain. Exam/Review of Systems Vital Signs Vitals Vital Signs Date Temp Pulse Resp B/P (MAP) Pulse Ox O2 O2 Flow FiO2 Time Delivery Rate 03/10/19 98.7 66 18 119/65 98 07:21 (83) 03/10/19 Room Air 02:48 Intake and Output 03/09/19 03/09/19 03/10/19 1515:00 23:00 07:00 IntakeIntake Total 170 ml 180 ml BalanceBalance 170 ml 180 ml Exam Free Text/Dictation R heel ulcer dry gangrene, stable L heel ulcer is drying out, no sign of infection, no erythema or drainage Results Result Diagram: 03/10/19 0501 03/10/19 0501 MICHAEL KHAN MD Mar 10, 2019 14:07
[2019-03-10 14:56] VITALS: BP 126/88; PULSE 78; RESP 18
== END 2019-03-10 18:00 | DRG 480 ==
LOC: E/R 15:36 → 6WM 17:40 → MS1 03-04 00:53
PROVIDERS: ADMIT Internal Medicine; ATTEND Internal Medicine
PROC: 0QS706Z Reposition Left Upper Femur with Intramedullary Internal Fixation Device, Open Approach (ICD-10-PCS; principal; 2019-02-28 17:00)
DX: S72.142A Displaced intertrochanteric fracture of left femur, initial encounter for closed fracture (principal); G93.41 Metabolic encephalopathy; I50.33 Acute on chronic diastolic (congestive) heart failure; L97.429 Non-pressure chronic ulcer of left heel and midfoot with unspecified severity; I11.0 Hypertensive heart disease with heart failure; F03.90 Unspecified dementia, unspecified severity, without behavioral disturbance, psychotic disturbance, mood disturbance, and anxiety; E87.6 Hypokalemia; F02.80 Dementia in other diseases classified elsewhere, unspecified severity, without behavioral disturbance, psychotic disturbance, mood disturbance, and anxiety; R13.10 Dysphagia, unspecified; R26.9 Unspecified abnormalities of gait and mobility; R07.9 Chest pain, unspecified
CPT/HCPCS: 36415; 70450; 71045; 72170; 73530; 73550; 80048; 80053; 81001; 81003; 82550; 82553; 82962; 83036; 83690; 83735; 83880; 84100; 84132; 84484; 85025; 85610; 85730; 86850; 86900; 86901; 87086; 92526; 92610; 93005; 93306; 93922; 93970; 96374; 96375; 97110; 97162; 97167; 97530; 97535; A4310; J0690; J0744; J1100; J1650; J1885; J1940; J2060; J2250; J2370; J2405; J2765; J2795; J3010; J3475; J3480; J7030; J7120; P9045